=== PATIENT | female | born 1995 | race Asian ===

== ENCOUNTER 2018-08-20 16:25 | Inpatient (IN) | payer OTHER ==
[~2018-08-20] VITALS: Ht 160 cm; Wt 57.5 kg
[2018-08-20] MEDS: DEXTROSE 5%-0.45% NACL 1,000 ML IV SCH (00:30)
[2018-08-20] MEDS ORDERED: LEVOFLOXACIN 750MG/D5W (PMX) 150 ML IVPB ONE (16:30)
[2018-08-20] MEDS ORDERED: VANCOMYCIN 1 GM (PMX) 250 ML IVPB ONE (16:30)
[2018-08-20] MEDS ORDERED: SODIUM CHLORIDE 0.9% 1L BAG IV* STA (16:30)
[2018-08-20] MEDS ORDERED: CEFEPIME 2GM/50 ML (PMX) 50 ML IVPB STA (16:30)
[2018-08-20] MEDS ORDERED: FER325 PO (17:22)
[2018-08-20] MEDS ORDERED: CALC1TAB93 PO (17:23)
[2018-08-20] MEDS ORDERED: HYDR200T39 PO (17:24)
[2018-08-20] MEDS ORDERED: PRED10TA PO (17:25)
--- NOTE | 2018-08-20 17:30 | NUR ---
@[id number] MD DO LUMBAR PUNCTURE FIRST BEFORE CT SCAN. AWARE WE WILL BE IN CT DIVERGENCE FOR BACK TO BACK C-DIFF PATIENTS FOR CT.
--- NOTE | 2018-08-20 17:42 | ERD ---
ER Documentation Chief Complaint Chief Complaint ALOC, traveled from [facility] arrived from [facility] to ER HPI This is a 22-year-old female who presents to the emergency department landing at [facility] Airport from [facility] where she was traveling recreationally. The patient was born in [facility] and at the age of 12 moved to the [facility] she currently resides. She has received all of her immunizations. The patient left the [facility] on August 03, 2017, 18 days prior to arrival. She traveled to [facility] and subsequently [facility]. On August 10, 2018 the patient had been admitted to [facility] in [facility]. According to the medical records from this [facility] they indicated that the patient has a history of lupus on CellCept but was not taking it regularly. When she had presented to the emergency department she was confused and had a seizure. She had been seen by another doctor 2 days before admission was diagnosed with a sore throat and low-grade fever until this was a viral infection. In August 10 the patient been confused and was speaking nonsensical and was brought to the hospital. The patient had a CT scan of her head performed and was found to be unremarkable. The patient had a seizure in the emergency department that they documented lasted for 1 minute and resolved with 5 mg of Valium. A lumbar puncture was done that showed an elevated opening pressure at 26, elevated protein and low sugar. She had been started on Keppra and was treated empirically for possible viral meningitis. The patient had been started on acyclovir. She was admitted to the neuro intensive care unit. She had a chest radiograph performed that showed a right lower lobe pneumonia and was treated for aspiration. The patient had been given ceftriaxone which was discontinued on day 7. She had a rheumatology and infectious disease consult. She had a positive Dilcia test with low C3 and C4 level that could be a result of her SLE flareup. The strapper and buffer started the patient on Solu-Medrol high- dose 1 g 3 days and then switch to p.o. form. The patient also had autoimmune panels which all came back negative. C3 and C4 level had been improving on the follow-up laboratory work. The strapper and buffer started CellCept on August 17, 2018. The patient on August 19, 2018 was determined stable for transport back to the [facility]. 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 She received sedation in route and the last dose of sedation had been given 3 hours prior to arrival. When the patient arrived to [facility] the physician traveling from [facility] phoned [phone] and EMS transferred the patient to [facility] as requested by the patient's primary care physician Dr. Buckley who stated she is capitated to [facility]. . The patient's [place] language is Tristanian and she speaks very little Lithuanian. EMS indicated that the patient was drowsy but easily arousable with an NG tube that had been placed in [facility] on August 19 prior to transfer as a speech therapist indicated the patient was unsafe to eat normally. ROS All systems reviewed and are negative except as per history of present illness. Medications Home Meds Reported Medications Prednisone* (Prednisone*) 10 Mg Tab, 10 MG PO BID, TAB 08/20/18 Hydroxychloroquine Sulfate* (Hydroxychloroquine Sulfate*) 200 Mg Tablet, 200 MG PO BID, TAB 08/20/18 Calcium Carbonate/Vitamin D3 (OYSTER SHELL 500 MG + VIT D TB) 1 Each Tablet, 1 EACH PO BID, TAB 08/20/18 Ferrous Sulfate* (Ferrous Sulfate*) 325 Mg Tabec, 325 MG PO DAILY, TAB 08/20/18 Allergies Allergies: Coded Allergies: No Known Allergy (Unverified , 08/20/18) Physical Exam Vitals Vital Signs Date Temp Pulse Resp B/P (MAP) Pulse Ox O2 O2 Flow FiO2 Time Delivery Rate 08/20/18 68 14 105/62 97 Room Air 18:30 (76) 08/20/18 70 16 104/62 98 Room Air 17:45 (76) 08/20/18 70 13 92/63 (73) 98 Room Air 16:45 08/20/18 98.3 70 18 107/59 95 16:31 (75) Physical Exam Constitutional:Well-developed. Well-nourished. HEENT:Normocephalic. Atraumatic.Pupils were equal round reactive to light. Very dry mucous membranes.No tonsillar exudates. Neck: No nuchal rigidity. No lymphadenopathy. No posterior cervical spine tenderness or step-offs. Respiratory: Not using accessory muscles of respiration.Lungs were clear to auscultation bilaterally. No rhonchi. No rales. No wheezing. Cardiovascular: Regular rate regular rhythm.No murmurs. No rubs were appreciated.S1, S2 normal. Distal pulses are palpable 2+ bilaterally. GI: Abdomen was soft. Nontender. Non Distended. No pulsatile abdominal masses or bruits. No rebound. No guarding. Bowel sounds were present and normal. Muscle skeletal: Full range of motion of both the upper upper extremities. Patient did not follow verbal command and there is minimal movement of the bilateral lower extremities no assymetrical calf tenderness or swelling. Skin: No petechia, no purpura. No lesions on the palms or the soles of the feet. No maculopapular rash. NEURO: Gait unobserved as patient was too weak to ambulate. Patient was lethargic and open eyes to sternal rub. Withdrew to pain. Did not follow simple verbal commands. Mumbles incomprehensible sounds. Result Diagram: 08/20/18 1730 08/20/18 1730 Results 24 hrs Laboratory Tests Test 08/20/18 16:30 08/20/18 17:27 08/20/18 17:30 08/20/18 18:40 Blood Gas Blood arterial Specimen Source Arterial Blood 08/20/2018 5:38: Date Drawn 14 PM Arterial Blood 7.438 pH (Temp corrected) Arterial Blood 42.8 mmhg pCO2 (Temp correct) Arterial Blood 87.1 mmHG pO2 (Temp corrected) Arterial Blood 28.3 mmol/L HCO3 Arterial Blood 3.7 mmol/L Base Excess Arterial Blood 96.3 mmHG Oxygen Saturatio n Charles Test ACCEPTAB Arterial Blood Right Radial Gas Puncture Site Arterial 0.3 % Blood Carboxyhem oglobin Arterial Blood 0.4 % Methemoglobin Blood Gas A-a O2 11.4 mmHg Differential Oxyhemoglobin 95.6 % Percent Blood Gas 37.0 C Temperature Blood Gas ROOM AIR Modality FiO2 21.0 % Blood Gas M.D. Notified Whom Blood Gas 08/20/2018 5:50: Notified Time 14 PM POC Venous 2.3 mmol/L Lactate White Blood 9.7 10^3/ul Count Red Blood Count 3.20 10^6/ul Hemoglobin 9.3 g/dl Hematocrit 29.8 % Mean Corpuscular 93.1 fl Volume Mean Corpuscular 29.1 pg Hemoglobin Mean Corpuscular 31.2 g/dl Hemoglobin Mattie nt Red Cell 14.5 % Distribution Width Platelet Count 383 10^3/UL Mean Platelet 9.8 fl Volume Immature 3.300 % Granulocytes % Neutrophils % 83.9 % Lymphocytes % 8.9 % Monocytes % 3.8 % Eosinophils % 0.0 % Basophils % 0.1 % Nucleated Red 0.0 /100WBC Blood Cells % Immature 0.320 10^3/ul Granulocytes # Neutrophils # 8.1 10^3/ul Lymphocytes # 0.9 10^3/ul Monocytes # 0.4 10^3/ul Eosinophils # 0.0 10^3/ul Basophils # 0.0 10^3/ul Nucleated Red 0.0 10^3/ul Blood Cells # Absolute 0.117 X10^6 Reticulocyte Count Percent 3.7 % Reticulocyte Count Prothrombin Time 12.2 Sec Prothrombin Time 1.0 Ratio INR 0.89 International Normalized Ratio Activated 23.1 Sec Partial Thrombop last Time Urine Color YELLOW Urine Clarity SLIGHTLY CLOUDY Urine pH 6.0 Urine Specific 1.013 [place] Urine Ketones NEGATIVE mg/dL Urine Nitrite NEGATIVE mg/dL Urine Bilirubin NEGATIVE mg/dL Urine NEGATIVE mg/dL Urobilinogen Urine Leukocyte TRACE Camilla/ul Esterase Urine 9 /HPF Microscopic RBC Urine 7 /HPF Microscopic WBC Urine Bacteria FEW /HPF Urine Mucus FEW /HPF Urine Hemoglobin 3+ mg/dL Urine Glucose NEGATIVE mg/dL Urine Total NEGATIVE mg/dl Protein Sodium Level 138 mmol/L Potassium Level 4.3 mmol/L Chloride Level 100 mmol/L Carbon Dioxide 31 mmol/L Level Anion Gap 7 Blood Urea 21 mg/dl Nitrogen Creatinine 0.46 mg/dl Est Glomerular > 60 mL/min Filtrat Rate mL/min Glucose Level 177 mg/dl Calcium Level 8.5 mg/dl Iron Level 84 ug/dl Total Iron 242 ug/dl Binding Capacity Percent Iron 35 % SAT Saturation Ferritin 841.0 ng/ml Total Bilirubin 0.2 mg/dl Direct Bilirubin 0.00 mg/dl Indirect 0.2 mg/dl Bilirubin Aspartate Amino 32 IU/L Transf (AST/SGOT ) Alanine 64 IU/L Aminotransferase (ALT/SGPT) Alkaline 63 IU/L Phosphatase Lactate 693 IU/L Dehydrogenase Troponin I < 0.012 ng/ml Total Protein 6.4 g/dl Albumin 3.2 g/dl Globulin 3.20 g/dl Albumin/Globulin 1.00 Ratio Amylase Level 53 U/L Lipase 33 U/L Serum HCG, NEGATIVE Qualitative Complement C3 47 mg/dl Complement C4 11 mg/dl CSF Tubes 4 Submitted CSF Volume 7.0 ml CSF Appearance CLEAR CSF Color COLORLESS CSF WBC 3 /cmm CSF RBC 0 /uL CSF Cell Count TUBE#1 Tube # CSF Mononuclear 100.0 % Cells % (Auto) CSF Polynuclear 0.0 % WBCs (%) CSF Glucose 79 mg/dl CSF Total 65 mg/dl Protein Test 08/20/18 19:31 POC Venous 1.5 mmol/L Lactate Current Medications Medications Dose Sig/Radha Start Time Status Last (Trade) Ordered Route PRN Stop Time Admin Dose Reason Admin Sodium 1,800 ml BOLUS OVER 2 08/20/18 DC 08/20/18 Chloride HOURS STAT 16:30 17:52 (NS) IV* 08/20/18 16:36 Cefepime HCl 50 ml @ ONCE STAT 08/20/18 DC 08/20/18 100 mls/hr IVPB 16:30 17:52 08/20/18 16:59 Vancomycin 250 ml @ ONCE ONCE 08/20/18 DC 08/20/18 HCl 125 mls/hr IVPB 16:30 19:11 08/20/18 18:29 150 ml @ ONCE ONCE 08/20/18 DC 08/20/18 Levofloxacin/ 100 mls/hr IVPB 16:30 19:48 Dextrose 08/20/18 17:59 Lidocaine 5 ml STK-MED 08/20/18 DC (Xylocaine ONCE .ROUTE 18:01 1% (Mpf)) 08/20/18 18:02 Procedures/MDM The patient presented to the emergency department with an acute and persistent change in their mental status. The differential diagnosis is diverse however reversible causes such as hypoglycemia, opiate overdose, thiamine deficiency were immediately considered. The patient was placed on a registered nurse cardiac, continuous pulse oximetry and IV access was established. The patients airway was secure however hypoxic events such as anemia, shock, or severe pulmonary disease were all considered as etiologies in this patients presentation. Circulation assessed with good cap refill and did not require fluids or pressure support. Finger stick for rapid glucose determined to be normal. The patient had an NG tube that was in place. The patient was pale and diaphoretic but airway was intact. 12 Lead EKG tracing ordered and reviewed by myself showed: Normal sinus rhythm of 72 bpm and no arrhythmia. VA interval normal. QRS duration normal. No ST segment elevation No ST segment depression. No changes consistent with acute ischemia. The interventional radiologist kindly stated that he will perform a lumbar puncture under fluoroscopy. Dr. Hart had performed the procedures I did feel is necessary to repeat the lumbar puncture for documentation and ruling out a possible meningitis. Reviewing the previous results of the patient's imaging performed in [facility] she had a CT head that was unremarkable she had an MRI of the brain that showed frontal leptomeningeal enhancement and an MRI of the brain that showed mild irregularity of her intracranial vessels. Blood cultures urine cultures and influenza were obtained. Urine was negative. Given her recent prolonged immobilization I did feel is necessary to obtain venous duplex ultrasounds of her lower extremities which showed no evidence of a deep vein thrombosis. I repeated the CT scan the patient had today and there is no intracerebral hemorrhage mass-effect or mid line shift. Chest radiograph showed no evidence of pneumonia. I did not have an exact etiology into the patient's encephalopathy but did feel she required admission to the intensive care unit for continued monitoring she will be admitted to the hospitalist. Critical Care: Time: 120 minutes Treatments/Evaluations: Close monitoring and treatment of unstable vital signs, cardiorespiratory, and neurologic status, while maintaining tight balance of fluid, respiratory, and cardiac interventions. Time does not include performing any of the above billable procedures. Departure Diagnosis: Primary Impression: Altered level of consciousness Additional Impression: Encephalopathy acute Condition: ROBBIE Baez MD Aug 20, 2018 17:38
[2018-08-20] MEDS ORDERED: LIDOCAINE 1% (MPF) 5 ML VIAL ONE (18:01)
[2018-08-20] MEDS ORDERED: LORAZEPAM 2 MG INJ IV ONE ×2 (21:30→22:00)
[2018-08-20] MEDS ORDERED: ALBUTEROL/IPRATROPIUM (NEB) 3 ML AMP NEB PRN (21:30)
--- NOTE | 2018-08-20 22:06 | HP ---
Date/Time of Note Date/Time of Note DATE: 08/20/18 TIME: 22:06 Assessment/Plan VTE Prophylaxis Pharmacological prophylaxis: heparin Lines/Catheters IV Catheter Type (from Nrs): Peripheral IV Assessment/Plan Assessment/Plan 22-year-old female with a history of lupus on CellCept, reportedly noncompliant who have been hospitalized [facility] in [facility] between August 03 and for altered mentation. Patient presented to [facility] a few hours prior to arrival to our ER. She was transported to [facility] per her PMD Dr. Bradshaw recommendation since patient is capitated here. PLAN -Patient had extensive workup at [facility] including negative head CT and MRI. Lumbar puncture shows an opening pressure of 26, elevated protein and decreased glucose. Autoimmune workup shows decreased C3 and C4. She is status post high- dose Solu-Medrol and was also restarted on CellCept after she was seen by rheumatology. Patient was witnessed to have seizure lasting 1 minute when she initially presented at ER in [facility]. She was given Valium x1. Patient was treated for possible viral meningitis with acyclovir. She was also treated for pneumonia with a 7 days course of ceftriaxone. -Patient now still altered, agitated. Head CT here in our ER was negative for any acute findings. LP negative. Vital stable. Lab shows a hemoglobin of 9.3 otherwise CBC and CMP within acceptable range. -Admit to ICU -Will we will check RONI, dsDNA, C3 and C4 -Infectious workup -will continue her CellCept, which was started couple of days prior to transfer to [place] -will also treat empirically with steroid -Rheumatology and neurology consult Result Diagram: 08/20/18 1730 08/20/18 1730 Results 24hrs Laboratory Tests Test 08/20/18 16:30 08/20/18 17:27 08/20/18 17:30 08/20/18 18:40 Blood Gas Blood arterial Specimen Source Arterial Blood 08/20/2018 5:38: Date Drawn 14 PM Arterial Blood 7.438 pH (Temp corrected) Arterial Blood 42.8 pCO2 (Temp correct) Arterial Blood 87.1 pO2 (Temp corrected) Arterial Blood 28.3 H HCO3 Arterial Blood 3.7 H Base Excess Arterial Blood 96.3 Oxygen Saturatio n Charles Test ACCEPTAB Arterial Blood Right Radial Gas Puncture Site Arterial 0.3 Blood Carboxyhem oglobin Arterial Blood 0.4 Methemoglobin Blood Gas A-a O2 11.4 Differential Oxyhemoglobin 95.6 Percent Blood Gas 37.0 Temperature Blood Gas ROOM AIR Modality FiO2 21.0 Blood Gas M.D. Notified Whom Blood Gas 08/20/2018 5:50: Notified Time 14 PM POC Venous 2.3 *H Lactate White Blood 9.7 Count Red Blood Count 3.20 L Hemoglobin 9.3 L Hematocrit 29.8 L Mean Corpuscular 93.1 Volume Mean Corpuscular 29.1 Hemoglobin Mean Corpuscular 31.2 L Hemoglobin Mattie nt Red Cell 14.5 Distribution Width Platelet Count 383 Mean Platelet 9.8 Volume Immature 3.300 H Granulocytes % Neutrophils % 83.9 H Lymphocytes % 8.9 L Monocytes % 3.8 Eosinophils % 0.0 Basophils % 0.1 Nucleated Red 0.0 Blood Cells % Immature 0.320 H Granulocytes # Neutrophils # 8.1 H Lymphocytes # 0.9 Monocytes # 0.4 Eosinophils # 0.0 Basophils # 0.0 Nucleated Red 0.0 Blood Cells # Absolute 0.117 H Reticulocyte Count Percent 3.7 H Reticulocyte Count Prothrombin Time 12.2 Prothrombin Time 1.0 Ratio INR 0.89 International Normalized Ratio Activated 23.1 Partial Thrombop last Time Urine Color YELLOW Urine Clarity SLIGHTLY CLOUDY A Urine pH 6.0 Urine Specific 1.013 [place] Urine Ketones NEGATIVE Urine Nitrite NEGATIVE Urine Bilirubin NEGATIVE Urine NEGATIVE Urobilinogen Urine Leukocyte TRACE A Esterase Urine 9 H Microscopic RBC Urine 7 H Microscopic WBC Urine Bacteria FEW A Urine Mucus FEW A Urine Hemoglobin 3+ H Urine Glucose NEGATIVE Urine Total NEGATIVE Protein Sodium Level 138 Potassium Level 4.3 Chloride Level 100 Carbon Dioxide 31 Level Anion Gap 7 Blood Urea 21 H Nitrogen Creatinine 0.46 Est Glomerular > 60 Filtrat Rate mL/min Glucose Level 177 Calcium Level 8.5 Iron Level 84 Total Iron 242 Binding Capacity Percent Iron 35 Saturation Ferritin 841.0 H Total Bilirubin 0.2 Direct Bilirubin 0.00 Indirect 0.2 Bilirubin Aspartate Amino 32 Transf (AST/SGOT ) Alanine 64 Aminotransferase (ALT/SGPT) Alkaline 63 Phosphatase Lactate 693 H Dehydrogenase Troponin I < 0.012 Total Protein 6.4 Albumin 3.2 L Globulin 3.20 Albumin/Globulin 1.00 Ratio Amylase Level 53 Lipase 33 Serum HCG, NEGATIVE Qualitative Complement C3 47 L Complement C4 11 L CSF Tubes 4 Submitted CSF Volume 7.0 CSF Appearance CLEAR CSF Color COLORLESS CSF WBC 3 CSF RBC 0 CSF Cell Count TUBE#1 Tube # CSF Mononuclear 100.0 Cells % (Auto) CSF Polynuclear 0.0 WBCs (%) CSF Glucose 79 CSF Total 65 H Protein Test 08/20/18 19:31 POC Venous 1.5 Lactate HPI/ROS Admit Date/Time Admit Date/Time Hx of Present Illness This is a 22-year-old female with a history of lupus on CellCept, noncompliant who was initially admitted in the hospital at [facility] between August 03 and August 19 for altered mentation. Patient had CT of the head as well as MRI which was nondiagnostic. Lumbar puncture shows opening pressure of 26, elevated protein and decreased glucose. Rheumatologic workup shows a decreased C3 and C4. Patient was seen by rheumatology and was treated with high-dose Solu-Medrol and was placed on CellCept. Patient also had a seizure in the ER at [place] lasting 1 minute. At that time she was given Valium. Patient was also treated for viral meningitis with acyclovir and also for pneumonia while she was there. Reportedly a week prior to presentation to the hospital she had a sore throat which was thought to be of viral etiology. Patient arrived to [facility] accompanied by her doctor and the nurse. From there patient was transported to [facility] per her primary doctor Dr. Cuellar recommendations since she is capitated here. Patient was brought from [facility] with an NG tube in place. She presents the ER, patient was confused and agitated. Initial vitals stable. Her CBC and CMP shows a hemoglobin of 9.3 otherwise within acceptable range. Head CT without acute findings. PMH/Family/Social Past Medical History Medications Current Medications Dextrose/Sodium Chloride 1,000 ml @ 120 mls/hr Q8H20M IV ; Start 08/20/18 at 21:28 Albuterol/ Ipratropium (Duoneb) 3 ml Q2H RESP THERAPY PRN NEB SHORTNESS OF BREATH; Start 08/20/18 at 21:30 Coded Allergies: No Known Allergy (Unverified , 08/25/18) Family History Significant Family History: no pertinent family hx Social History Alcohol Use: occasionally Smoking Status: Never smoker Drug Use: none, other Exam/Review of Systems Vital Signs Vitals Vital Signs Date Temp Pulse Resp B/P (MAP) Pulse Ox O2 O2 Flow FiO2 Time Delivery Rate 08/20/18 84 16 117/82 100 Room Air 21:05 (94) 08/20/18 98.3 16:31 Exam Exam Constitutional: alert, oriented, well developed, other Head: normocephalic, atraumatic Respiratory: normal air movement Cardiovascular: regular rate and rhythm Gastrointestinal: soft Extremities: normal pulses PMH: see HPI PSH: see HPI . LALY MORATAYA MD Aug 20, 2018 22:06
[2018-08-21] VITALS (26 sets, daily range): BP systolic 101–129; BP diastolic 64–110; PULSE 65–118; RESP 13–24; Ht 160 cm; Wt 57.5 kg
[2018-08-21] MEDS: DEXTROSE 5%-0.45% NACL 1,000 ML IV SCH ×4 (00:30→18:21)
[2018-08-21] MEDS ORDERED: LORAZEPAM 2 MG INJ IV ONE ×2 (02:00→03:20)
[2018-08-21] MEDS ORDERED: HALOPERIDOL 5 MG INJ IM ONE (03:20)
[2018-08-21] MEDS ORDERED: DIPHENHYDRAMINE 50 MG INJ IV ONE (03:20)
[2018-08-21] MEDS ORDERED: HYDROmorphONE 1 MG/ML SYG IV ONE (05:30)
[2018-08-21] MEDS ORDERED: DIAZEPAM 5 MG/ML SYG IV ONE (05:30)
[2018-08-21] MEDS ORDERED: VANCOMYCIN IV PER PHARMACY XX SCH (06:00)
[2018-08-21] MEDS ORDERED: DEXAMETHASONE 4 MG/ML 1 ML INJ IV ONE (06:00)
[2018-08-21] MEDS: ACYCLOVIR 500 MG in DEXTROSE 5% 100 ML IVPB SCH ×3 (07:30→21:14)
[2018-08-21] MEDS: VANCOMYCIN 1 GM 250 ML IVPB SCH ×2 (08:42→16:49)
[2018-08-21] MEDS: CEFEPIME 1GM/50 ML (PMX) 50 ML IVPB SCH ×2 (08:42→21:14)
--- NOTE | 2018-08-21 08:46 | NUR ---
Vancomycin per Rx 22 year old female 5' 3" 57.5 kg NKA Other antibiotics: Cefepime, Acyclovir WBC 9.7 BUN/Scr 21/0.46 Received Vancomycin 1 gram IVPB x1 in ER on 08/20 at 19:11 A/P: Start Vancomycin 1 gram IVPB q8h. Check trough tomorrow AM. Pharmacy to follow.
--- NOTE | 2018-08-21 11:04 | PN ---
Date/Time of Note Date/Time of Note DATE: 08/21/18 TIME: 10:34 Assessment/Plan VTE Prophylaxis Risk score (from Nsg)>0 risk: 3 SCD applied (from Nsg): Yes Pharmacological prophylaxis: other Lines/Catheters IV Catheter Type (from Nrsg): Peripheral IV Urinary Cath still in place: Yes Reason Cath still needed: urinary retention Assessment/Plan Hospital Course S: Patient in respiratory isolation, had MRI brain and CT brain performed. Still waiting for neurology to see patient. Per nursing staff complained of headache last night and received Ativan 3 times, as well as Dilaudid x 1. Medical records from [facility] where she was recently t reated for leptomeningitis (which accompanied the patient), were reviewed briefly. O: VS - see below PE: Gen: Lying in bed, lethargic, NG tube in place HEENT:Pupils were equal round reactive to light. Very dry mucous membranes. Neck: No nuchal rigidity. Respiratory: Not using accessory muscles of respiration.Lungs were clear to auscultation bilaterally. No rhonchi. No rales. No wheezing. Cardiovascular: Regular rate regular rhythm.No murmurs. No rubs were appreciated.S1, S2 normal GI: Abdomen was soft. Nontender. Non Distended. No rebound. No guarding. Bowel sounds were present and normal. Muscle skeletal: Full range of motion of both the upper upper extremities. Patient did not follow verbal command and there is minimal movement of the bilateral lower extremities no assymetrical calf tenderness or swelling. Skin: No petechia, no purpura. No lesions on the palms or the soles of the feet. No maculopapular rash. NEURO: Gait unobserved as patient was too weak to ambulate. Patient was lethargic and open eyes to sternal rub. Withdrew to pain. Did not follow simple verbal commands. Mumbles incomprehensible sounds. A/P: Assessment/Plan: 22-year-old female with a history of lupus on CellCept, reportedly noncompliant who have been hospitalized [facility] in [facility] between August 03 and for altered mentation. Patient presented to [facility] a few hours prior to arrival to our ER. She was transported to [facility] yesterday per her PMD Dr. Bradshaw recommendation since patient is capitated here. # AMS -unclear etiology. Patient had extensive workup at [facility] earlier this month including negative head CT and MRI. Lumbar puncture there showed an opening pressure of 26, elevated protein and decreased glucose. Autoimmune workup showed decreased C3 and C4. She is status post high-dose Solu-Medrol and was also restarted on CellCept after she was seen by rheumatology at that [facility] earlier this month. Patient was witnessed to have seizure lasting 1 minute when she initially presented at ER in [facility]. She was given Valium x1. Patient was treated for possible viral meningitis with acyclovir. She was also treated for pneumonia with a 7 days course of ceftriaxone Patient now still altered, agitated. Brain MRI and head CT here in our ER was negative for any acute findings. LP has elevated total protein, otherwise appears negative. Vital stable. Lab shows a hemoglobin of 9.3 otherwise CBC and CMP within acceptable range. -For now continue care in ICU, continue acyclovir, and other broad-spectrum antibiotics. -Follow-up RONI, dsDNA, C3 and C4 -ordered -Consider infectious disease and neurology consults -continue her CellCept, which was started couple of days prior to transfer to [place] -will also treat empirically with steroid -Consider consult from rheumatology team #Possible seizures: Again appeared to occur earlier this month at the [facility] in [facility]. As well, on her flight back to 24 hours ago patient possibly had seizure activity on the plane. -EEG results reviewed from formerly [facility] performed on August 10, 2018, will go ahead and order another EEG since there may be new seizure activity occurring since then. -Follow-up recommended from neurology team, add Ativan as needed # GI ppx -H2 fernando Critical care time spent on patient care today equals 50 minutes. Result Diagram: 08/20/18 1730 08/20/18 1730 Results 24hrs Laboratory Tests Test 08/20/18 16:30 08/20/18 17:27 08/20/18 17:30 08/20/18 18:40 Blood Gas Blood arterial Specimen Source Arterial Blood 08/20/2018 5:38: Date Drawn 14 PM Arterial Blood 7.438 pH (Temp corrected) Arterial Blood 42.8 pCO2 (Temp correct) Arterial Blood 87.1 pO2 (Temp corrected) Arterial Blood 28.3 H HCO3 Arterial Blood 3.7 H Base Excess Arterial Blood 96.3 Oxygen Saturatio n Charles Test ACCEPTAB Arterial Blood Right Radial Gas Puncture Site Arterial 0.3 Blood Carboxyhem oglobin Arterial Blood 0.4 Methemoglobin Blood Gas A-a O2 11.4 Differential Oxyhemoglobin 95.6 Percent Blood Gas 37.0 Temperature Blood Gas ROOM AIR Modality FiO2 21.0 Blood Gas M.D. Notified Whom Blood Gas 08/20/2018 5:50: Notified Time 14 PM POC Venous 2.3 *H Lactate White Blood 9.7 Count Red Blood Count 3.20 L Hemoglobin 9.3 L Hematocrit 29.8 L Mean Corpuscular 93.1 Volume Mean Corpuscular 29.1 Hemoglobin Mean Corpuscular 31.2 L Hemoglobin Mattie nt Red Cell 14.5 Distribution Width Platelet Count 383 Mean Platelet 9.8 Volume Immature 3.300 H Granulocytes % Neutrophils % 83.9 H Lymphocytes % 8.9 L Monocytes % 3.8 Eosinophils % 0.0 Basophils % 0.1 Nucleated Red 0.0 Blood Cells % Immature 0.320 H Granulocytes # Neutrophils # 8.1 H Lymphocytes # 0.9 Monocytes # 0.4 Eosinophils # 0.0 Basophils # 0.0 Nucleated Red 0.0 Blood Cells # Absolute 0.117 H Reticulocyte Count Percent 3.7 H Reticulocyte Count Prothrombin Time 12.2 Prothrombin Time 1.0 Ratio INR 0.89 International Normalized Ratio Activated 23.1 Partial Thrombop last Time Urine Color YELLOW Urine Clarity SLIGHTLY CLOUDY A Urine pH 6.0 Urine Specific 1.013 [place] Urine Ketones NEGATIVE Urine Nitrite NEGATIVE Urine Bilirubin NEGATIVE Urine NEGATIVE Urobilinogen Urine Leukocyte TRACE A Esterase Urine 9 H Microscopic RBC Urine 7 H Microscopic WBC Urine Bacteria FEW A Urine Mucus FEW A Urine Hemoglobin 3+ H Urine Glucose NEGATIVE Urine Total NEGATIVE Protein Sodium Level 138 Potassium Level 4.3 Chloride Level 100 Carbon Dioxide 31 Level Anion Gap 7 Blood Urea 21 H Nitrogen Creatinine 0.46 Est Glomerular > 60 Filtrat Rate mL/min Glucose Level 177 Calcium Level 8.5 Iron Level 84 Total Iron 242 Binding Capacity Percent Iron 35 Saturation Ferritin 841.0 H Total Bilirubin 0.2 Direct Bilirubin 0.00 Indirect 0.2 Bilirubin Aspartate Amino 32 Transf (AST/SGOT ) Alanine 64 Aminotransferase (ALT/SGPT) Alkaline 63 Phosphatase Lactate 693 H Dehydrogenase Troponin I < 0.012 Total Protein 6.4 Albumin 3.2 L Globulin 3.20 Albumin/Globulin 1.00 Ratio Amylase Level 53 Lipase 33 Serum HCG, NEGATIVE Qualitative Complement C3 47 L Complement C4 11 L CSF Tubes 4 Submitted CSF Volume 7.0 CSF Appearance CLEAR CSF Color COLORLESS CSF WBC 3 CSF RBC 0 CSF Cell Count TUBE#1 Tube # CSF Mononuclear 100.0 Cells % (Auto) CSF Polynuclear 0.0 WBCs (%) CSF Glucose 79 CSF Total 65 H Protein Test 08/20/18 19:31 POC Venous 1.5 Lactate Exam/Review of Systems Vital Signs Vitals Vital Signs Date Temp Pulse Resp B/P (MAP) Pulse Ox O2 O2 Flow FiO2 Time Delivery Rate 08/21/18 83 13 117/87 100 Nasal 10:00 (97) Cannula 08/21/18 98.3 08:00 Intake and Output 08/20/18 08/20/18 08/21/18 1515:00 23:00 07:00 OutputOutput Total 920 ml BalanceBalance -920 ml Medications Medications Current Medications Dextrose/Sodium Chloride 1,000 ml @ 120 mls/hr Q8H20M IV Last administered on 08/21/18at 06:42; Admin Dose 120 MLS/HR; Start 08/20/18 at 21:28 Albuterol/ Ipratropium (Duoneb) 3 ml Q2H RESP THERAPY PRN NEB SHORTNESS OF BREATH; Start 08/20/18 at 21:30 Vancomycin HCl (Vanco Iv Per Pharmacy) VANCOMYCIN PER PHARMACY PER PROTOCOL XX ; Start 08/21/18 at 06:00 Cefepime HCl 50 ml @ 100 mls/hr Q12 IVPB Last administered on 08/21/18at 08:42; Admin Dose 100 MLS/HR; Start 08/21/18 at 09:00 Acyclovir 500 mg/ Dextrose 100 ml @ 100 mls/hr Q8 IVPB ; Start 08/21/18 at 06:00 Vancomycin HCl 250 ml @ 125 mls/hr Q8H IVPB Last administered on 08/21/18at 0 8:42; Admin Dose 125 MLS/HR; Start 08/21/18 at 08:00 Miscellaneous Information (*Rx Drug Level Order Reminder*) VANCO TROUGH @ 0,700 ON... ONCE ONCE XX ; Start 08/22/18 at 07:00; Stop 08/22/18 at 07:01 JAXON FERNÁNDEZ Aug 21, 2018 10:44
[2018-08-21] MEDS ORDERED: LORAZEPAM 2 MG INJ IV PRN (11:30)
[2018-08-21] MEDS ORDERED: HYDROmorphONE 0.5 MG/0.5 ML SYG IV PRN (11:30)
--- NOTE | 2018-08-21 12:03 | CONS ---
Date/Time of Note Date/Time of Note DATE: 08/21/18 TIME: 11:47 Assessment/Plan Assessment/Plan Assessment/Plan IMP: 1. Meningoencephalitis--etiology unclear. In view of extensive negative work-up, considerations include autoimmune (limbic associated with SLE or anti-NMDA) vs paraneoplastic encephalitis vs. ADEM (acute disseminated encephalomyelitis) RECS: 1. Would send CSF for autoimmune and paraneoplastic panels (send out labs). 2. 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 Would initiate keppra 4. Continue CS and cellcept 5. If condition deteriorates, would consider pulse dose CS and IV ig 6. Rheum and Neuro consult Result Diagram: 08/20/18 1730 08/20/18 1730 Results 24hrs Laboratory Tests Test 08/20/18 16:30 08/20/18 17:27 08/20/18 17:30 08/20/18 18:40 Blood Gas Blood arterial Specimen Source Arterial Blood 08/20/2018 5:38: Date Drawn 14 PM Arterial Blood 7.438 pH (Temp corrected) Arterial Blood 42.8 pCO2 (Temp correct) Arterial Blood 87.1 pO2 (Temp corrected) Arterial Blood 28.3 H HCO3 Arterial Blood 3.7 H Base Excess Arterial Blood 96.3 Oxygen Saturatio n Charles Test ACCEPTAB Arterial Blood Right Radial Gas Puncture Site Arterial 0.3 Blood Carboxyhem oglobin Arterial Blood 0.4 Methemoglobin Blood Gas A-a O2 11.4 Differential Oxyhemoglobin 95.6 Percent Blood Gas 37.0 Temperature Blood Gas ROOM AIR Modality FiO2 21.0 Blood Gas M.D. Notified Whom Blood Gas 08/20/2018 5:50: Notified Time 14 PM POC Venous 2.3 *H Lactate White Blood 9.7 Count Red Blood Count 3.20 L Hemoglobin 9.3 L Hematocrit 29.8 L Mean Corpuscular 93.1 Volume Mean Corpuscular 29.1 Hemoglobin Mean Corpuscular 31.2 L Hemoglobin Mattie nt Red Cell 14.5 Distribution Width Platelet Count 383 Mean Platelet 9.8 Volume Immature 3.300 H Granulocytes % Neutrophils % 83.9 H Lymphocytes % 8.9 L Monocytes % 3.8 Eosinophils % 0.0 Basophils % 0.1 Nucleated Red 0.0 Blood Cells % Immature 0.320 H Granulocytes # Neutrophils # 8.1 H Lymphocytes # 0.9 Monocytes # 0.4 Eosinophils # 0.0 Basophils # 0.0 Nucleated Red 0.0 Blood Cells # Absolute 0.117 H Reticulocyte Count Percent 3.7 H Reticulocyte Count Prothrombin Time 12.2 Prothrombin Time 1.0 Ratio INR 0.89 International Normalized Ratio Activated 23.1 Partial Thrombop last Time Urine Color YELLOW Urine Clarity SLIGHTLY CLOUDY A Urine pH 6.0 Urine Specific 1.013 [place] Urine Ketones NEGATIVE Urine Nitrite NEGATIVE Urine Bilirubin NEGATIVE Urine NEGATIVE Urobilinogen Urine Leukocyte TRACE A Esterase Urine 9 H Microscopic RBC Urine 7 H Microscopic WBC Urine Bacteria FEW A Urine Mucus FEW A Urine Hemoglobin 3+ H Urine Glucose NEGATIVE Urine Total NEGATIVE Protein Sodium Level 138 Potassium Level 4.3 Chloride Level 100 Carbon Dioxide 31 Level Anion Gap 7 Blood Urea 21 H Nitrogen Creatinine 0.46 Est Glomerular > 60 Filtrat Rate mL/min Glucose Level 177 Calcium Level 8.5 Iron Level 84 Total Iron 242 Binding Capacity Percent Iron 35 Saturation Ferritin 841.0 H Total Bilirubin 0.2 Direct Bilirubin 0.00 Indirect 0.2 Bilirubin Aspartate Amino 32 Transf (AST/SGOT ) Alanine 64 Aminotransferase (ALT/SGPT) Alkaline 63 Phosphatase Lactate 693 H Dehydrogenase Troponin I < 0.012 Total Protein 6.4 Albumin 3.2 L Globulin 3.20 Albumin/Globulin 1.00 Ratio Amylase Level 53 Lipase 33 Serum HCG, NEGATIVE Qualitative Complement C3 47 L Complement C4 11 L CSF Tubes 4 Submitted CSF Volume 7.0 CSF Appearance CLEAR CSF Color COLORLESS CSF WBC 3 CSF RBC 0 CSF Cell Count TUBE#1 Tube # CSF Mononuclear 100.0 Cells % (Auto) CSF Polynuclear 0.0 WBCs (%) CSF Glucose 79 CSF Total 65 H Protein Test 08/20/18 19:31 08/21/18 11:36 POC Venous 1.5 Lactate Hepatitis B Pending Surface Antigen Hepatitis B Core Pending Total Antibody Hepatitis C Pending Antibody Consultation Date/Type/Reason Admit Date/Time Date of Consultation: Aug 21, 2018 Reason for Consultation AMS Hx of Present Illness Briefly, this is a 22-year-old female with a history of lupus on cellCept, noncompliant who was initially admitted in the hospital at [facility] between August 03 and August 19 for altered mentation after presenting there with high fevers and seizures. MRI showed leptomeningeal enhancement in the frontoparietal regions. Lumbar puncture shows opening pressure of 26, elevated protein and decreased glucose. Rheumatologic workup shows a decreased C3 and C4. Patient was seen by rheumatology and was treated with high-dose Solu-Medrol and was placed on CellCept. Patient was also treated for viral meningitis with acyclovir and also for pneumonia while she was there. It appears that she was flown back yesterday at which time, she was transferred directly to [facility] after experiencing a seizure. The patient has extensive medical records that accompany her. 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 Medications Current Medications Dextrose/Sodium Chloride 1,000 ml @ 120 mls/hr Q8H20M IV Last administered on 08/21/18at 06:42; Admin Dose 120 MLS/HR; Start 08/20/18 at 21:28 Albuterol/ Ipratropium (Duoneb) 3 ml Q2H RESP THERAPY PRN NEB SHORTNESS OF BREATH; Start 08/20/18 at 21:30 Vancomycin HCl (Vanco Iv Per Pharmacy) VANCOMYCIN PER PHARMACY PER PROTOCOL XX ; Start 08/21/18 at 06:00 Cefepime HCl 50 ml @ 100 mls/hr Q12 IVPB Last administered on 08/21/18at 08:42; Admin Dose 100 MLS/HR; Start 08/21/18 at 09:00 Acyclovir 500 mg/ Dextrose 100 ml @ 100 mls/hr Q8 IVPB ; Start 08/21/18 at 06:00 Vancomycin HCl 250 ml @ 125 mls/hr Q8H IVPB Last administered on 08/21/18at 08:42; Admin Dose 125 MLS/HR; Start 08/21/18 at 08:00 Miscellaneous Information (*Rx Drug Level Order Reminder*) VANCO TROUGH @ 0,700 ON... ONCE ONCE XX ; Start 08/22/18 at 07:00; Stop 08/22/18 at 07:01 Famotidine (Pepcid Iv) 20 mg DAILY IV ; Start 08/22/18 at 09:00 Lorazepam (Ativan) 1 mg Q2H PRN IV SEIZURES; Start 08/21/18 at 11:30 Hydromorphone HCl (Dilaudid) 0.25 mg Q12H PRN IV SEVERE PAIN LEVEL 7-10; Start 08/21/18 at 11:30 Allergies: Coded Allergies: No Known Allergy (Unverified , 08/20/18) Past Surgical History Past Surgical Hx: no surgical history Family History Significant Family History: no pertinent family hx Social History Alcohol Use: none Smoking Status: Unknown if ever smoked Drug Use: none Exam/Review of Systems Vital Signs Vitals Vital Signs Date Temp Pulse Resp B/P (MAP) Pulse Ox O2 O2 Flow FiO2 Time Delivery Rate 08/21/18 83 13 117/87 100 Nasal 10:00 (97) Cannula 08/21/18 98.3 08:00 Intake and Output 08/20/18 08/20/18 08/21/18 1515:00 23:00 07:00 OutputOutput Total 920 ml BalanceBalance -920 ml Exam Constitutional: non-verbal Head: normocephalic, atraumatic Eyes: nl conjunctiva, EOMI, nl lids, nl sclera ENMT: nl external ears & nose, nl lips & teeth, nl nasal mucosa & septum, mucosa pink and moist Neck: supple, non-tender Respiratory: clear to auscultation, normal air movement Cardiovascular: regular rate and rhythm, nl pulses Gastrointestinal: soft, nl liver, spleen, non-tender Extremities: normal pulses Neurological: confused, DTR's symmetric, focal weakness Medications Medications Current Medications Dextrose/Sodium Chloride 1,000 ml @ 120 mls/hr Q8H20M IV Last administered on 08/21/18at 06:42; Admin Dose 120 MLS/HR; Start 08/20/18 at 21:28 Albuterol/ Ipratropium (Duoneb) 3 ml Q2H RESP THERAPY PRN NEB SHORTNESS OF BREATH; Start 08/20/18 at 21:30 Vancomycin HCl (Vanco Iv Per Pharmacy) VANCOMYCIN PER PHARMACY PER PROTOCOL XX ; Start 08/21/18 at 06:00 Cefepime HCl 50 ml @ 100 mls/hr Q12 IVPB Last administered on 08/21/18at 08:42; Admin Dose 100 MLS/HR; Start 08/21/18 at 09:00 Acyclovir 500 mg/ Dextrose 100 ml @ 100 mls/hr Q8 IVPB ; Start 08/21/18 at 06:00 Vancomycin HCl 250 ml @ 125 mls/hr Q8H IVPB Last administered on 08/21/18at 08:42; Admin Dose 125 MLS/HR; Start 08/21/18 at 08:00 Miscellaneous Information (*Rx Drug Level Order Reminder*) VANCO TROUGH @ 0,700 ON... ONCE ONCE XX ; Start 08/22/18 at 07:00; Stop 08/22/18 at 07:01 Famotidine (Pepcid Iv) 20 mg DAILY IV ; Start 08/22/18 at 09:00 Lorazepam (Ativan) 1 mg Q2H PRN IV SEIZURES; Start 08/21/18 at 11:30 Hydromorphone HCl (Dilaudid) 0.25 mg Q12H PRN IV SEVERE PAIN LEVEL 7-10; Start 08/21/18 at 11:30 DRAGAN BOLANOS MD Aug 21, 2018 12:03
--- NOTE | 2018-08-21 12:36 | NUR ---
22-year-old female hospitalized in [facility] from 08/03/2018 to 08/19/2018. Transferred to [facility] from [facility]. Pt has a h/o lupus with AMS. PMH (+) Systemic lupus erythematosus and encephalitis of unclear origin. MRI of the brain revealed no intracranial abnormalities. Chest x-ray revealed no evidence for acute cardiopulmonary disease. FINDINGS: Pt awake and cooperative. NGT in place. Pt understands and speaks Welsh. Positioned HOB up at 90 degrees. Given a trial of pureed, soft solids, thick/thin liquids. PUREED: Given via tsp x 3-4. Pt barely opens her mouth to accept the tsp. Prolonged oral stage with delayed bolus transfer. Eventually swallows w/o s/s of aspiration. SOFT SOLIDS: Given pieces of soft cookie. Again, prolonged oral stage/mastication. Eventually swallows w/o aspiration signs. Min amount of residue remaining in oral cavity post swallows. THICK LIQUID: Given sips of NTL and HTL via cup. Timelier swallows than with the solids and pureed. No cough, throat clear or vocal change noted post swallows. THIN LIQUID: Given via tsp and straw. Pt with audible and disorganized swallows on large volumes suggesting premature spillage into the hypopharynx. She demonstrated throat clearing and cough post swallows. Swallow was more efficient when thin liquids given via tsp. IMPRESSION: Dysphagia with risk to aspirate exacerbated by altered mentation and decreased endurance. RECOMMENDATIONS: Recommend a mechanical-soft diet with ground meat. Thin liquids to be given via tsp only. STG: Patient will tolerate mech-soft diet with ground meat w/o s/s of aspiration. Patient will tolerate thin liquids via tsp w/o s/s of aspiration. Patient will tolerate thin liquids given via cup/straw w/o s/s of aspiration. Patient/cargivers will f/t with safe swallow strategies 80% of the time with min assist. LTG: Patient will tolerate least restrictive diet w/o s/s of aspiration.
--- NOTE | 2018-08-21 19:59 | NUR ---
END OF SHIFT: All needs attended. No significant change in condition. All due meds given. NEURO: Somewhat improved. Oriented x2. Oriented to name and situation. on and off confusion. Understood Monegasque, but patient speaks little Monegasque. Follows simple commands. Had x1 episode of being anxious when wants to have a bowel movement, strongly refused to use bedpan. Bedside commode x2, able to transfer from bed to commode using max assist with 2 person. Patient's gait unsteady, and weak. Explained to family, patient is at risk for fall. EEG as ordered done. Afebrile during the shift. Spoke to Dr. Sykes around 1830. aware about the consult. RESP: On room air. 02sat 100%. CARD: Remains sinus rhythm. Sinus tach > 130 when being anxious. Vital signs stable. GI: NG tube discontinued as ordered. Patient passed swallow eval. On mechanical soft diet. : Abdominal US completed. Urine output sufficient. SKIN: Turn and repositioned [id number]. No new wound identified. OOB x2 and stayed in the bedside commode 30mins. Report given to incoming RN: Claus.
[2018-08-21] MEDS: MYCOPHENOLATE 250 MG CAP PO SCH (21:14)
[2018-08-22] VITALS (19 sets, daily range): BP systolic 105–116; BP diastolic 55–84; PULSE 74–114; RESP 12–22
[2018-08-22] MEDS: VANCOMYCIN 1 GM 250 ML IVPB SCH (00:06)
[2018-08-22] MEDS ORDERED: HYDROmorphONE 1 MG/ML SYG IV ONE (01:45)
[2018-08-22] MEDS: DEXTROSE 5%-0.45% NACL 1,000 ML IV SCH ×3 (03:42→23:28)
[2018-08-22] MEDS: ACYCLOVIR 500 MG in DEXTROSE 5% 100 ML IVPB SCH ×3 (06:33→22:00)
--- NOTE | 2018-08-22 06:34 | EEG ---
EEG NOTE Report Details DATE OF TEST: 08/21/18 HISTORY: The patient is a 22-year-old F who presents with altered mental status. This EEG is requested to rule out nonconvulsive status epilepticus. SEDATION: None. CONDITIONS OF RECORDING: This EEG was recorded digitally on the [employer] machine, using the International 10-20 System of electrodes plus anterior temporals and [place]. STATES SAMPLED: Lethargic. FINDINGS: The background is grossly continuos and symmetric...predominated by polymorphic theta and delta activity. The normal [id number] frequency-amplitude gradient was absent. Photic stimulation does not elicit any definite driving responses or epileptiform discharges. Hyperventilation was not performed. No asymmetries, focal abnormalities or epileptiform discharges were seen. IMPRESSION: Abnormal electroencephalogram due to: moderate diffuse slowing. COMMENT: The slowing of the background indicates moderate, diffuse cortical dysfunction of nonspecific etiology. Clinical correlation is advised. DARLINE VÁSQUEZ Aug 22, 2018 06:34
--- NOTE | 2018-08-22 08:08 | NUR ---
Vancomycin per Rx Vancomycin trough = 25.5 (drawn at 07:19) Dose = 1 g q8h Other antibiotics: Cefepime, Acyclovir BUN/Scr 11/0.65 A/P: Decrease to Vancomycin 1 gram IVPB q12h. Pharmacy to follow.
--- NOTE | 2018-08-22 08:17 | CONS ---
Assessment/Plan Assessment/Plan Hospital Course 22 F c/ reported Hx of SLE on immunomodulatory Tx...who is admitted to the [facility] ICU for evaluation and management of ams following recent seizures.. Notably, she recently traveled to [facility], where she developed a febrile illness that was thought consistent w/ pneumonia.. There was perhaps a superimposed aseptic meningitis in that context... MRI brain w/ and w/o contrast is unremarkable Repeat CSF evaluation is now unremarkable.. EEG is without ongoing epileptiform activity.. P: Start Trileptal in the short term (~3 months) given report of repeated clinical seizures prior to this presentation.. Reorient as necessary Limit sedating medications where possible PT/OT as necessary Other management per primary Neurologically stable for transfer to telemetry She cannot drive... Will follow Result Diagram: 08/20/18 1730 08/22/18 0719 Results 24hrs Laboratory Tests Test 08/21/18 11:36 08/22/18 07:19 Iron Level 29 #L Total Iron Binding Capacity 223 L Percent Iron Saturation 13 L Phenytoin (Dilantin) Level < 3.0 L Ethyl Alcohol Level < 10.0 H Hepatitis B Surface Antigen NEGATIVE Hepatitis B Core Total Antibody NEGATIVE Hepatitis C Antibody NEGATIVE HIV (1&2) Antibody NEGATIVE Blood Urea Nitrogen 11 # Creatinine 0.65 Vancomycin Level Trough 25.5 *H Consultation Date/Type/Reason Admit Date/Time Type of Consult Neurology Reason for Consultation ams Requesting Provider: JAXON FERNÁNDEZ Date/Time of Note DATE: 08/22/18 TIME: 08:07 Hx of Present Illness Poor historian. From OSH records, I gather: 22 yo F c/ SLE, who developed a febrile illness while traveling to [facility].. International hospitalization led to an extensive neurologic workup for ams and seizure..that showed a CSF w/ 9 wbc and an elevated protein to 165.. EEG was slow.. She was put on Keppra, and experienced some agitation.. She presented to [facility] following reported seizures in flight back home.. Repeat CSF here was OK. MRI brain here was unremarkable.. EEG was slow.. Here, she was initially confused...which has shown clinical improvement.. She otherwise notes mild gen weakness... 12 PT ROS ow neg Exam/Review of Systems Vital Signs Vitals Vital Signs Date Temp Pulse Resp B/P (MAP) Pulse Ox O2 O2 Flow FiO2 Time Delivery Rate 08/22/18 88 17 109/69 99 Room Air 06:00 (82) 08/22/18 98.4 04:00 Intake and Output 08/21/18 08/21/18 08/22/18 1515:00 23:00 07:00 IntakeIntake Total 1790 ml 1660 ml 1110 ml OutputOutput Total 735 ml 1125 ml 820 ml BalanceBalance 1055 ml 535 ml 290 ml Exam PE: Gen Appearance: No Apparent Distress HEENT: Normocephalic Cardiovascular: Regular rate Lungs: Clear bilaterally Abdomen: Soft Extremities: Dry NE: The patient was alert and oriented. Language was normal. Fund of knowledge was somewhat limited. Pupils were equal and reactive to light. There was no afferent pupillary defect. Visual severino were normal. Funduscopic examination was limited. Extra-ocular movements were full. Ptosis was absent. There was no nystagmus. Facial sensation was normal. Face was symmetric with normal strength. Hearing was intact. Palate movements were normal. Neck strength was normal. There was normal tongue bulk and speed of movement. Tone was normal. Muscle bulk was normal. I did not see fasciculations. Arms and legs were mildly weak, symmetric.. Vibration sensation was normal. Temperature and pinprick sensation was normal. Rapid alternating movements were normal. There was no dysmetria. There was no intention tremor. Gait was deferred due to bedrest. Arm and leg reflexes were 2+ and symmetric. Chatman's sign was absent. Plantar responses were flexor. Medications Medications Current Medications Dextrose/Sodium Chloride 1,000 ml @ 120 mls/hr Q8H20M IV Last administered on 08/22/18at 03:42; Admin Dose 120 MLS/HR; Start 08/20/18 at 21:28 Albuterol/ Ipratropium (Duoneb) 3 ml Q2H RESP THERAPY PRN NEB SHORTNESS OF BREATH; Start 08/20/18 at 21:30 Vancomycin HCl (Vanco Iv Per Pharmacy) VANCOMYCIN PER PHARMACY PER PROTOCOL XX ; Start 08/21/18 at 06:00 Cefepime HCl 50 ml @ 100 mls/hr Q12 IVPB Last administered on 08/21/18at 21:14; Admin Dose 100 MLS/HR; Start 08/21/18 at 09:00 Acyclovir 500 mg/ Dextrose 100 ml @ 100 mls/hr Q8 IVPB Last administered on 08/22/18 06:33; Admin Dose 100 MLS/HR; Start 08/21/18 at 06:00 Famotidine (Pepcid Iv) 20 mg DAILY IV ; Start 08/22/18 at 09:00 Lorazepam (Ativan) 1 mg Q2H PRN IV SEIZURES Last administered on 08/22/18at 00:57; Admin Dose 1 MG; Start 08/21/18 at 11:30 Hydromorphone HCl (Dilaudid) 0.25 mg Q12H PRN IV SEVERE PAIN LEVEL 7-10 Last administered on 08/22/18 00:06; Admin Dose 0.25 MG; Start 08/21/18 at 11:30 Mycophenolate Mofetil (Cellcept) 250 mg BID PO Last administered on 08/21/18 21:14; Admin Dose 250 MG; Start 08/21/18 at 21:00 Past Medical History reviewed Medications Current Medications Dextrose/Sodium Chloride 1,000 ml @ 120 mls/hr Q8H20M IV Last administered on 08/22/18 03:42; Admin Dose 120 MLS/HR; Start 08/20/18 at 21:28 Albuterol/ Ipratropium (Duoneb) 3 ml Q2H RESP THERAPY PRN NEB SHORTNESS OF BREATH; Start 08/20/18 at 21:30 Vancomycin HCl (Vanco Iv Per Pharmacy) VANCOMYCIN PER PHARMACY PER PROTOCOL XX ; Start 08/21/18 at 06:00 Cefepime HCl 50 ml @ 100 mls/hr Q12 IVPB Last administered on 08/21/18 21:14; Admin Dose 100 MLS/HR; Start 08/21/18 at 09:00 Acyclovir 500 mg/ Dextrose 100 ml @ 100 mls/hr Q8 IVPB Last administered on 08/22/18 06:33; Admin Dose 100 MLS/HR; Start 08/21/18 at 06:00 Famotidine (Pepcid Iv) 20 mg DAILY IV ; Start 08/22/18 at 09:00 Lorazepam (Ativan) 1 mg Q2H PRN IV SEIZURES Last administered on 08/22/18 00:57; Admin Dose 1 MG; Start 08/21/18 at 11:30 Hydromorphone HCl (Dilaudid) 0.25 mg Q12H PRN IV SEVERE PAIN LEVEL 7-10 Last administered on 08/22/18at 00:06; Admin Dose 0.25 MG; Start 08/21/18 at 11:30 Mycophenolate Mofetil (Cellcept) 250 mg BID PO Last administered on 08/21/18at 21:14; Admin Dose 250 MG; Start 08/21/18 at 21:00 Allergies: Coded Allergies: No Known Allergy (Unverified , 08/20/18) Past Surgical History Past Surgical Hx: no surgical history Social History Alcohol Use: none Smoking Status: Unknown if ever smoked Drug Use: none DARLINE VÁSQUEZ Aug 22, 2018 08:17
[2018-08-22] MEDS: MYCOPHENOLATE 250 MG CAP PO SCH ×2 (08:24→20:20)
[2018-08-22] MEDS: CEFEPIME 1GM/50 ML (PMX) 50 ML IVPB SCH (08:24)
[2018-08-22] MEDS: FAMOTIDINE 20 MG INJ IV SCH (08:32)
--- NOTE | 2018-08-22 09:22 | PN ---
Date/Time of Note Date/Time of Note DATE: 08/22/18 TIME: 09:06 Assessment/Plan VTE Prophylaxis Risk score (from Nsg)>0 risk: 3 SCD applied (from Nsg): Yes Pharmacological prophylaxis: other Lines/Catheters IV Catheter Type (from Nrsg): Peripheral IV Urinary Cath still in place: Yes Reason Cath still needed: urinary retention Assessment/Plan Hospital Course S: Patient appears to be more awake and alert today, still somewhat lethargic overall. Seen by speech therapy team yesterday, NG tube is out, on mechanical soft diet. Seen by luminary and urology teams yesterday as well. Restarted on CellCept today. Urine culture shows greater than 100,000 ESBL E. coli multidrug-resistant. O: VS - see below PE: Gen: Lying in bed, responsive HEENT:Pupils were equal round reactive to light Neck: No nuchal rigidity. Respiratory: Not using accessory muscles of respiration.Lungs were clear to auscultation bilaterally. No rhonchi. No rales. No wheezing. Cardiovascular: Regular rate regular rhythm.No murmurs. No rubs were appreciated.S1, S2 normal GI: Abdomen was soft. Nontender. Non Distended. No rebound. No guarding. Bowel sounds were present and normal. Muscle skeletal: Full range of motion of both the upper upper extremities, minimal movement of the bilateral lower extremities no assymetrical calf tenderness or swelling. Skin: No petechia, no purpura. No lesions on the palms or the soles of the feet. No maculopapular rash. NEURO: No apparent focal deficits, gait unobserved as patient was too weak to ambulate. EEG August 21, 2018: MPRESSION: Abnormal electroencephalogram due to: moderate diffuse slowing. COMMENT: The slowing of the background indicates moderate, diffuse cortical dysfunction of nonspecific etiology. Clinical correlation is advised. Brain MRI August 21, 2018: IMPRESSION: 1. No acute intracranial abnormality. No intracranial hemorrhage, enhancing mass lesion, infarction or hydrocephalous. 2. No abnormal gyral swelling or leptomeningeal enhancement to suggest encephalitis. Assessment/Plan: 22-year-old female with a history of lupus on CellCept, reportedly noncompliant who have been hospitalized [facility] in [facility] between August 03 and for altered mentation. Patient presented to [facility] a few hours prior to arrival to our ER. She was transported to [facility] yesterday per her PMD Dr. Bradshaw recommendation since patient is capitated here. # AMS -unclear etiology. Slowly improving now. 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 Patient had extensive workup at [facility] earlier this month including negative head CT and MRI. Lumbar puncture there showed an opening pressure of 26, elevated protein and decreased glucose. Autoimmune workup there and here showed decreased C3 and C4. She is status post high-dose Solu-Medrol and was also restarted on CellCept after she was seen by rheumatology at that hospital earlier this month. Patient was witnessed to have seizure lasting 1 minute when she initially presented at ER in [facility]. She was given Valium x1 then. Patient was treated for possible viral meningitis with acyclovir. She was also treated for pneumonia with a 7 days course of ceftriaxone there. Patient again still altered mental status, but slowly improving- brain MRI and head CT here in our ER was negative for any acute findings. LP has elevated total protein, otherwise appears negative. Vital stable. Lab shows a hemoglobin of 9.3 otherwise CBC and CMP within acceptable range. -For now continue acyclovir, and given positive for ESBL E. coli UTI based on sensitivities will start gentamicin today for that -Follow-up RONI, dsDNA results, as well as CSF for autoimmune and paraneoplastic panels (send out) -Follow-up recommendations from infectious disease and neurology consults -continue her CellCept, which was started couple of days prior to transfer to [place] -We will also consult rheumatology team -PT and OT consults since she is still very weak on her feet, unable to fully ambulate. -Continue mechanical soft diet which patient appears to be tolerating now, follow-up further speech therapy recommendations #Possible? seizures: Again appeared to occur earlier this month at the [facility] in [facility]. As well, on her flight back to [place], patient possibly had seizure activity on the plane-EEG results reviewed from [facility] performed on August 10, 2018. EEG yesterday here is without ongoing epileptiform activity. -Follow-up recommendations from neurology team, on Trileptal now, Ativan as needed # GI ppx -H2 fernando Critical care time spent on patient care today equals 50 minutes. Result Diagram: 08/20/18 1730 08/22/18 0719 Results 24hrs Laboratory Tests Test 08/21/18 11:36 08/22/18 07:19 Iron Level 29 #L Total Iron Binding Capacity 223 L Percent Iron Saturation 13 L Phenytoin (Dilantin) Level < 3.0 L Ethyl Alcohol Level < 10.0 H Hepatitis B Surface Antigen NEGATIVE Hepatitis B Core Total Antibody NEGATIVE Hepatitis C Antibody NEGATIVE HIV (1&2) Antibody NEGATIVE Blood Urea Nitrogen 11 # Creatinine 0.65 Vancomycin Level Trough 25.5 *H Exam/Review of Systems Vital Signs Vitals Vital Signs Date Temp Pulse Resp B/P (MAP) Pulse Ox O2 O2 Flow FiO2 Time Delivery Rate 08/22/18 88 17 109/69 99 Room Air 06:00 (82) 08/22/18 98.4 04:00 Intake and Output 08/21/18 08/21/18 08/22/18 1515:00 23:00 07:00 IntakeIntake Total 1790 ml 1660 ml 1110 ml OutputOutput Total 735 ml 1125 ml 820 ml BalanceBalance 1055 ml 535 ml 290 ml Medications Medications Current Medications Dextrose/Sodium Chloride 1,000 ml @ 120 mls/hr Q8H20M IV Last administered on 08/22/18at 03:42; Admin Dose 120 MLS/HR; Start 08/20/18 at 21:28 Albuterol/ Ipratropium (Duoneb) 3 ml Q2H RESP THERAPY PRN NEB SHORTNESS OF BREATH; Start 08/20/18 at 21:30 Vancomycin HCl (Vanco Iv Per Pharmacy) VANCOMYCIN PER PHARMACY PER PROTOCOL XX ; Start 08/21/18 at 06:00 Acyclovir 500 mg/ Dextrose 100 ml @ 100 mls/hr Q8 IVPB Last administered on 08/22/18at 06:33; Admin Dose 100 MLS/HR; Start 08/21/18 at 06:00 Famotidine (Pepcid Iv) 20 mg DAILY IV Last administered on 08/22/18at 08:32; Admin Dose 20 MG; Start 08/22/18 at 09:00 Lorazepam (Ativan) 1 mg Q2H PRN IV SEIZURES Last administered on 08/22/18at 00:57; Admin Dose 1 MG; Start 08/21/18 at 11:30 Mycophenolate Mofetil (Cellcept) 250 mg BID PO Last administered on 08/22/18at 08:24; Admin Dose 250 MG; Start 08/21/18 at 21:00 Oxcarbazepine (Trileptal) 300 mg BID PO ; Start 08/22/18 at 09:00 Gentamicin Sulfate (Gentamicin Iv Per Pharmacy) GENTAMICIN PER PHARMACY NOTE XX ; Start 08/22/18 at 09:30; Status JAXON HONG Aug 22, 2018 09:17
[2018-08-22] MEDS ORDERED: GENTAMICIN IV PER PHARMACY XX SCH (09:30)
[2018-08-22] MEDS: OXCARBAZEPINE 300 MG TAB PO SCH ×2 (09:57→20:20)
[2018-08-22] MEDS: POTASSIUM CHLORIDE 50 ML IVPB SCH ×2 (09:57→12:08)
--- NOTE | 2018-08-22 10:40 | CONS ---
Date/Time of Note Date/Time of Note DATE: 08/22/18 TIME: 10:01 Assessment/Plan Assessment/Plan Hospital Course ID PROGRESS NOTE=> See Dr. 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 Thin liquids to be given via tsp only. * Urine Cx on admission (+)GNR-E.Coli = ESBL / BCx (-) * 08/20/18 CSF unremarkable GRAM STAIN Final POLYMORPH. LEUKOCYTE NONE SEEN, NO ORGANISMS SEEN * CSF CULTURE Preliminary NO GROWTH AFTER 1 DAY * (-)HIV/(-)HBV/(-)HCV serology * 08/20/18 INFLUENZA A & B BY EIA Final INFLU A&B BY EIA INFLUENZA A NEGATIVE (Ref Range Neg) INFLUENZA B NEGATIVE (Ref Range Neg) IMAGING * 08/21/18 PELVIC US: Unremarkable pelvic sonogram. * 08/20/18 CXR: IMPRESSION: No evidence for active cardiopulmonary disease. * 08/20/18 CT BRAIN: No acute intracranial abnormalities are identified. * 08/20/18 BRAIN MRI: IMPRESSION:1. No acute intracranial abnormality. No intracranial hemorrhage, enhancing mass lesion, infarction or hydrocephalous. 2. No abnormal gyral swelling or leptomeningeal enhancement to suggest encephalitis * 08/20/18: Venous US: Normal left lower extremity Doppler ultrasound. No evidence of DVT. MICRO * 08/20/18 (+) GNR UTI = E.coli/ESBL * URINE CULTURE Final Organism 1 ESCHERICHIA COLI (ESBL) COLONY COUNT >100,000 CFU/ml . MULTI DRUG RESISTANT ORGANISM E.COLI ESBL: ELVIS MEROPENEM 0.016 SUSCEPTIBLE ECOLI ESBL M.I.C. RX --------- --- AMPICILLIN >=32 R CEFAZOLIN R CEFEPIME >=64 R CEFOTAXIME R CIPROFLOXACIN >=4 R GENTAMICIN <=1 S LEVOFLOXACIN >=8 R NITROFURANTOIN <=16 S TOBRAMYCIN <=1 S TRIMETHOPRIM/SULFAMETHOXAZOLE >=320 R PIPERACILLIN/TAZOBACTAM 64 I PHYSICAL EXAMINATION: GENERAL: Afebrile, VSS, HEENT: AT, NC, anicteric NECK: Supple, trach midline CHEST: Equal chest rise bilaterally, without dyspnea on observation HEART: Pulse RRR ABDOMEN: Soft / NT EXTREMITIES: Warm, dry SKIN: No rash, no diaphoresis ID ASSESSMENT 22 yo F w/Lupus (SLE) on CellCept (noncompliant per notes) * s/p Hospitalization in [facility] 08/03/18 - 08/19/18 for AMS given diagnosis of "leptomeningitis" * (+)witnessed SZS activity during [facility] hospital admission * She was treated for concern PNA with Ceftriaxone after she traveled to [facility] and returned to [facility] with fevers. * Patient flew from [facility] to [facility] and presented to [facility] ED directly from [facility] after landing with: 1. 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 2. SLE * Per notes from [facility]:She had a positive Dilcia test with low C3 and C4 l evel that could be a result of her SLE flare-up. The informatics specialist started the patient on Solu-Medrol high-dose 1 g 3 days and then switch to p.o. form. The patient also had autoimmune panels which all came back negative. C3 and C4 level had been improving on the follow-up laboratory work. The informatics specialist started CellCept on August 17, 2018. She was deemed safe to travel to on 08/19/18. 3. Seizures-> Started on ant-SXS meds by Neuro * EEG is without ongoing epileptiform activity. 4. SIRS w/mild tachycardia, no fevers, low norm B/P 92/60, mildly increased Neuts%, and venous lactate 2.3 on admission. 5. 08/20/18 (+) GNR UTI = E.coli/ESBL * URINE CULTURE Final Organism 1 ESCHERICHIA COLI (ESBL) COLONY COUNT >100,000 CFU/ml E.COLI ESBL: ELVIS MEROPENEM 0.016 SUSCEPTIBLE ECOLI ESBL 5. s/p PNA * ? CAP while traveling to [facility] * ?ASP PNA -- she has NGT placed during hospitalization in [facility] 6. Dysphagia with risk to aspirate exacerbated by altered mentation and decreased endurance = Per Speech Tx Eval * SPEECH TX RECOMMENDATIONS: Recommend a mechanical-soft diet with ground meat. Thin liquids to be given via tsp only. (-)HIV/HBV/HCV screening (-)MRSA Nares screening ABX ALLERGIES: KNDA INVASIVES: PICC, FC CURRENT ABX: Day # => Vanco IV + GENT + Acyclovir s/p Cefepime ID RECOMMENDATIONS/PLAN: * Continue ASP PRECAUTIONS per Speech Tx recommendations * Continue current ABX until final CSF Cx returns (-) * DC IV ABX if/when final CSF Cx (-) and start MACROBID 100mg PO BID to complete 7 days for E.Coli ESBL . Result Diagram: 08/22/1871808/22/18718 Results 24hrs Laboratory Tests Test 08/21/18 11:36 08/22/18 07:00 08/22/18 07:19 Iron Level 29 #L Total Iron Binding Capacity 223 L Percent Iron Saturation 13 L Phenytoin (Dilantin) Level < 3.0 L Ethyl Alcohol Level < 10.0 H Hepatitis B Surface Antigen NEGATIVE Hepatitis B Core Total Antibody NEGATIVE Hepatitis C Antibody NEGATIVE HIV (1&2) Antibody NEGATIVE Sodium Level 139 Potassium Level 2.8 *L Chloride Level 107 Carbon Dioxide Level 27 Anion Gap 5 Glucose Level 114 # Calcium Level 7.7 L White Blood Count 5.6 # Red Blood Count 2.71 L Hemoglobin 8.0 L Hematocrit 25.5 L Mean Corpuscular Volume 94.1 Mean Corpuscular Hemoglobin 29.5 Mean Corpuscular Hemoglobin Concent 31.4 L Red Cell Distribution Width 14.7 H Platelet Count 273 # Mean Platelet Volume 9.7 Immature Granulocytes % 1.600 H Neutrophils % 64.7 Lymphocytes % 25.9 Monocytes % 7.4 Eosinophils % 0.2 Basophils % 0.2 Nucleated Red Blood Cells % 0.0 Immature Granulocytes # 0.090 H Neutrophils # 3.6 Lymphocytes # 1.4 Monocytes # 0.4 Eosinophils # 0.0 Basophils # 0.0 Nucleated Red Blood Cells # 0.0 Blood Urea Nitrogen 11 # Creatinine 0.65 Vancomycin Level Trough 25.5 *H Consultation Date/Type/Reason Admit Date/Time Aug 20, 2018 at 19:48 Initial Consult Date 08/21/18 Requesting Provider: JAXON FERNÁNDEZ Exam/Review of Systems Vital Signs Vitals Vital Signs Date Temp Pulse Resp B/P (MAP) Pulse Ox O2 O2 Flow FiO2 Time Delivery Rate 08/22/18 99 21 116/84 100 Room Air 09:00 (95) 08/22/18 98.8 08:00 Intake and Output 08/21/18 08/21/18 08/22/18 1515:00 23:00 07:00 IntakeIntake Total 1790 ml 1660 ml 1110 ml OutputOutput Total 735 ml 1125 ml 820 ml BalanceBalance 1055 ml 535 ml 290 ml Medications Medications Current Medications Dextrose/Sodium Chloride 1,000 ml @ 120 mls/hr Q8H20M IV Last administered on 08/22/18at 03:42; Admin Dose 120 MLS/HR; Start 08/20/18 at 21:28 Albuterol/ Ipratropium (Duoneb) 3 ml Q2H RESP THERAPY PRN NEB SHORTNESS OF BREATH; Start 08/20/18 at 21:30 Acyclovir 500 mg/ Dextrose 100 ml @ 100 mls/hr Q8 IVPB Last administered on 08/22/18at 06:33; Admin Dose 100 MLS/HR; Start 08/21/18 at 06:00 Famotidine (Pepcid Iv) 20 mg DAILY IV Last administered on 08/22/18at 08:32; Admin Dose 20 MG; Start 08/22/18 at 09:00 Lorazepam (Ativan) 1 mg Q2H PRN IV SEIZURES Last administered on 08/22/18at 00:57; Admin Dose 1 MG; Start 08/21/18 at 11:30 Mycophenolate Mofetil (Cellcept) 250 mg BID PO Last administered on 08/22/18at 08:24; Admin Dose 250 MG; Start 08/21/18 at 21:00 Oxcarbazepine (Trileptal) 300 mg BID PO ; Start 08/22/18 at 09:00 Gentamicin Sulfate (Gentamicin Iv Per Pharmacy) GENTAMICIN PER PHARMACY NOTE XX ; Start 08/22/18 at 09:30 Potassium Chloride 50 ml @ 25 mls/hr Q2H IVPB ; Start 08/22/18 at 10:00; Stop 08/22/18 at 17:59 Gentamicin Sulfate 260 mg/ Dextrose 106.5 ml @ 106.5 mls/ hr Q24H IVPB ; Start 08/22/18 at 12:00 TAM MARR NP Aug 22, 2018 10:11
--- NOTE | 2018-08-22 11:17 | NUR ---
Transfer to Tele (505): Detailed report given to receiving RN: Elo. Made aware patient's K+= 2.8 and Potassium 80mEq ordered (4 bags). Patient's neuro status: improved. Oriented x3. Patient's follow commands. Remains with generalized weakness. Vital signs stable. Seen by Dr. Medina this morning. Cleared patient from neuro standpoint. Seen by Dr. Allen in the morning and updated on patient's condition.All needs attended.
[2018-08-22] MEDS ORDERED: DEXTROSE 5% IVPB SCH (12:00)
[2018-08-22] MEDS ORDERED: GENTAMICIN IVPB SCH (12:00)
[2018-08-22] MEDS: predniSONE 20 MG TAB PO SCH (12:10)
--- NOTE | 2018-08-22 12:10 | CONS ---
DATE OF ADMISSION: 08/20/2018 DATE OF CONSULTATION: TYPE OF CONSULTATION: Rheumatology. HISTORY OF PRESENT ILLNESS: The patient is a 22-year-old [place] woman with history of sebastian pus, admitted with recent fever, seizures which developed during that trip to [facility]. The patient states that she was diagnosed with lupus about 3 years ago and has been on CellCept (unclear dose) an d prednisone (unclear dose). There is a question of noncompliance, although the patient states that she has been taking the medications regularly. She may have been feeling more fatigued than usual po ssibly prior to her trip to [facility] but she went there from the [facility] on 08/03/2018 and soon developed fevers and altered mental status and possible seizures. She was evaluated in [facility] and she had an extensive workup. Spinal fluid at that time showed 9 white cells and elevated protein at 165 and slow changes on EEG and placed on Keppra, although this led to agitation. She was diagnosed with leptomeningitis. She was treated with Solu-Medrol 1 gram boluses daily for 3 days and then wood ethan on oral steroids. C3 and C4 levels were low. Other autoimmune studies have been mostly negative . She was restarted on CellCept on 08/17/2018 and was brought to the [facility] with an NG tube i n place due to her altered mental status as well as accompanied by doctor and nurse and brought from the [facility] to this hospital. At this hospital, CT and MRI of the brain has been normal. CSF fluid eval uation was normal at this point. She was found to have a UTI with E. coli. She is being treated wit h multiple antibiotics and her mental status has markedly improved. At this point, she is somewhat l ethargic but oriented. She in the past had a history of a rash, possible arthritis, unclear of any renal disease and unclear why she was still on prednisone prior to this trip. At present, she denies arthralgias, denies rash. It is unclear if she has a history of Raynaud pheno mushtaq. She says that with cold fingers turn somewhat purple. She is denying headaches or new visual changes. She denies shortness of breath or chest pains. Denies abdominal pain. Rheumatologic revi ew of systems is otherwise unremarkable. PAST MEDICAL HISTORY: Positive for lupus as above. MEDICATIONS: See chart. ALLERGIES: NO KNOWN ALLERGIES. SOCIAL HISTORY: The patient is single, 0. She does not smoke or drink alcohol. FAMILY HISTORY: Noncontributory. PHYSICAL EXAMINATION: VITAL SIGNS: Afebrile, blood pressure 111/74, pulse rate 93, oxygen saturation 100 on room air. GENERAL: Well-developed, well-nourished woman appearing fatigued, but in no acute distress, al ert and oriented x3. SKIN: Without rashes or other lesions. HEENT: Without acute oral or ocular lesions noted. NECK: Without lymphadenopathy. CHEST: Clear to auscultation. HEART: Regular rate and rhythm without gallops or murmurs noted. ABDOMEN: Soft without mass or tenderness. MUSCULOSKELETAL: Joints with good range of motion without synovitis or tenderness. NEUROLOGIC: At present grossly intact. Chart was reviewed. ASSESSMENT: 1. Recent altered mental status and seizure disorder. Unclear if related to central nervous system lupus versus infectious etiology. 2. Systemic lupus erythematosus by history. Prior to her trip to [facility], she was apparently in no major distress and no evidence of active renal involvement; however, she was on CellCept and some pr ednisone. 3. Anemia with hematocrit around 25 unclear if it relates to the inflammatory process versus other. RECOMMENDATIONS: 1. At present, we will increase the CellCept to 500 mg twice a day. 2. She has been on steroids and we will add prednisone at 20 mg daily and probably rapidly taper. 3. Neurology and infectious disease evaluation in process. Thank you for having me see the patient rheumatologically. We will follow while in the hospital. Dictated By: BERTO VERNON MD CW/HUANG Conf#: [id number] DID#: [id number] CC: JAXON FERNÁNDEZ; JON BENITEZ MD; LALY MORATAYA MD;*End*
--- NOTE | 2018-08-22 12:28 | CONS ---
Date/Time of Note Date/Time of Note DATE: 08/22/18 TIME: 12:26 Consult Date/Type/Reason Admit Date/Time Aug 20, 2018 at 19:48 Initial Consult Date 08/21/18 Type of Consultation: Pulm/CCM Requesting Provider: JAXON FERNÁNDEZ Subjective No events. s/p EEG. Mental status appears improved today. Objective Vital Signs Date Temp Pulse Resp B/P (MAP) Pulse Ox O2 O2 Flow FiO2 Time Delivery Rate 08/22/18 96 14 111/79 100 Room Air 11:00 (90) 08/22/18 98.8 08:00 Intake and Output 08/21/18 08/21/18 08/22/18 1515:00 23:00 07:00 IntakeIntake Total 1790 ml 1660 ml 1110 ml OutputOutput Total 735 ml 1125 ml 945 ml BalanceBalance 1055 ml 535 ml 165 ml Exam HEENT: Neck supple; no JVD; no LAD CVS: RRR, S1 and S2 CHEST: Clear ABD: Soft, NT, + BS EXT: No c/c/e NEURO: A&O x 2. Moves all extremities. NL tone. DTRs symmetrical Results/Medications Result Diagram: 08/22/18 1017 08/22/18 0719 Results 24 hrs Laboratory Tests Test 08/22/18 07:00 08/22/18 07:19 08/22/18 10:17 Sodium Level 139 Potassium Level 2.8 *L Chloride Level 107 Carbon Dioxide Level 27 Anion Gap 5 Glucose Level 114 # Calcium Level 7.7 L White Blood Count 5.6 # Red Blood Count 2.71 L Hemoglobin 8.0 L 8.6 L Hematocrit 25.5 L 27.2 L Mean Corpuscular Volume 94.1 Mean Corpuscular Hemoglobin 29.5 Mean Corpuscular Hemoglobin Concent 31.4 L Red Cell Distribution Width 14.7 H Platelet Count 273 # Mean Platelet Volume 9.7 Immature Granulocytes % 1.600 H Neutrophils % 64.7 Lymphocytes % 25.9 Monocytes % 7.4 Eosinophils % 0.2 Basophils % 0.2 Nucleated Red Blood Cells % 0.0 Immature Granulocytes # 0.090 H Neutrophils # 3.6 Lymphocytes # 1.4 Monocytes # 0.4 Eosinophils # 0.0 Basophils # 0.0 Nucleated Red Blood Cells # 0.0 Blood Urea Nitrogen 11 # Creatinine 0.65 Vancomycin Level Trough 25.5 *H Medications Current Medications Dextrose/Sodium Chloride 1,000 ml @ 120 mls/hr Q8H20M IV Last administered on 08/22/18at 12:04; Admin Dose 120 MLS/HR; Start 08/20/18 at 21:28 Albuterol/ Ipratropium (Duoneb) 3 ml Q2H RESP THERAPY PRN NEB SHORTNESS OF BREATH; Start 08/20/18 at 21:30 Acyclovir 500 mg/ Dextrose 100 ml @ 100 mls/hr Q8 IVPB Last administered on 08/22/18at 06:33; Admin Dose 100 MLS/HR; Start 08/21/18 at 06:00 Famotidine (Pepcid Iv) 20 mg DAILY IV Last administered on 08/22/18at 08:32; Admin Dose 20 MG; Start 08/22/18 at 09:00 Lorazepam (Ativan) 1 mg Q2H PRN IV SEIZURES Last administered on 08/22/18at 00:57; Admin Dose 1 MG; Start 08/21/18 at 11:30 Oxcarbazepine (Trileptal) 300 mg BID PO Last administered on 08/22/18at 09:57; Admin Dose 300 MG; Start 08/22/18 at 09:00 Gentamicin Sulfate (Gentamicin Iv Per Pharmacy) GENTAMICIN PER PHARMACY NOTE XX ; Start 08/22/18 at 09:30 Potassium Chloride 50 ml @ 25 mls/hr Q2H IVPB Last administered on 08/22/18at 12:08; Admin Dose 25 MLS/HR; Start 08/22/18 at 10:00; Stop 08/22/18 at 17:59 Gentamicin Sulfate 260 mg/ Dextrose 106.5 ml @ 106.5 mls/ hr Q24H IVPB Last administered on 08/22/18at 12:06; Admin Dose 106.5 MLS/HR; Start 08/22/18 at 12:00 Prednisone (Prednisone) 20 mg DAILY PO Last administered on 08/22/18at 12:10; A dmin Dose 20 MG; Start 08/22/18 at 12:00 Mycophenolate Mofetil (Cellcept) 500 mg BID PO ; Start 08/22/18 at 21:00 Assessment/Plan Additional Assessment/Plan IMP: 1. Meningoencephalitis--etiology unclear. In view of extensive negative work-up, considerations include autoimmune (limbic associated with SLE or anti-NMDA) vs paraneoplastic encephalitis vs. ADEM (acute disseminated encephalomyelitis) RECS: 1. F/U CSF for autoimmune and paraneoplastic panels (send out labs). 2. 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 Anti-epileptic Rx as per Neuro 4. Continue prednisone and cellcept 5. If condition deteriorates, would consider pulse dose CS and IV ig 6. Stable for transfer to telemetry 35 min cc time DRAGAN BOLANOS MD Aug 22, 2018 12:28
--- NOTE | 2018-08-22 12:30 | NUR ---
Patient arrived in room 505. Patient remains stable. No s/s of distress. Connected patient to the tele monitor box. KNITTER WIRE MESH in the room. Receiving RN not availlable. seals engraver: Ronny in the station and made aware patient arrived.
[2018-08-22] MEDS ORDERED: POTASSIUM CHLORIDE 100 ML IVPB SCH (14:00)
[2018-08-22] MEDS ORDERED: VANCOMYCIN 1 GM 250 ML IVPB SCH (14:00)
--- NOTE | 2018-08-22 14:21 | NUR ---
Gentamicin per Rx 22 year old female 5' 3" 57.5 kg NKA - [place] body weight = 52.4 kg CC: ESBL E.coli urine culture WBC 5.6 BUN/Scr 11/0.65 A/P: Start Gentamicin 260 mg IVPB q24h (5 mg/kg based on ideal body weight, extended interval protocol). Check random level 10 hours post dose. Pharmacy to follow.
[2018-08-22] MEDS ORDERED: POTASSIUM CHLORIDE (SR) 20 MEQ TAB PO STA (15:35)
--- NOTE | 2018-08-22 18:21 | NUR ---
EOSS: Received pt from ICU. Pt is AAOx3, forgetful at times. SR on the monitor. VSS. No s/s of acute distress. Contact isolation precautions initiated for ESBL urine. Skin checked w/ secondary RN, WOCN placed, low air loss mattress ordered. Family at bedside. RN educated on purpose and importance of isolation precautions. Repositioned q2h. Bedrest, very weak, unable to ambulate. Hourly rounding done, fall precautions initiated, all needs attended to. Pt is stable - will endorse to oncoming shift.
[2018-08-23] VITALS (11 sets, daily range): BP systolic 97–117; BP diastolic 54–71; PULSE 68–105; RESP 17–18
[2018-08-23] MEDS: ACYCLOVIR 500 MG in DEXTROSE 5% 100 ML IVPB SCH (06:07)
--- NOTE | 2018-08-23 06:50 | NUR ---
NURSE'S NOTES: Pt resting comfortably with stable VS and cardiac surgeon showing AV=408. Denies any discomfort. IVF infusing well. IVATB ongoing with no adverse effects noted. Isolation precaution strictly observed secondary to medical condition. Kept clean and comfortable. Instructed on TCDB; assisted in turning to position of comfort. Call light in reach. Bed alarm on. Family at bedside. All needs anticipated and attended promptly.
--- NOTE | 2018-08-23 09:10 | NUR ---
PT Evaluation note: S: HPI per MD note: 22-year-old female with a history of lupus on CellCept, reportedly noncompliant who have been hospitalized [facility] in [facility] between August 03 and for altered mentation. Patient presented to [facility]X a few hours prior to arrival to our ER. She was transported to [facility] per her PMD Dr. Bradshaw recommendation since patient is capitated here O: MD order received for PT consult. Pt oriented x 4, mother in the room, both agreeable to participate with PT evaluation, cleared by RN in charge Xuan to proceed. no c/o pain from patient. PREC: HIGH fall risk, seizures prec. PLOF: Patient was independent with ADL and ambulatory without AD, works in a shop. lives with mother in a shared room, single story house, no entry steps. Pt doesn't own any AD. CLOF: Patient needed mod/max with supine <--> sit EOB with HOB partially elevated, fair minus static sitting balance, mod assist sit/stand and side stepping along bed side handheld. Shaky legs but no knee buckling. followed commands, no SOB with activities. Assisted BTB with HOB elevated as mother assisting patient with meal. A: Recommend ARU placement. P: COnt PT and progress as able. To be seen once a day, 5x/wk, 2 wk or until goals met or LOS.
[2018-08-23] MEDS: DEXTROSE 5%-0.45% NACL 1,000 ML IV SCH ×2 (09:11→16:08)
[2018-08-23] MEDS: MYCOPHENOLATE 250 MG CAP PO SCH ×2 (09:11→20:02)
[2018-08-23] MEDS: OXCARBAZEPINE 300 MG TAB PO SCH ×2 (09:12→20:02)
[2018-08-23] MEDS: predniSONE 20 MG TAB PO SCH (09:12)
[2018-08-23] MEDS: FAMOTIDINE 20 MG INJ IV SCH (10:24)
--- NOTE | 2018-08-23 10:29 | NUR ---
WOUND CONSULT: 22 year old female admitted with viral meningitis and pneumonia per record. History of lupus on Cellcept per medical history. Patient awake, alert, oriented. She is able to turn without assist. ASSESSMENT/RECOMMENDATIONS: - Left inner buttock diffuse pinkish discoloration. Admission photo documentation shows redness to the same area. Recommended to protect area with foam border dressing. Change every 3 days. Assess skin under dressing every shift. Discussed assessment and plan of care with RNXuan. Carlota Arredondo, BSN RN CWOCN
[2018-08-23] MEDS ORDERED: POTASSIUM CHLORIDE 20 MEQ POWDER FOR ORAL SOLN PO ONE (10:30)
--- NOTE | 2018-08-23 11:51 | CONS ---
Date/Time of Note Date/Time of Note DATE: 08/23/18 TIME: 11:46 Assessment/Plan Assessment/Plan Hospital Course ID PROGRESS NOTE CURRENT ABX: DAY # => Vanco IV + GENT + Acyclovir s/p Cefepime 24H INTERVAL SUMMARY * Much improved A/A/O w/fatigue and lethargy. Afebrile, WBC down = SIRS RESOLVED * (+) Dysphagia with risk to aspirate exacerbated by altered mentation and decreased endurance = Per Speech Tx Eval * SPEECH TX RECOMMENDATIONS: Recommend a mechanical-soft diet with ground meat. Thin liquids to be given via tsp only. * Urine Cx on admission (+)GNR-E.Coli = ESBL / BCx (-) * 08/20/18 CSF (-)HSV I & II * CSF unremarkable GRAM STAIN Final POLYMORPH. LEUKOCYTE NONE SEEN, NO ORGANISMS SEEN * CSF CULTURE Preliminary NO GROWTH AFTER 1 DAY * (-)HIV/(-)HBV/(-)HCV serology * 08/20/18 INFLUENZA A & B BY EIA Final INFLU A&B BY EIA INFLUENZA A NEGATIVE (Ref Range Neg) INFLUENZA B NEGATIVE (Ref Range Neg) IMAGING * 08/21/18 PELVIC US: Unremarkable pelvic sonogram. * 08/20/18 CXR: IMPRESSION: No evidence for active cardiopulmonary disease. * 08/20/18 CT BRAIN: No acute intracranial abnormalities are identified. * 08/20/18 BRAIN MRI: IMPRESSION:1. No acute intracranial abnormality. No intracranial hemorrhage, enhancing mass lesion, infarction or hydrocephalous. 2. No abnormal gyral swelling or leptomeningeal enhancement to suggest encephalitis * 08/20/18: Venous US: Normal left lower extremity Doppler ultrasound. No evidence of DVT. MICRO * 08/20/18 (+) GNR UTI = E.coli/ESBL * URINE CULTURE Final Organism 1 ESCHERICHIA COLI (ESBL) COLONY COUNT >100,000 CFU/ml . MULTI DRUG RESISTANT ORGANISM E.COLI ESBL: ELVIS MEROPENEM 0.016 SUSCEPTIBLE ECOLI ESBL M.I.C. RX --------- --- AMPICILLIN >=32 R CEFAZOLIN R CEFEPIME >=64 R CEFOTAXIME R CIPROFLOXACIN >=4 R GENTAMICIN <=1 S LEVOFLOXACIN >=8 R NITROFURANTOIN <=16 S TOBRAMYCIN <=1 S TRIMETHOPRIM/SULFAMETHOXAZOLE >=320 R PIPERACILLIN/TAZOBACTAM 64 I PHYSICAL EXAMINATION: GENERAL: Afebrile, VSS, HEENT: AT, NC, anicteric NECK: Supple, trach midline CHEST: Equal chest rise bilaterally, without dyspnea on observation HEART: Pulse RRR ABDOMEN: Soft / NT EXTREMITIES: Warm, dry SKIN: No rash, no diaphoresis ID ASSESSMENT 22 yo F w/Lupus (SLE) on CellCept (noncompliant per notes) * s/p Hospitalization in [facility] 08/03/18 - 08/19/18 for AMS given diagnosis of "leptomeningitis" * (+)witnessed SZS activity during [facility] hospital admission * She was treated for concern PNA with Ceftriaxone after she traveled to [facility] and returned to [facility] with fevers. * Patient flew from [facility] to [facility] and presented to [facility] directly from [facility] after landing with: 1. 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 2. SLE * Per notes from [facility]:She had a positive Dilcia test with low C3 and C4 level that could be a result of her SLE flare-up. The tax expert started the patient on Solu-Medrol high-dose 1 g 3 days and then switch to p.o. form. The patient also had autoimmune panels which all came back negative. C3 and C4 level had been improving on the follow-up laboratory work. The tax expert started CellCept on August 17, 2018. She was deemed safe to travel to on 08/19/18. 3. Seizures-> Started on ant-SXS meds by Neuro * EEG is without ongoing epileptiform activity. 4. SIRS w/mild tachycardia, no fevers, low norm B/P 92/60, mildly increased Neuts%, and venous lactate 2.3 on admission. 5. 08/20/18 (+) GNR UTI = E.coli/ESBL * URINE CULTURE Final Organism 1 ESCHERICHIA COLI (ESBL) COLONY COUNT >100,000 CFU/ml 5. s/p PNA * ? CAP while traveling to [facility] * ?ASP PNA -- she has NGT placed during hospitalization in [facility] 6. Dysphagia with risk to aspirate exacerbated by altered mentation and decreased endurance = Per Speech Tx Eval * SPEECH TX RECOMMENDATIONS: Recommend a mechanical-soft diet with ground meat. Thin liquids to be given via tsp only. (-)HIV/HBV/HCV screening (-)MRSA Nares screening ABX ALLERGIES: KNDA INVASIVES: PICC, FC CURRENT ABX: Day # => Vanco IV + GENT + Acyclovir s/p Cefepime ID RECOMMENDATIONS/PLAN: 1. Taking PO's -- Continue ASP PRECAUTIONS per Speech Tx recommendations 2. ABX RECOMMENDATIONS AND DC PLANNING -- MAY DC ON PO ABX as below when cleared by primary MD * TELEPHONE PHARMACY ORDER FROM DR. BENITEZ WRITTEN TO PHARMACY TODAY Please 1. DC Vanco IV 2. DC GENT IV 3. DC Acyclovir IV 4. 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 Appreciate your help. Dr. Benitez will sign telephone orders. . Result Diagram: 08/23/18 0537 08/23/18 0537 Results 24hrs Laboratory Tests Test 08/22/18 22:05 08/23/18 05:37 Random Gentamicin Level 1.9 White Blood Count 7.6 # Red Blood Count 3.01 L Hemoglobin 8.7 L Hematocrit 27.5 L Mean Corpuscular Volume 91.4 Mean Corpuscular Hemoglobin 28.9 L Mean Corpuscular Hemoglobin Concent 31.6 L Red Cell Distribution Width 15.0 H Platelet Count 270 Mean Platelet Volume 9.9 Immature Granulocytes % 1.200 H Neutrophils % 69.6 Lymphocytes % 23.5 Monocytes % 5.6 Eosinophils % 0.1 Basophils % 0.0 Nucleated Red Blood Cells % 0.0 Immature Granulocytes # 0.090 H Neutrophils # 5.3 Lymphocytes # 1.8 Monocytes # 0.4 Eosinophils # 0.0 Basophils # 0.0 Nucleated Red Blood Cells # 0.0 Sodium Level 139 Potassium Level 3.3 L Chloride Level 106 Carbon Dioxide Level 30 Anion Gap 3 L Blood Urea Nitrogen 8 Creatinine 0.52 Est Glomerular Filtrat Rate mL/min > 60 Glucose Level 93 Calcium Level 8.3 L Phosphorus Level 4.1 Magnesium Level 2.0 Consultation Date/Type/Reason Admit Date/Time Aug 20, 2018 at 19:48 Initial Consult Date 08/21/18 Requesting Provider: JAXON FERNÁNDEZ Exam/Review of Systems Vital Signs Vitals Vital Signs Date Temp Pulse Resp B/P (MAP) Pulse Ox O2 O2 Flow FiO2 Time Delivery Rate 08/23/18 97.9 72 18 97/55 (69) 100 11:45 08/23/18 Room Air 08:12 Intake and Output 08/22/18 08/22/18 08/23/18 1414:59 22:59 06:59 IntakeIntake Total 1010 ml 910 ml 1100 ml OutputOutput Total 450 ml 1800 ml 2000 ml BalanceBalance 560 ml -890 ml -900 ml Medications Medications Current Medications Dextrose/Sodium Chloride 1,000 ml @ 120 mls/hr Q8H20M IV Last administered on 08/23/18at 09:11; Admin Dose 120 MLS/HR; Start 08/20/18 at 21:28 Albuterol/ Ipratropium (Duoneb) 3 ml Q2H RESP THERAPY PRN NEB SHORTNESS OF BREATH; Start 08/20/18 at 21:30 Acyclovir 500 mg/ Dextrose 100 ml @ 100 mls/hr Q8 IVPB Last administered on 08/23/18at 06:07; Admin Dose 100 MLS/HR; Start 08/21/18 at 06:00 Famotidine (Pepcid Iv) 20 mg DAILY IV Last administered on 08/23/18at 10:24; Admin Dose 20 MG; Start 08/22/18 at 09:00 Lorazepam (Ativan) 1 mg Q2H PRN IV SEIZURES Last administered on 08/22/18at 00:57; Admin Dose 1 MG; Start 08/21/18 at 11:30 Oxcarbazepine (Trileptal) 300 mg BID PO Last administered on 08/23/18at 09:12; Admin Dose 300 MG; Start 08/22/18 at 09:00 Gentamicin Sulfate (Gentamicin Iv Per Pharmacy) GENTAMICIN PER PHARMACY NOTE XX ; Start 08/22/18 at 09:30 Gentamicin Sulfate 260 mg/ Dextrose 106.5 ml @ 106.5 mls/ hr Q24H IVPB Last administered on 08/22/18at 12:06; Admin Dose 106.5 MLS/HR; Start 08/22/18 at 12:00 Prednisone (Prednisone) 20 mg DAILY PO Last administered on 08/23/18at 09:12; Admin Dose 20 MG; Start 08/22/18 at 12:00 Mycophenolate Mofetil (Cellcept) 500 mg BID PO Last administered on 08/23/18at 09:11; Admin Dose 500 MG; Start 08/22/18 at 21:00 TAM MARR NP Aug 23, 2018 11:51
--- NOTE | 2018-08-23 11:58 | NUR ---
RX NOTE RE: GENT DAY #1 GENT PER RX BUN/SCR: 8/0.52 WBC: 7.6 TMAX: 98.2 ALLERGIES: NKDA OTHER ABX: ACYCLOVIR GENT RANDOM: 1.9 CONTINUE GENTAMICIN 260MG IV Q24HR PHARMACY TO FOLLOW.
--- NOTE | 2018-08-23 12:04 | CONS ---
Date/Time of Note Date/Time of Note DATE: 08/23/18 TIME: 12:03 Consult Date/Type/Reason Admit Date/Time Aug 20, 2018 at 19:48 Initial Consult Date 08/21/18 Type of Consultation: Pulm/CCM Requesting Provider: JAXNO FERNÁNDEZ Patient sleeping this morning. According to family she did not sleep well overnight. No respiratory distress. Objective Vital Signs Date Temp Pulse Resp B/P (MAP) Pulse Ox O2 O2 Flow FiO2 Time Delivery Rate 08/23/18 97.9 72 18 97/55 (69) 100 11:45 08/23/18 Room Air 08:12 Intake and Output 08/22/18 08/22/18 08/23/18 1515:00 23:00 07:00 IntakeIntake Total 1010 ml 910 ml 1100 ml OutputOutput Total 325 ml 1800 ml 2000 ml BalanceBalance 685 ml -890 ml -900 ml Exam GENERAL: Well-nourished well-developed lady comfortable at rest VITAL SIGNS: per chart NECK: Supple. No JVD or lymphadenopathy. CARDIAC EXAM: S1, S2. No added sounds or murmurs. CHEST: clear bilaterally, No added sounds, rales or wheezes ABDOMEN: Soft, nontender. No guarding or rebound. EXTREMITIES: No cyanosis, clubbing or edema. NEUROLOGIC: Generalized weakness. No focal deficits. Results/Medications Result Diagram: 08/23/18 0537 08/23/18 0537 Results 24 hrs Laboratory Tests Test 08/22/18 22:05 08/23/18 05:37 Random Gentamicin Level 1.9 White Blood Count 7.6 # Red Blood Count 3.01 L Hemoglobin 8.7 L Hematocrit 27.5 L Mean Corpuscular Volume 91.4 Mean Corpuscular Hemoglobin 28.9 L Mean Corpuscular Hemoglobin Concent 31.6 L Red Cell Distribution Width 15.0 H Platelet Count 270 Mean Platelet Volume 9.9 Immature Granulocytes % 1.200 H Neutrophils % 69.6 Lymphocytes % 23.5 Monocytes % 5.6 Eosinophils % 0.1 Basophils % 0.0 Nucleated Red Blood Cells % 0.0 Immature Granulocytes # 0.090 H Neutrophils # 5.3 Lymphocytes # 1.8 Monocytes # 0.4 Eosinophils # 0.0 Basophils # 0.0 Nucleated Red Blood Cells # 0.0 Sodium Level 139 Potassium Level 3.3 L Chloride Level 106 Carbon Dioxide Level 30 Anion Gap 3 L Blood Urea Nitrogen 8 Creatinine 0.52 Est Glomerular Filtrat Rate mL/min > 60 Glucose Level 93 Calcium Level 8.3 L Phosphorus Level 4.1 Magnesium Level 2.0 Medications Current Medications Dextrose/Sodium Chloride 1,000 ml @ 120 mls/hr Q8H20M IV Last administered on 08/23/18at 09:11; Admin Dose 120 MLS/HR; Start 08/20/18 at 21:28 Albuterol/ Ipratropium (Duoneb) 3 ml Q2H RESP THERAPY PRN NEB SHORTNESS OF BREATH; Start 08/20/18 at 21:30 Acyclovir 500 mg/ Dextrose 100 ml @ 100 mls/hr Q8 IVPB Last administered on 08/23/18at 06:07; Admin Dose 100 MLS/HR; Start 08/21/18 at 06:00 Famotidine (Pepcid Iv) 20 mg DAILY IV Last administered on 08/23/18at 10:24; Admin Dose 20 MG; Start 08/22/18 at 09:00 Lorazepam (Ativan) 1 mg Q2H PRN IV SEIZURES Last administered on 08/22/18at 00:57; Admin Dose 1 MG; Start 08/21/18 at 11:30 Oxcarbazepine (Trileptal) 300 mg BID PO Last administered on 08/23/18at 09:12; Admin Dose 300 MG; Start 08/22/18 at 09:00 Gentamicin Sulfate (Gentamicin Iv Per Pharmacy) GENTAMICIN PER PHARMACY NOTE XX ; Start 08/22/18 at 09:30 Gentamicin Sulfate 260 mg/ Dextrose 106.5 ml @ 106.5 mls/ hr Q24H IVPB Last administered on 08/22/18at 12:06; Admin Dose 106.5 MLS/HR; Start 08/22/18 at 12:00 Prednisone (Prednisone) 20 mg DAILY PO Last administered on 08/23/18at 09:12; Admin Dose 20 MG; Start 08/22/18 at 12:00 Mycophenolate Mofetil (Cellcept) 500 mg BID PO Last administered on 08/23/18at 09:11; Admin Dose 500 MG; Start 08/22/18 at 21:00 Miscellaneous Information (* Miscellaneous Pharmacy Order) 1 ea BID XX ; Start 08/23/18 at 21:00; Status UNV Miscellaneous Information (*Rx Drug Level Order Reminder*) GENTAMICIN TROUGH @ 1,100 ONCE ONCE XX ; Start 08/24/18 at 11:00; Stop 08/24/18 at 11:01 Assessment/Plan Chief Complaint/Hosp Course Assessment 1. Meningoencephalitis--etiology unclear. In view of extensive negative work-up, considerations include autoimmune (limbic associated with SLE or anti-NMDA) vs paraneoplastic encephalitis vs. ADEM (acute disseminated encephalomyelitis) RECS: 1. F/U CSF for autoimmune and paraneoplastic panels (send out labs). 2. 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 Anti-epileptic Rx as per Neuro 4. Continue prednisone and cellcept 5. If condition deteriorates, would consider pulse dose CS and IV ig Neuro and rheumatology recommendations. We will follow as needed. SALVADOR CARMONA MD, [facility] Aug 23, 2018 12:04
--- NOTE | 2018-08-23 13:28 | CONS ---
Date/Time of Note Date/Time of Note DATE: 08/23/18 TIME: 13:24 Consult Date/Type/Reason Admit Date/Time Aug 20, 2018 at 19:48 Initial Consult Date 08/21/18 Type of Consultation: Rheum Requesting Provider: JAXON FERNÁNDEZ Subjective Feels better. Denies headache or other pain. Somewhat confused about how much prednisone or Cellcept was taking in past. Objective Vital Signs Date Temp Pulse Resp B/P (MAP) Pulse Ox O2 O2 Flow FiO2 Time Delivery Rate 08/23/18 73 12:07 08/23/18 97.9 18 97/55 (69) 100 11:45 08/23/18 Room Air 08:12 Intake and Output 08/22/18 08/22/18 08/23/18 1515:00 23:00 07:00 IntakeIntake Total 1010 ml 910 ml 1100 ml OutputOutput Total 325 ml 1800 ml 2000 ml BalanceBalance 685 ml -890 ml -900 ml Exam GENERAL: No acute distress, alert and oriented x3, but some confusion. SKIN: Without rashes or other lesions. HEENT: Without acute oral or ocular lesions noted. NECK: Without lymphadenopathy. CHEST: Clear to auscultation. HEART: Regular rate and rhythm without gallops or murmurs noted. ABDOMEN: Soft without mass or tenderness. MUSCULOSKELETAL: Joints with good range of motion without synovitis or tenderness. NEUROLOGIC: At present grossly intact Results/Medications Result Diagram: 08/23/18 0537 08/23/18 0537 Results 24 hrs Laboratory Tests Test 08/22/18 22:05 08/23/18 05:37 Random Gentamicin Level 1.9 White Blood Count 7.6 # Red Blood Count 3.01 L Hemoglobin 8.7 L Hematocrit 27.5 L Mean Corpuscular Volume 91.4 Mean Corpuscular Hemoglobin 28.9 L Mean Corpuscular Hemoglobin Concent 31.6 L Red Cell Distribution Width 15.0 H Platelet Count 270 Mean Platelet Volume 9.9 Immature Granulocytes % 1.200 H Neutrophils % 69.6 Lymphocytes % 23.5 Monocytes % 5.6 Eosinophils % 0.1 Basophils % 0.0 Nucleated Red Blood Cells % 0.0 Immature Granulocytes # 0.090 H Neutrophils # 5.3 Lymphocytes # 1.8 Monocytes # 0.4 Eosinophils # 0.0 Basophils # 0.0 Nucleated Red Blood Cells # 0.0 Sodium Level 139 Potassium Level 3.3 L Chloride Level 106 Carbon Dioxide Level 30 Anion Gap 3 L Blood Urea Nitrogen 8 Creatinine 0.52 Est Glomerular Filtrat Rate mL/min > 60 Glucose Level 93 Calcium Level 8.3 L Phosphorus Level 4.1 Magnesium Level 2.0 Medications Current Medications Dextrose/Sodium Chloride 1,000 ml @ 120 mls/hr Q8H20M IV Last administered on 08/23/18 09:11; Admin Dose 120 MLS/HR; Start 08/20/18 at 21:28 Albuterol/ Ipratropium (Duoneb) 3 ml Q2H RESP THERAPY PRN NEB SHORTNESS OF BREATH; Start 08/20/18 at 21:30 Famotidine (Pepcid Iv) 20 mg DAILY IV Last administered on 08/23/18at 10:24; Admin Dose 20 MG; Start 08/22/18 at 09:00 Lorazepam (Ativan) 1 mg Q2H PRN IV SEIZURES Last administered on 08/22/18at 00:57; Admin Dose 1 MG; Start 08/21/18 at 11:30 Oxcarbazepine (Trileptal) 300 mg BID PO Last administered on 08/23/18 09:12; Admin Dose 300 MG; Start 08/22/18 at 09:00 Prednisone (Prednisone) 20 mg DAILY PO Last administered on 08/23/18 09:12; Admin Dose 20 MG; Start 08/22/18 at 12:00 Mycophenolate Mofetil (Cellcept) 500 mg BID PO Last administered on 08/23/18at 09:11; Admin Dose 500 MG; Start 08/22/18 at 21:00 Nitrofurantoin Macrocrystals (Macrobid) 100 mg BID PO ; Start 08/23/18 at 21:00; Stop 08/30/18 at 09:01 Assessment/Plan Chief Complaint/Hosp Course ASSESSMENT: 1. Recent altered mental status and seizure disorder. Unclear if related to central nervous system lupus versus infectious etiology. 2. Systemic lupus erythematosus by history. Prior to her trip to [facility], she was apparently in no major distress and no evidence of active renal involvement; however, she was on CellCept and some prednisone. 3. Anemia with hematocrit around 25 unclear if it relates to the inflammatory process versus other. RECOMMENDATIONS: 1. Continue CellCept 500 mg twice a day. 2. Continue Prednisone 20 mg daily. 3. Neurology and infectious disease evaluation in process. BERTO VERNON MD Aug 23, 2018 13:28
--- NOTE | 2018-08-23 16:40 | CONS ---
Assessment/Plan Assessment/Plan Hospital Course 22 F c/ reported Hx of SLE on immunomodulatory Tx...who is admitted [facility] ICU for evaluation and management of ams following recent seizures.. Notably, she recently traveled to [facility], where she developed a febrile illness that was thought consistent w/ pneumonia.. There was perhaps a superimposed aseptic meningitis in that context... MRI brain w/ and w/o contrast is unremarkable Repeat CSF evaluation is now unremarkable.. EEG is without ongoing epileptiform activity.. P: Continue Trileptal in the short term (~3 months) given report of repeated clinical seizures prior to this presentation.. Reorient as necessary Limit sedating medications where possible PT/OT as necessary Other management per primary She cannot drive... Will follow Result Diagram: 08/23/1837 08/23/18 0537 Results 24hrs Laboratory Tests Test 08/22/18 22:05 08/23/18 05:37 Random Gentamicin Level 1.9 White Blood Count 7.6 # Red Blood Count 3.01 L Hemoglobin 8.7 L Hematocrit 27.5 L Mean Corpuscular Volume 91.4 Mean Corpuscular Hemoglobin 28.9 L Mean Corpuscular Hemoglobin Concent 31.6 L Red Cell Distribution Width 15.0 H Platelet Count 270 Mean Platelet Volume 9.9 Immature Granulocytes % 1.200 H Neutrophils % 69.6 Lymphocytes % 23.5 Monocytes % 5.6 Eosinophils % 0.1 Basophils % 0.0 Nucleated Red Blood Cells % 0.0 Immature Granulocytes # 0.090 H Neutrophils # 5.3 Lymphocytes # 1.8 Monocytes # 0.4 Eosinophils # 0.0 Basophils # 0.0 Nucleated Red Blood Cells # 0.0 Sodium Level 139 Potassium Level 3.3 L Chloride Level 106 Carbon Dioxide Level 30 Anion Gap 3 L Blood Urea Nitrogen 8 Creatinine 0.52 Est Glomerular Filtrat Rate mL/min > 60 Glucose Level 93 Calcium Level 8.3 L Phosphorus Level 4.1 Magnesium Level 2.0 Consultation Date/Type/Reason Admit Date/Time Aug 20, 2018 at 19:48 Type of Consult Neurology Requesting Provider: JAXON FERNÁNDEZ Date/Time of Note DATE: 08/23/18 TIME: 16:40 24 HR Interval Summary Free Text/Dictation Continues telemetry monitoring. No acute events or seizures reported today. Pt states that she did not sleep well last night. Exam Vital Signs Vitals Vital Signs Date Temp Pulse Resp B/P (MAP) Pulse Ox O2 O2 Flow FiO2 Time Delivery Rate 08/23/18 93 16:00 08/23/18 97.9 18 97/55 (69) 100 11:45 08/23/18 Room Air 08:12 Intake and Output 08/22/18 08/22/18 08/23/18 1515:00 23:00 07:00 IntakeIntake Total 1010 ml 910 ml 1100 ml OutputOutput Total 325 ml 1800 ml 2000 ml BalanceBalance 685 ml -890 ml -900 ml Exam PE: Gen Appearance: No Apparent Distress HEENT: Normocephalic Cardiovascular: Regular rate Lungs: Clear bilaterally Abdomen: Soft Extremities: Dry NE: The patient was asleep though easily arousable to voice; oriented to self, month, place, and situation. Language was normal. Fund of knowledge was somewhat limited. Pupils were equal and reactive to light. There was no afferent pupillary defect. Visual severino were normal. Funduscopic examination was limited. Extra-ocular movements were full. Ptosis was absent. There was no nystagmus. Facial sensation was normal. Face was symmetric with normal strength. Hearing was intact. Palate movements were normal. Neck strength was normal. There was normal tongue bulk and speed of movement. Tone was normal. Muscle bulk was normal. I did not see fasciculations. Arms and legs were mildly weak, symmetric.. Vibration sensation was normal. Temperature and pinprick sensation was normal. Rapid alternating movements were normal. There was no dysmetria. There was no intention tremor. Gait was deferred due to bedrest. Arm and leg reflexes were 2+ and symmetric. Chatman's sign was absent. Plantar responses were flexor. IRVIN MEEK NP Aug 23, 2018 16:40
--- NOTE | 2018-08-23 17:15 | PN ---
Date/Time of Note Date/Time of Note DATE: 08/23/18 TIME: 17:08 Assessment/Plan VTE Prophylaxis Risk score (from Nsg)>0 risk: 1 SCD applied (from Nsg): Yes Pharmacological prophylaxis: NA/contraindicated Pharm contraindication: low risk/ambulating Lines/Catheters IV Catheter Type (from Nrsg): Peripheral IV Urinary Cath still in place: Yes Reason Cath still needed: other (indicate) (not needed) Assessment/Plan Assessment/Plan 22-year-old woman with a history of lupus on CellCept, reportedly noncompliant who have been hospitalized [facility] in [facility] between August 03 and for altered mentation. Patient presented to [facility] a few hours prior to arrival to our ER. She was transported to [facility] yesterday per her PMD Dr. Bradshaw recommendation since patient is capitated here. # AMS -unclear etiology. Slowly improving now. 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 Patient had extensive workup at [facility] earlier this month including negative head CT and MRI. Lumbar puncture there showed an opening pressure of 26, elevated protein and decreased glucose. Autoimmune workup there and here showed decreased C3 and C4. She is status post high-dose Solu-Medrol and was also restarted on CellCept after she was seen by rheumatology at that hospital earlier this month. Patient was witnessed to have seizure lasting 1 minute when she initially presented at ER in [facility]. She was given Valium x1 then. Patient was treated for possible viral meningitis with acyclovir. She was also treated for pneumonia with a 7 days course of ceftriaxone there. Patient again still altered mental status, but slowly improving- brain MRI and head CT here in our ER was negative for any acute findings. LP has elevated total protein, otherwise appears negative. Vital stable. Lab shows a hemoglobin of 9.3 otherwise CBC and CMP within acceptable range. -CSF negative for HSV. Stopped acyclovir. -Follow-up RONI, dsDNA results, as well as CSF for autoimmune and paraneoplastic panels (send out) -Follow-up recommendations from infectious disease and neurology consults -continue her CellCept, which was started couple of days prior to transfer to [place] -We will also consult rheumatology team -PT and OT consults since she is still very weak on her feet, unable to fully ambulate. -Continue mechanical soft diet which patient appears to be tolerating now, follow-up further speech therapy recommendations #UTI - ESBL E Coli UTI without pyelonephritis. Will treat with nitrofurantoin. #Possible seizures: Again appeared to occur earlier this month at the [facility] in [facility]. As well, on her flight back to [place], patient possibly had seizure activity on the plane-EEG results reviewed from [facility] performed on August 10, 2018. EEG yesterday here is without ongoing epileptiform activity. -Follow-up recommendations from neurology team, on Trileptal now, Ativan as needed # GI ppx -H2 fernando Critical care time spent on patient care today equals 50 minutes. Result Diagram: 08/23/1837 08/23/18 0537 Results 24hrs Laboratory Tests Test 08/22/18 22:05 08/23/18 05:37 Random Gentamicin Level 1.9 White Blood Count 7.6 # Red Blood Count 3.01 L Hemoglobin 8.7 L Hematocrit 27.5 L Mean Corpuscular Volume 91.4 Mean Corpuscular Hemoglobin 28.9 L Mean Corpuscular Hemoglobin Concent 31.6 L Red Cell Distribution Width 15.0 H Platelet Count 270 Mean Platelet Volume 9.9 Immature Granulocytes % 1.200 H Neutrophils % 69.6 Lymphocytes % 23.5 Monocytes % 5.6 Eosinophils % 0.1 Basophils % 0.0 Nucleated Red Blood Cells % 0.0 Immature Granulocytes # 0.090 H Neutrophils # 5.3 Lymphocytes # 1.8 Monocytes # 0.4 Eosinophils # 0.0 Basophils # 0.0 Nucleated Red Blood Cells # 0.0 Sodium Level 139 Potassium Level 3.3 L Chloride Level 106 Carbon Dioxide Level 30 Anion Gap 3 L Blood Urea Nitrogen 8 Creatinine 0.52 Est Glomerular Filtrat Rate mL/min > 60 Glucose Level 93 Calcium Level 8.3 L Phosphorus Level 4.1 Magnesium Level 2.0 Subjective 24 Hr Interval Summary Free Text/Dictation No acute overnight events. Patient on telemetry. Patient very lethargic, slow to wake up; but after awakening able to answer questions appropriately. Exam/Review of Systems Vital Signs Vitals Vital Signs Date Temp Pulse Resp B/P (MAP) Pulse Ox O2 O2 Flow FiO2 Time Delivery Rate 08/23/18 93 16:00 08/23/18 97.9 18 97/55 (69) 100 11:45 08/23/18 Room Air 08:12 Intake and Output 08/22/18 08/22/18 08/23/18 1515:00 23:00 07:00 IntakeIntake Total 1010 ml 910 ml 1100 ml OutputOutput Total 325 ml 1800 ml 2000 ml BalanceBalance 685 ml -890 ml -900 ml Exam Gen: Well developed young woman lying in bed, lethargic and somnolent. HEENT:Pupils were equal round reactive to light Neck: No nuchal rigidity. Respiratory: Not using accessory muscles of respiration.Lungs were clear to auscultation bilaterally. No rhonchi. No rales. No wheezing. Cardiovascular: Regular rate regular rhythm.No murmurs. No rubs were appreciated.S1, S2 normal GI: Abdomen was soft. Nontender. Non Distended. No rebound. No guarding. Bowel sounds were present and normal. Muscle skeletal: Full range of motion of both the upper upper extremities, mi nimal movement of the bilateral lower extremities no assymetrical calf tenderness or swelling. Skin: No petechia, no purpura. No lesions on the palms or the soles of the feet. No maculopapular rash. NEURO: Alert and oriented to name, recognizes mother; says month is "1", disoriented to day. Says location is "[place]" but also believes she is in [facility]. Medications Medications Current Medications Dextrose/Sodium Chloride 1,000 ml @ 120 mls/hr Q8H20M IV Last administered on 08/23/18at 09:11; Admin Dose 120 MLS/HR; Start 08/20/18 at 21:28 Albuterol/ Ipratropium (Duoneb) 3 ml Q2H RESP THERAPY PRN NEB SHORTNESS OF BREATH; Start 08/20/18 at 21:30 Famotidine (Pepcid Iv) 20 mg DAILY IV Last administered on 08/23/18at 10:24; Admin Dose 20 MG; Start 08/22/18 at 09:00 Lorazepam (Ativan) 1 mg Q2H PRN IV SEIZURES Last administered on 08/22/18at 00:57; Admin Dose 1 MG; Start 08/21/18 at 11:30 Oxcarbazepine (Trileptal) 300 mg BID PO Last administered on 08/23/18at 09:12; Admin Dose 300 MG; Start 08/22/18 at 09:00 Prednisone (Prednisone) 20 mg DAILY PO Last administered on 08/23/18at 09:12; Admin Dose 20 MG; Start 08/22/18 at 12:00 Mycophenolate Mofetil (Cellcept) 500 mg BID PO Last administered on 08/23/18at 09:11; Admin Dose 500 MG; Start 08/22/18 at 21:00 Nitrofurantoin Macrocrystals (Macrobid) 100 mg BID PO ; Start 08/23/18 at 21:00; Stop 08/30/18 at 09:01 NICHOLE GARCIA MD Aug 23, 2018 17:15
--- NOTE | 2018-08-23 17:42 | CONS ---
DATE OF ADMISSION: 08/20/2018 DATE OF CONSULTATION: 08/21/2018 TYPE OF CONSULTATION: Infectious Disease. REASON FOR CONSULTATION: Antibiotic management. HISTORY OF PRESENT ILLNESS: Sanjay Melendrez is a 22-year-old female who comes in with altered levels of c onsciousness after traveling from [facility]. She is a 22-year-old female traveling recently, was born in [facility], the age of 12 moved to the [facility]. She went on 08/03/2018 for a trip for 18 day s. She traveled to [facility] and [facility]. On 08/10/2018., she was admitted [place] in [facility]. They indicated that the patient had history of lupus on CellCept, was not taking it regularly. She had a seizure in the emergency room. They felt that she had a viral infect ion with a sore throat and low grade fever. In August, the patient was confused and speaking nonsen sically. CT scan of the head was done, was unremarkable. She had a seizure in the emergency departm ent, resolved with Valium. Lumbar puncture was done with an opening pressure of 26 and she was start ed on Keppra and treated empirically for possible viral meningitis. She was started on acyclovir, ad mitted to neuro intensive care unit. She had a chest x-ray performed that showed right lower lobe pn eumonia which was treated for aspiration pneumonia. The patient had been given ceftriaxone which was continued on day 7. She had rheumatology and infectious disease consult. She had a positive Dilcia , low C3-C4 that could be a result for SLE flareup. Senior Clinical [employer] Programmer started her on Solu-Medrol 1 gram for 3 days and then switch to p.o. form. CellCept was started on 08/17/2018 and she was transported back to the [facility] on the . She received sedation en route and the last sedation was nicolette or to her arrival. The patient was then transferred to [facility]. She speaks very little Indonesian. She had an NG tube in when she came. On arrival, her white count was 9.7, H and H 9.3 and 29.8, platelet count 383,000. BUN and creatinine 21/0.46. HOSPITAL COURSE: The patient was seen by numerous physicians including Neurology, Dr. Sykes. She johns d a febrile illness consistent with pneumonia superimposed on an aseptic meningitis. MRI of the brai n with and without contrast was unremarkable. Dr. Sykes started Trileptal in the short term. Today, the patient is lethargic but feeling much improved. She has fatigue. She is currently on vancomyci n, gentamicin, acyclovir status post cefepime. Urine grew gram-negative rods, E. coli, ESBL. Blood cultures negative. It was sensitive to nitrofurantoin, which is an option. CSF was negative for HSV 1 and S2. No organisms seen. Pelvic ultrasound unremarkable. Chest x-ray impression, no evidence of acute cardiopulmonary disease. MRI no acute intracranial abnormality. PAST MEDICAL HISTORY: Operations as outlined. FAMILY HISTORY: Noncontributory. SOCIAL HISTORY: She does not smoke, drink or abuse drugs. ALLERGIES: NONE TO PENICILLIN, SULFA OR FOODS. MEDICATIONS: Per chart. REVIEW OF SYSTEMS: As per HPI. PHYSICAL EXAMINATION: GENERAL: The patient is well-developed, well-nourished female who is awake, responsive, in no acute distress but lethargic. SKIN: Without generalized rash. HEENT: Within normal limits. NECK: Supple. LYMPH NODES: None palpable. CHEST: Decreased breath sounds at the bases. HEART: Without murmur or gallop. ABDOMEN: Soft, nontender, without organosplenomegaly or masses. EXTREMITIES: Without cyanosis, clubbing, or edema. RECTAL AND GENITAL: Deferred. NEUROLOGIC: No focal neurological abnormality. IMPRESSION AND PLAN: The patient is a 22-year-old with lupus on CellCept status post hospitalization in [facility] given a diagnosis of leptomeningitis. She had seizures. She was treated with ceftriaxo ne. She has an aseptic meningitis. Currently, questionable aspiration pneumonia. She had an NG tub e placed during her hospitalization in [facility]. At this point we would discontinue vancomycin, disc ontinue gentamicin, discontinue acyclovir, start her on Macrobid 100 mg p.o. b.i.d. for 7 days. Whit e count today is 7.6. I will dictate my findings to the hospitalist. Dictated By: JON BENITEZ MD, JD/NTS Conf#: [id number] DID#: [id number] CC: LALY MOARTAYA MD;*EndCC*
--- NOTE | 2018-08-23 19:23 | NUR ---
EOSS: Patient remain stable. No significant changes. VS within normal limits. Hourly rounding done. Q2 hr repositioning. Assisted with ADL's care. Skin care and wound care treatment provided. Administered scheduled meds. No complaints of pain. PT today and wound consult done. Will endorse plan of care to the next shift.
[2018-08-23] MEDS: NITROFURANTOIN (SR) 100 MG CAP PO SCH (20:02)
[2018-08-24] VITALS (10 sets, daily range): BP systolic 97–113; BP diastolic 51–59; PULSE 65–109; RESP 16–19
[2018-08-24] MEDS: DEXTROSE 5%-0.45% NACL 1,000 ML IV SCH ×2 (00:28→11:38)
[2018-08-24] MEDS ORDERED: POTASSIUM CHLORIDE (SR) 20 MEQ TAB PO STA (04:47)
--- NOTE | 2018-08-24 06:49 | NUR ---
NURSE'S NOTES: Pt resting comfortably with stable VS and instrumentation engineering technician showing YQ=200. Denies any discomfort. IVF infusing well. IVATB ongoing with no adverse effects noted. Dr Shepard notified of K=3.3 with new order noted and carried out. Isolation precaution strictly observed secondary to medical condition. Mother and spouse at bedside. Kept clean and comfortable. Instructed on TCDB; assisted in turning to position of comfort. Call light in reach. Bed alarm on. All needs anticipated and attended promptly.
[2018-08-24] MEDS ORDERED: POTASSIUM CHLORIDE 20 MEQ POWDER FOR ORAL SOLN PO ONE (08:30)
[2018-08-24] MEDS: NITROFURANTOIN (SR) 100 MG CAP PO SCH ×2 (09:36→21:58)
[2018-08-24] MEDS: FAMOTIDINE 20 MG TAB PO SCH (09:36)
[2018-08-24] MEDS: MYCOPHENOLATE 250 MG CAP PO SCH ×2 (09:36→21:58)
[2018-08-24] MEDS: OXCARBAZEPINE 300 MG TAB PO SCH ×2 (09:37→22:09)
[2018-08-24] MEDS: predniSONE 20 MG TAB PO SCH (09:37)
--- NOTE | 2018-08-24 10:15 | NUR ---
OT EVAL: HPI per MD note: 22-year-old female with a history of lupus on CellCept, reportedly noncompliant who have been hospitalized [facility] in [facility] between August 03 and for altered mentation. Patient presented to LAX a few hours prior to arrival to our ER. She was transported to [facility] per her PMD Dr. Bradshaw recommendation since patient is capitated her. PLOF: Patient was independent with ADL and ambulatory without AD, works in a shop. lives with mother in a shared room, single story house, no entry steps. Pt doesn't own any AD. CLOF: RN cleared pt for skilled OT tx. Pt received supine in bed with mother at bedside. Pt AOx4, agreeable to tx and stated 0/10 pain. Pt performed supine->sit at EOB with Min A. Seated at EOB pt demonstrated F- balance and required min A to sit upright due to retropulsion. Pt donned and doffed socks and gown with CGA. Pt completed STS and functional mob using FWW with Min A and vc for safety. Pt stood at bathroom sink with Min A while completing h/g tasks with supervision. Pt returned to bed with Min A. Pt left supine in bed with all needs met. Rn notified. Pt will benefit from skilled OT tx 1x daily for 3-5x week to increase safety awareness, balance, endurance and independence with self care. Recommend d/c to ARU once medically cleared by . Addendum: 08/24/18 at 1220 by ANDREW MEI OT TIME 11:30
--- NOTE | 2018-08-24 11:13 | NUR ---
PT NOTE [facility] Patient: Sanjay Melendrez : 1995 Age/Sex: 22/F Unit#: [id number] Room/Bed: 505/A User: Lauren Mueller PTA Date: 08/24/18 11:13 Type: PT Technical Record Therapy day number 2 Subjective Current complaint of pain Pain Scale NUMERIC Pain Intensity 3 (0-10) Patient Stated Goal for Pain Relief 0 (0-10) Pain Level Comment IV insertion Exercise Assessment Label Bilat Lower Extremity Exercise Type Active ROM Additional Exercise Comments APs, LAQ, sebastián white. trunk; anterior reach and lateral weight shifting Transfer Training Start Time 10:40 Supine to Sit Minimum Assist Transfer Sit to Stand Ability Contact Guard Assist Bed Mobility Sit to Supine Moderate Assist Transfer Training End Time 11:00 Total Transfer Training Time 20 min (8-127) Gait Training Start Time 11:00 Gait Assist Levels Minimum Assist Assistive Devices Front Wheel Walker Ambulation Distance 8 feet Additional Gait Comments decreased step length/stride, 2 LOB due to weakness Gait Training End Time 11:13 Total Gait Training Treatment Time 13 min (8-127) Static Sitting Balance Fair minus Dynamic Sitting Balance Fair minus Standing Static Balance Fair minus Dynamic Standing Balance Poor plus Additional Balance Assessments Comments FWW Safety Judgement Fair Activity Tolerance Fair Equipment Present A pump Peralta Catheter IV pump Post Treatment Pain Intensity 0 0-10 Total Treament Time 33 min (8-127) Total Minutes 33 Total Units 2 PT Technical Record Comment S: RN Jamie cleared pt for PT. Pt c/o / IV site pain, however agreeable to tx O: Received pt in semifowler w/ mom present in room. See above for assist levels. Noted pt retropulsive while sitting EOB and standing. Required VC/TC for posture. Gait training x 8' and presented with slow lara and decreased step length/stride. 2 LOB due to BLEs weakenss and required Carroll to recover. Pt able to brush teeth and wash hands independently. Returned pt back to bed. Performed AROME while sitting at EOB; see technical record for therapeutic exercises. Assisted to supine and pt able to scoot herself to HOB w/ use of bed rails. Positioned pt to comfort in semifowler. Call light/phone within reach. Bed alarm on. Needs met. Informed RN of pt status and PT activities. A: Fair tolerance to tx. Pt retropulsive and BLEs generalized weakness while ambulating. LOB x2 and required Carroll to recover. P: Continue w/ POC and progress as tolerated. Will benefit from BLEs and BUEs strengthening.
--- NOTE | 2018-08-24 13:27 | CONS ---
Date/Time of Note Date/Time of Note DATE: 08/24/18 TIME: 13:26 Consult Date/Type/Reason Admit Date/Time Aug 20, 2018 at 19:48 Initial Consult Date 08/21/18 Type of Consultation: Rheum Requesting Provider: JAXON FERNÁNDEZ Subjective No new complaints. Alert. Oriented. Objective Vital Signs Date Temp Pulse Resp B/P (MAP) Pulse Ox O2 O2 Flow FiO2 Time Delivery Rate 08/24/18 98.6 76 18 100/58 98 12:29 (72) 08/23/18 Room Air 08:12 Intake and Output 08/23/18 08/23/18 08/24/18 1515:00 23:00 07:00 IntakeIntake Total 850 ml 1640 ml OutputOutput Total 2000 ml 1200 ml BalanceBalance -1150 ml 440 ml Exam GENERAL: No acute distress, alert and oriented x3, but some confusion. SKIN: Without rashes or other lesions. HEENT: Without acute oral or ocular lesions noted. NECK: Without lymphadenopathy. CHEST: Clear to auscultation. HEART: Regular rate and rhythm without gallops or murmurs noted. ABDOMEN: Soft without mass or tenderness. MUSCULOSKELETAL: Joints with good range of motion without synovitis or tenderness. NEUROLOGIC: At present grossly intact Results/Medications Result Diagram: 08/24/18 1035 08/24/18 1035 Results 24 hrs Laboratory Tests Test 08/24/18 10:35 White Blood Count 5.0 # Red Blood Count 3.11 L Hemoglobin 9.1 L Hematocrit 28.7 L Mean Corpuscular Volume 92.3 Mean Corpuscular Hemoglobin 29.3 Mean Corpuscular Hemoglobin Concent 31.7 L Red Cell Distribution Width 15.2 H Platelet Count 231 Mean Platelet Volume 9.8 Immature Granulocytes % 1.000 H Neutrophils % 65.4 Lymphocytes % 27.6 Monocytes % 5.4 Eosinophils % 0.6 Basophils % 0.0 Nucleated Red Blood Cells % 0.0 Immature Granulocytes # 0.050 H Neutrophils # 3.3 Lymphocytes # 1.4 Monocytes # 0.3 Eosinophils # 0.0 Basophils # 0.0 Nucleated Red Blood Cells # 0.0 Sodium Level 133 L Potassium Level 3.9 Chloride Level 96 #L Carbon Dioxide Level 32 H Anion Gap 5 Blood Urea Nitrogen 7 Creatinine 0.54 Est Glomerular Filtrat Rate mL/min > 60 Glucose Level 84 Calcium Level 8.1 L Phosphorus Level 4.1 Magnesium Level 1.8 Total Bilirubin 0.3 Direct Bilirubin 0.00 Indirect Bilirubin 0.3 Aspartate Amino Transf (AST/SGOT) 28 Alanine Aminotransferase (ALT/SGPT) 41 Alkaline Phosphatase 50 Total Protein 5.7 L Albumin 2.8 L Globulin 2.90 Albumin/Globulin Ratio 0.96 Medications Current Medications Dextrose/Sodium Chloride 1,000 ml @ 70 mls/hr [id number] IV Last administered on 08/24/18 00:28; Admin Dose 120 MLS/HR; Start 08/20/18 at 21:28 Albuterol/ Ipratropium (Duoneb) 3 ml Q2H RESP THERAPY PRN NEB SHORTNESS OF BREATH; Start 08/20/18 at 21:30 Lorazepam (Ativan) 1 mg Q2H PRN IV SEIZURES Last administered on 08/22/18 00:57; Admin Dose 1 MG; Start 08/21/18 at 11:30 Oxcarbazepine (Trileptal) 300 mg BID PO Last administered on 08/24/18 09:37; Admin Dose 300 MG; Start 08/22/18 at 09:00 Prednisone (Prednisone) 20 mg DAILY PO Last administered on 08/24/18 09:37; Admin Dose 20 MG; Start 08/22/18 at 12:00 Mycophenolate Mofetil (Cellcept) 500 mg BID PO Last administered on 08/24/18 09:36; Admin Dose 500 MG; Start 08/22/18 at 21:00 Nitrofurantoin Macrocrystals (Macrobid) 100 mg BID PO Last administered on 08/24/18 09:36; Admin Dose 100 MG; Start 08/23/18 at 21:00; Stop 08/30/18 at 09:01 Famotidine (Pepcid) 20 mg DAILY PO Last administered on 08/24/18 09:36; Admin Dose 20 MG; Start 08/24/18 at 09:00 Assessment/Plan Chief Complaint/Hosp Course ASSESSMENT: 1. Recent altered mental status and seizure disorder. Unclear if related to central nervous system lupus versus infectious etiology. 2. Systemic lupus erythematosus by history. Prior to her trip to [facility], she was apparently in no major distress and no evidence of active renal involvement; however, she was on CellCept and some prednisone. 3. Anemia with hematocrit around 25 unclear if it relates to the inflammatory process versus other. RECOMMENDATIONS: 1. Continue CellCept 500 mg twice a day. 2. Continue Prednisone 20 mg daily. 3. Neurology and infectious disease evaluation in process. BERTO VERNON MD Aug 24, 2018 13:27
--- NOTE | 2018-08-24 14:04 | CONS ---
Assessment/Plan Assessment/Plan Hospital Course Patient is awake and looks comfortable denies pain no fevers overnight. Indwelling: Peralta catheter Urine culture on admission grew E. coli ESBL Antimicrobials: Macrobid Physical examination: Well-nourished well-developed young woman who is alert in no distress. Head atraumatic normocephalic sclera nonicteric. Neck is supple. Chest rise symmetrical, breath sounds clear. Heart: S1-S2. Abdomen soft, bowel sounds present. Extremities without cyanosis. Skin: Pale, dry Assessment: 1. Aseptic meningitis 2. SLE per history, patient is on CellCept, rheumatology follows 3. Questionable seizure disorder 4. Status post acute encephalopathy, slowly improving Plan: Patient is stable she is being seen by neurology pulmonary team and rheumatology, she is on appropriate antibiotics for UTI Result Diagram: 08/24/18 1035 08/24/18 1035 Results 24hrs Laboratory Tests Test 08/24/18 10:35 White Blood Count 5.0 # Red Blood Count 3.11 L Hemoglobin 9.1 L Hematocrit 28.7 L Mean Corpuscular Volume 92.3 Mean Corpuscular Hemoglobin 29.3 Mean Corpuscular Hemoglobin Concent 31.7 L Red Cell Distribution Width 15.2 H Platelet Count 231 Mean Platelet Volume 9.8 Immature Granulocytes % 1.000 H Neutrophils % 65.4 Lymphocytes % 27.6 Monocytes % 5.4 Eosinophils % 0.6 Basophils % 0.0 Nucleated Red Blood Cells % 0.0 Immature Granulocytes # 0.050 H Neutrophils # 3.3 Lymphocytes # 1.4 Monocytes # 0.3 Eosinophils # 0.0 Basophils # 0.0 Nucleated Red Blood Cells # 0.0 Sodium Level 133 L Potassium Level 3.9 Chloride Level 96 #L Carbon Dioxide Level 32 H Anion Gap 5 Blood Urea Nitrogen 7 Creatinine 0.54 Est Glomerular Filtrat Rate mL/min > 60 Glucose Level 84 Calcium Level 8.1 L Phosphorus Level 4.1 Magnesium Level 1.8 Total Bilirubin 0.3 Direct Bilirubin 0.00 Indirect Bilirubin 0.3 Aspartate Amino Transf (AST/SGOT) 28 Alanine Aminotransferase (ALT/SGPT) 41 Alkaline Phosphatase 50 Total Protein 5.7 L Albumin 2.8 L Globulin 2.90 Albumin/Globulin Ratio 0.96 Consultation Date/Type/Reason Admit Date/Time Aug 20, 2018 at 19:48 Initial Consult Date 08/21/18 Type of Consult id Requesting Provider: JAXON FERNÁNDEZ Exam/Review of Systems Vital Signs Vitals Vital Signs Date Temp Pulse Resp B/P (MAP) Pulse Ox O2 O2 Flow FiO2 Time Delivery Rate 08/24/18 98.6 76 18 100/58 98 12:29 (72) 08/23/18 Room Air 08:12 Intake and Output 08/23/18 08/23/18 08/24/18 1515:00 23:00 07:00 IntakeIntake Total 850 ml 1640 ml OutputOutput Total 2000 ml 1200 ml BalanceBalance -1150 ml 440 ml Medications Medications Current Medications Dextrose/Sodium Chloride 1,000 ml @ 70 mls/hr [id number] IV Last administered on 08/24/18at 00:28; Admin Dose 120 MLS/HR; Start 08/20/18 at 21:28 Albuterol/ Ipratropium (Duoneb) 3 ml Q2H RESP THERAPY PRN NEB SHORTNESS OF BREATH; Start 08/20/18 at 21:30 Lorazepam (Ativan) 1 mg Q2H PRN IV SEIZURES Last administered on 08/22/18at 00:57; Admin Dose 1 MG; Start 08/21/18 at 11:30 Oxcarbazepine (Trileptal) 300 mg BID PO Last administered on 08/24/18at 09:37; Admin Dose 300 MG; Start 08/22/18 at 09:00 Prednisone (Prednisone) 20 mg DAILY PO Last administered on 08/24/18at 09:37; Admin Dose 20 MG; Start 08/22/18 at 12:00 Mycophenolate Mofetil (Cellcept) 500 mg BID PO Last administered on 08/24/18at 09:36; Admin Dose 500 MG; Start 08/22/18 at 21:00 Nitrofurantoin Macrocrystals (Macrobid) 100 mg BID PO Last administered on 08/24/18 09:36; Admin Dose 100 MG; Start 08/23/18 at 21:00; Stop 08/30/18 at 09:01 Famotidine (Pepcid) 20 mg DAILY PO Last administered on 08/24/18 09:36; Admin Dose 20 MG; Start 08/24/18 at 09:00 Date/Time of Note Date/Time of Note DATE: 08/24/18 TIME: 14:04 JERO SINGH NP Aug 24, 2018 14:04
--- NOTE | 2018-08-24 15:00 | NUR ---
CM NOTES: This caption writer spoke with Noe of ARU who stated patient qualifies for ARU will receive patient once there is a DC order to SNF, authorization from insurance company is received and bed available. \ Cher Edgar RNCM
--- NOTE | 2018-08-24 15:53 | CONS ---
Assessment/Plan Assessment/Plan Hospital Course 22 F c/ reported Hx of SLE on immunomodulatory Tx...who is admitted [facility] ICU for evaluation and management of ams following recent seizures.. Notably, she recently traveled to [facility], where she developed a febrile illness that was thought consistent w/ pneumonia.. There was perhaps a superimposed aseptic meningitis in that context... MRI brain w/ and w/o contrast is unremarkable Repeat CSF evaluation is now unremarkable.. EEG is without ongoing epileptiform activity.. P: Continue Trileptal in the short term (~3 months) given report of repeated clinical seizures prior to this presentation.. Reorient as necessary Limit sedating medications where possible PT/OT as necessary Other management per primary She cannot drive... Will follow Result Diagram: 08/24/18 1035 08/24/18 1035 Results 24hrs Laboratory Tests Test 08/24/18 10:35 White Blood Count 5.0 # Red Blood Count 3.11 L Hemoglobin 9.1 L Hematocrit 28.7 L Mean Corpuscular Volume 92.3 Mean Corpuscular Hemoglobin 29.3 Mean Corpuscular Hemoglobin Concent 31.7 L Red Cell Distribution Width 15.2 H Platelet Count 231 Mean Platelet Volume 9.8 Immature Granulocytes % 1.000 H Neutrophils % 65.4 Lymphocytes % 27.6 Monocytes % 5.4 Eosinophils % 0.6 Basophils % 0.0 Nucleated Red Blood Cells % 0.0 Immature Granulocytes # 0.050 H Neutrophils # 3.3 Lymphocytes # 1.4 Monocytes # 0.3 Eosinophils # 0.0 Basophils # 0.0 Nucleated Red Blood Cells # 0.0 Sodium Level 133 L Potassium Level 3.9 Chloride Level 96 #L Carbon Dioxide Level 32 H Anion Gap 5 Blood Urea Nitrogen 7 Creatinine 0.54 Est Glomerular Filtrat Rate mL/min > 60 Glucose Level 84 Calcium Level 8.1 L Phosphorus Level 4.1 Magnesium Level 1.8 Total Bilirubin 0.3 Direct Bilirubin 0.00 Indirect Bilirubin 0.3 Aspartate Amino Transf (AST/SGOT) 28 Alanine Aminotransferase (ALT/SGPT) 41 Alkaline Phosphatase 50 Total Protein 5.7 L Albumin 2.8 L Globulin 2.90 Albumin/Globulin Ratio 0.96 Consultation Date/Type/Reason Admit Date/Time Aug 20, 2018 at 19:48 Type of Consult Neurology Requesting Provider: JAXON FERNÁNDEZ Date/Time of Note DATE: 08/24/18 TIME: 15:53 24 HR Interval Summary Free Text/Dictation Continues telemetry monitoring. Pt states she's doing well today. Wants to get out of bed. Exam Vital Signs Vitals Vital Signs Date Temp Pulse Resp B/P (MAP) Pulse Ox O2 O2 Flow FiO2 Time Delivery Rate 08/24/18 98.0 87 16 107/51 98 15:50 (69) 08/23/18 Room Air 08:12 Intake and Output 08/23/18 08/23/18 08/24/18 1515:00 23:00 07:00 IntakeIntake Total 850 ml 1640 ml OutputOutput Total 2000 ml 1200 ml BalanceBalance -1150 ml 440 ml Exam PE: Gen Appearance: No Apparent Distress HEENT: Normocephalic Cardiovascular: Regular rate Lungs: Clear bilaterally Abdomen: Soft Extremities: Dry NE: The patient was asleep though easily arousable to voice; oriented to self, month, place, and situation. Language was normal. Fund of knowledge was somewhat limited. Pupils were equal and reactive to light. There was no afferent pupillary defect. Visual severino were normal. Funduscopic examination was limited. Extra-ocular movements were full. Ptosis was absent. There was no nystagmus. Facial sensation was normal. Face was symmetric with normal strength. Hearing was intact. Palate movements were normal. Neck strength was normal. There was normal tongue bulk and speed of movement. Tone was normal. Muscle bulk was normal. I did not see fasciculations. Arms and legs were mildly weak, symmetric.. Vibration sensation was normal. Temperature and pinprick sensation was normal. Rapid alternating movements were normal. There was no dysmetria. There was no intention tremor. Pt was weak upon standing, without postural instability. Gait was deferred due to bedrest. Arm and leg reflexes were 2+ and symmetric. Chatman's sign was absent. Plantar responses were flexor. IRVIN MEEK NP Aug 24, 2018 15:53
--- NOTE | 2018-08-24 16:14 | NUR ---
Dysphagia/Swallow Therapy Note: Brief Hx: Ms. Grace is a 22-year-old female hospitalized in [facility] from 08/03/2018 to 08/19/2018, given a diagnosis of leptomeningitis. She had seizures and Pt was with lupus on CellCept She has an aseptic meningitis. Currently, questionable aspiration pneumonia upon admission, per chart review. She had an NG tube placed during her hospitalization in [facility]. Transferred to [facility] from [facility]. PMH (+) Systemic lupus erythematosus and encephalitis of unclear origin. MRI of the brain revealed no intracranial abnormalities. Chest x-ray revealed no evidence for acute cardiopulmonary disease. Vitals: temp: 95.6; RR: 18-20; SPO2: 100% on RA; Labs: WBC: 5.0; Hgb/Hct: 9.1L/28.7L; K: 3.3L; Current diet: finely chopped/thin liquids by cup/straw. S: pt was received with mother present during lunchtime. She was awake/alert and oriented x4. pt was agreeable for tx. O: Rx plan was reviewed and tx consisted of the followin. improve swallow function. 2. assess p.o intake with meal tray: pt consumed single bites of chopped chicken in soup, single bites of rice and single sips of thin liquid by cup and straw with min verbal prompts and use of tongue sweep reswallow. Slow but adequate bolus manipulation, mastication and A-P transit. No s/s of aspiration or penetration. Pt still required assistance during p.o intake due to debility and generalized weakness. 3. reviewed the swallowing precautions with the pts family. Pts mother verbalized agreement and understanding. 4. p.o status/diet consistency/level of supervision: Advance to mechanical soft (chopped) and continue thin liquids A: mild oropharyngeal dysphagia, However, pt is continuing to demonstrate excellent progress towards her goals. P: 1. Continue Poc. 2. Continue with mechanical soft (chopped) and thin liquids.
--- NOTE | 2018-08-24 16:17 | PN ---
Date/Time of Note Date/Time of Note DATE: 08/24/18 TIME: 16:15 Assessment/Plan VTE Prophylaxis Risk score (from Nsg)>0 risk: 1 SCD applied (from Nsg): Yes Pharmacological prophylaxis: NA/contraindicated Pharm contraindication: low risk/ambulating Lines/Catheters IV Catheter Type (from Nrsg): Peripheral IV Urinary Cath still in place: No Assessment/Plan Assessment/Plan 22-year-old woman with a history of lupus on CellCept, reportedly noncompliant who have been hospitalized [facility] in [facility] between August 03 and for altered mentation. Patient presented to [facility] a few hours prior to arrival to our ER. She was transported to [facility] yesterday per her PMD Dr. Bradshaw recommendation since patient is capitated here. # AMS -unclear etiology. Slowly improving now. 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 Patient had extensive workup at [facility] earlier this month including negative head CT and MRI. Lumbar puncture there showed an opening pressure of 26, elevated protein and decreased glucose. Autoimmune workup there and here showed decreased C3 and C4. She is status post high-dose Solu-Medrol and was also restarted on CellCept after she was seen by rheumatology at that hospital earlier this month. Patient was witnessed to have seizure lasting 1 minute when she initially presented at ER in [facility]. She was given Valium x1 then. Patient was treated for possible viral meningitis with acyclovir. She was also treated for pneumonia with a 7 days course of ceftriaxone there. Patient again still altered mental status, but slowly improving- brain MRI and head CT here in our ER was negative for any acute findings. LP has elevated total protein, otherwise appears negative. Vital stable. Lab shows a hemoglobin of 9.3 otherwise CBC and CMP within acceptable range. -CSF negative for HSV. Stopped acyclovir. -Follow-up RONI, dsDNA results, as well as CSF for autoimmune and paraneoplastic panels (send out) -Follow-up recommendations from infectious disease and neurology consults -continue her CellCept and prednisone. -We will also consult rheumatology team -PT and OT consults since she is still very weak on her feet, unable to fully ambulate. -Continue mechanical soft diet which patient appears to be tolerating now, follow-up further speech therapy recommendations #UTI - ESBL E Coli UTI without pyelonephritis. Will treat with nitrofurantoin. #Possible seizures: Again appeared to occur earlier this month at the [facility]. As well, on her flight back to [place], patient possibly had seizure activity on the plane-EEG results reviewed from [facility] performed on August 10, 2018. EEG yesterday here is without ongoing epileptiform activity. -Follow-up recommendations from neurology team, on Trileptal now, Ativan as needed # GI ppx -H2 fernando Dispo: Medically stable for discharge to ARU. Result Diagram: 08/24/18 1035 08/24/18 1035 Results 24hrs Laboratory Tests Test 08/24/18 10:35 White Blood Count 5.0 # Red Blood Count 3.11 L Hemoglobin 9.1 L Hematocrit 28.7 L Mean Corpuscular Volume 92.3 Mean Corpuscular Hemoglobin 29.3 Mean Corpuscular Hemoglobin Concent 31.7 L Red Cell Distribution Width 15.2 H Platelet Count 231 Mean Platelet Volume 9.8 Immature Granulocytes % 1.000 H Neutrophils % 65.4 Lymphocytes % 27.6 Monocytes % 5.4 Eosinophils % 0.6 Basophils % 0.0 Nucleated Red Blood Cells % 0.0 Immature Granulocytes # 0.050 H Neutrophils # 3.3 Lymphocytes # 1.4 Monocytes # 0.3 Eosinophils # 0.0 Basophils # 0.0 Nucleated Red Blood Cells # 0.0 Sodium Level 133 L Potassium Level 3.9 Chloride Level 96 #L Carbon Dioxide Level 32 H Anion Gap 5 Blood Urea Nitrogen 7 Creatinine 0.54 Est Glomerular Filtrat Rate mL/min > 60 Glucose Level 84 Calcium Level 8.1 L Phosphorus Level 4.1 Magnesium Level 1.8 Total Bilirubin 0.3 Direct Bilirubin 0.00 Indirect Bilirubin 0.3 Aspartate Amino Transf (AST/SGOT) 28 Alanine Aminotransferase (ALT/SGPT) 41 Alkaline Phosphatase 50 Total Protein 5.7 L Albumin 2.8 L Globulin 2.90 Albumin/Globulin Ratio 0.96 Subjective 24 Hr Interval Summary Free Text/Dictation Patient is awake, alert, responsive today. Agreeable to discharge to ARU. Still very weak. Unable to stand or ambulate independently. Exam/Review of Systems Vital Signs Vitals Vital Signs Date Temp Pulse Resp B/P (MAP) Pulse Ox O2 O2 Flow FiO2 Time Delivery Rate 08/24/18 98.0 87 16 107/51 98 15:50 (69) 08/23/18 Room Air 08:12 Intake and Output 08/23/18 08/23/18 08/24/18 1414:59 22:59 06:59 IntakeIntake Total 850 ml 1640 ml OutputOutput Total 2000 ml 1200 ml BalanceBalance -1150 ml 440 ml Exam Gen: Well developed young woman lying in bed, awake alert and responsive. HEENT:Pupils were equal round reactive to light Neck: No nuchal rigidity. Respiratory: Not using accessory muscles of respiration.Lungs were clear to auscultation bilaterally. No rhonchi. No rales. No wheezing. Cardiovascular: Regular rate regular rhythm.No murmurs. No rubs were appreciated.S1, S2 normal GI: Abdomen was soft. Nontender. Non Distended. No rebound. No guarding. Bowel sounds were present and normal. Muscle skeletal: Full range of motion of both the upper upper extremities, mi nimal movement of the bilateral lower extremities no assymetrical calf tenderness or swelling. Skin: No petechia, no purpura. No lesions on the palms or the soles of the feet. No maculopapular rash. Medications Medications Current Medications Dextrose/Sodium Chloride 1,000 ml @ 70 mls/hr [id number] IV Last administered on 08/24/18at 00:28; Admin Dose 120 MLS/HR; Start 08/20/18 at 21:28 Albuterol/ Ipratropium (Duoneb) 3 ml Q2H RESP THERAPY PRN NEB SHORTNESS OF BREATH; Start 08/20/18 at 21:30 Lorazepam (Ativan) 1 mg Q2H PRN IV SEIZURES Last administered on 08/22/18at 00:57; Admin Dose 1 MG; Start 08/21/18 at 11:30 Oxcarbazepine (Trileptal) 300 mg BID PO Last administered on 08/24/18 09:37; Admin Dose 300 MG; Start 08/22/18 at 09:00 Prednisone (Prednisone) 20 mg DAILY PO Last administered on 08/24/18at 09:37; Admin Dose 20 MG; Start 08/22/18 at 12:00 Mycophenolate Mofetil (Cellcept) 500 mg BID PO Last administered on 08/24/18at 09:36; Admin Dose 500 MG; Start 08/22/18 at 21:00 Nitrofurantoin Macrocrystals (Macrobid) 100 mg BID PO Last administered on 08/24/18at 09:36; Admin Dose 100 MG; Start 08/23/18 at 21:00; Stop 08/30/18 at 09:01 Famotidine (Pepcid) 20 mg DAILY PO Last administered on 08/24/18at 09:36; Admin Dose 20 MG; Start 08/24/18 at 09:00 NICHOLE GARCIA MD Aug 24, 2018 16:17
--- NOTE | 2018-08-24 19:01 | NUR ---
For discharge to ARU, jayleen Liu from ARU awaiting for authorization of insurance. Possible DC tomorrow 08/25/2018.
[2018-08-25] VITALS (11 sets, daily range): BP systolic 90–102; BP diastolic 50–57; PULSE 85–106; RESP 18–19
--- NOTE | 2018-08-25 06:16 | NUR ---
END OF THE SHIFT:PT. IS AA,O X3.F/C REMOVED,VOIDING INDEPENDENTLY.NO DISTRESS/DISCOMFORT NOTED DURING THE SHIFT.FAMILY IS AT THE BEDSIDE.PLAN -D/C TO ARE.
[2018-08-25] MEDS: OXCARBAZEPINE 300 MG TAB PO SCH ×2 (09:40→20:43)
[2018-08-25] MEDS: FAMOTIDINE 20 MG TAB PO SCH (09:41)
[2018-08-25] MEDS: NITROFURANTOIN (SR) 100 MG CAP PO SCH ×2 (09:41→20:43)
[2018-08-25] MEDS: predniSONE 20 MG TAB PO SCH (09:41)
[2018-08-25] MEDS: MYCOPHENOLATE 250 MG CAP PO SCH ×2 (11:14→20:43)
--- NOTE | 2018-08-25 12:15 | NUR ---
OT NOTE: S: RN cleared pt for skilled OT tx. PT reported 0/10 pain. O: Pt received supine in bed with mother at bedside. Pt agreeable to tx stating 0/10 pain. Pt performed supine->sit at EOB with SBA. Pt demonstrated F/F- balance seated at EOB. OTR educated pt on importance of keeping feet flat on the floor due to retropulsive tendency. Pt engaged in dynamic reaching activities to increase core strength and balance. Pt demonstrated STS and functional mob with CGA/Min A using FWW with vc for safety. Pt completed h/g tasks with supervision while standing at bathroom sink with CGA/Min A. Pt's HR elevated to 140 and pt returned to bed with SBA. Once back in bed HR returned to 99. Pt left supine in bed with all needs met. RN notified. A: Pt moises tx well P: Cont POC.
--- NOTE | 2018-08-25 12:27 | NUR ---
PT NOTE [facility] Patient: Sanjay Melendrez : 1995 Age/Sex: 22/F Unit#: [id number] Room/Bed: 505/A User: [place] PT Date: 08/25/18 11:35 Type: PT Technical Record Therapy day number 3 Subjective Denies pain Pain Scale NUMERIC Pain Intensity 0 (0-10) Patient Stated Goal for Pain Relief 0 (0-10) Pain Level Comment denies pain Supine to Sit Contact Guard Assist Transfer Sit to Stand Ability Contact Guard Assist Bed Mobility Sit to Supine Contact Guard Assist Additional Mobility Comments mild, though frequent, retropulsion in sitting, constant VC to correct Gait Training Start Time 11:35 Gait Assist Levels Minimum Assist Assistive Devices Front Wheel Walker Ambulation Distance 25 feet Additional Gait Comments narrow ROMEL, B LE crossing midline occassionally Gait Training End Time 11:51 Total Gait Training Treatment Time 16 min (8-127) Static Sitting Balance Fair Dynamic Sitting Balance Fair minus Standing Static Balance Fair minus Dynamic Standing Balance Fair minus Additional Balance Assessments Comments FWW Balance Training Static or Dynamic Start Time 11:51 Balance Training Static or Dynamic End Time 12:09 Total Balance Training Time 18 min (8-127) Safety Judgement Fair Activity Tolerance Fair Equipment Present A pump Post Treatment Pain Intensity 0 0-10 Total Treament Time 34 min (8-127) Total Minutes 34 Total Units 2 PT Technical Record Comment S: Pt denied pain, reported mild dizziness upon supine>sitting EOB O: Pt received semi-supine in bed, agreeable to PT session, family at bedside. Pt participated in interventions above including gait training and seated balance training. Noted with static sitting and standing, mild-mod retropulsion, requiring frequent verbal cues to maintain static sitting balance. Noted HR increased to as high as 140 bpm during amb. Pt returned to bed, all needs in reach, no signs of distress, HR at 108 bpm. RN notified of pt's status A: Pt continues to demonstrate moderate balance impairments in sitting and standing, notable consistent retropulsion in either position and amb with narrow ROMEL/B LE crossing midline. No LOB this session. Requires frequent verbal cues for safety. Anticipating d/c to ARU. P :Continue c PT POC
--- NOTE | 2018-08-25 13:17 | CONS ---
Date/Time of Note Date/Time of Note DATE: 08/25/18 TIME: 13:15 Consult Date/Type/Reason Admit Date/Time Aug 20, 2018 at 19:48 Initial Consult Date 08/21/18 Type of Consultation: Rheum Requesting Provider: JAXON FERNÁNDEZ Subjective Resting comfortably without new complaints. Objective Vital Signs Date Temp Pulse Resp B/P (MAP) Pulse Ox O2 O2 Flow FiO2 Time Delivery Rate 08/25/18 106 12:05 08/25/18 98.0 18 90/52 (65) 99 Room Air 11:20 Intake and Output 08/24/18 08/24/18 08/25/18 1515:00 23:00 07:00 IntakeIntake Total 1540 ml 500 ml OutputOutput Total 2900 ml 800 ml BalanceBalance -1360 ml -300 ml Exam GENERAL: No acute distress, alert and oriented SKIN: Without rashes or other lesions. HEENT: Without acute oral or ocular lesions noted. NECK: Without lymphadenopathy. CHEST: Clear to auscultation. HEART: Regular rate and rhythm without gallops or murmurs noted. ABDOMEN: Soft without mass or tenderness. MUSCULOSKELETAL: Joints with good range of motion without synovitis or tenderness. NEUROLOGIC: At present grossly intact Results/Medications Result Diagram: 08/25/18 0539 08/25/18 0539 Results 24 hrs Laboratory Tests Test 08/25/18 05:39 White Blood Count 4.4 L Red Blood Count 3.27 L Hemoglobin 9.6 L Hematocrit 29.5 L Mean Corpuscular Volume 90.2 Mean Corpuscular Hemoglobin 29.4 Mean Corpuscular Hemoglobin Concent 32.5 Red Cell Distribution Width 15.6 H Platelet Count 247 Mean Platelet Volume 9.7 Immature Granulocytes % 1.100 H Neutrophils % 68.9 Lymphocytes % 23.2 Monocytes % 6.4 Eosinophils % 0.2 Basophils % 0.2 Nucleated Red Blood Cells % 0.0 Immature Granulocytes # 0.050 H Neutrophils # 3.0 Lymphocytes # 1.0 Monocytes # 0.3 Eosinophils # 0.0 Basophils # 0.0 Nucleated Red Blood Cells # 0.0 Sodium Level 138 Potassium Level 3.8 Chloride Level 96 L Carbon Dioxide Level 31 Anion Gap 11 Blood Urea Nitrogen 8 Creatinine 0.51 Est Glomerular Filtrat Rate mL/min > 60 Glucose Level 88 Calcium Level 8.6 Phosphorus Level 4.5 Magnesium Level 2.0 Medications Current Medications Albuterol/ Ipratropium (Duoneb) 3 ml Q2H RESP THERAPY PRN NEB SHORTNESS OF BREATH; Start 08/20/18 at 21:30 Lorazepam (Ativan) 1 mg Q2H PRN IV SEIZURES Last administered on 08/22/18 00:5 7; Admin Dose 1 MG; Start 08/21/18 at 11:30 Oxcarbazepine (Trileptal) 300 mg BID PO Last administered on 08/25/18 09:40; Admin Dose 300 MG; Start 08/22/18 at 09:00 Prednisone (Prednisone) 20 mg DAILY PO Last administered on 08/25/18 09:41; Admin Dose 20 MG; Start 08/22/18 at 12:00 Mycophenolate Mofetil (Cellcept) 500 mg BID PO Last administered on 08/25/18 11:14; Admin Dose 500 MG; Start 08/22/18 at 21:00 Nitrofurantoin Macrocrystals (Macrobid) 100 mg BID PO Last administered on 08/25/18 09:41; Admin Dose 100 MG; Start 08/23/18 at 21:00; Stop 08/30/18 at 09:01 Famotidine (Pepcid) 20 mg DAILY PO Last administered on 08/25/18 09:41; Admin Dose 20 MG; Start 08/24/18 at 09:00 Assessment/Plan Chief Complaint/Hosp Course ASSESSMENT: 1. Recent altered mental status and seizure disorder. Unclear if related to central nervous system lupus versus infectious etiology. 2. Systemic lupus erythematosus by history. Prior to her trip to [facility], she was apparently in no major distress and no evidence of active renal involvement; however, she was on CellCept and some prednisone. 3. Anemia with hematocrit around 25 unclear if it relates to the inflammatory process versus other. RECOMMENDATIONS: 1. Continue CellCept 500 mg twice a day until reevaluated by her Manager Requirements as outpatient. 2. Continue Prednisone 20 mg daily until reevaluated by her Manager Requirements as outpatient. 3. Neurology and infectious disease evaluation in process. BERTO VERNON MD Aug 25, 2018 13:17
--- NOTE | 2018-08-25 13:50 | CONS ---
Assessment/Plan Assessment/Plan Hospital Course 22 F c/ reported Hx of SLE on immunomodulatory Tx...who is admitted to the [facility] ICU for evaluation and management of ams following recent seizures.. Notably, she recently traveled to [facility], where she developed a febrile illness that was thought consistent w/ pneumonia.. There was perhaps a superimposed aseptic meningitis in that context... MRI brain w/ and w/o contrast is unremarkable Repeat CSF evaluation is now unremarkable.. EEG is without ongoing epileptiform activity.. P: Continue Trileptal in the short term (~3 months) given report of repeated clinical seizures prior to this presentation.. Reorient as necessary Limit sedating medications where possible PT/OT as necessary Other management per primary She cannot drive... Will follow Result Diagram: 08/25/1839 08/25/18 0539 Results 24hrs Laboratory Tests Test 08/25/18 05:39 White Blood Count 4.4 L Red Blood Count 3.27 L Hemoglobin 9.6 L Hematocrit 29.5 L Mean Corpuscular Volume 90.2 Mean Corpuscular Hemoglobin 29.4 Mean Corpuscular Hemoglobin Concent 32.5 Red Cell Distribution Width 15.6 H Platelet Count 247 Mean Platelet Volume 9.7 Immature Granulocytes % 1.100 H Neutrophils % 68.9 Lymphocytes % 23.2 Monocytes % 6.4 Eosinophils % 0.2 Basophils % 0.2 Nucleated Red Blood Cells % 0.0 Immature Granulocytes # 0.050 H Neutrophils # 3.0 Lymphocytes # 1.0 Monocytes # 0.3 Eosinophils # 0.0 Basophils # 0.0 Nucleated Red Blood Cells # 0.0 Sodium Level 138 Potassium Level 3.8 Chloride Level 96 L Carbon Dioxide Level 31 Anion Gap 11 Blood Urea Nitrogen 8 Creatinine 0.51 Est Glomerular Filtrat Rate mL/min > 60 Glucose Level 88 Calcium Level 8.6 Phosphorus Level 4.5 Magnesium Level 2.0 Consultation Date/Type/Reason Admit Date/Time Aug 20, 2018 at 19:48 Type of Consult Neurology Requesting Provider: JAXON FERNÁNDEZ Date/Time of Note DATE: 08/25/18 TIME: 13:50 24 HR Interval Summary Free Text/Dictation Continues telemetry monitoring. No acute events or complaints reported. Reportedly walking with physical therapy today Exam Vital Signs Vitals Vital Signs Date Temp Pulse Resp B/P (MAP) Pulse Ox O2 O2 Flow FiO2 Time Delivery Rate 08/25/18 106 12:05 08/25/18 98.0 18 90/52 (65) 99 Room Air 11:20 Intake and Output 08/24/18 08/24/18 08/25/18 1515:00 23:00 07:00 IntakeIntake Total 1540 ml 500 ml OutputOutput Total 2900 ml 800 ml BalanceBalance -1360 ml -300 ml Exam PE: Gen Appearance: No Apparent Distress HEENT: Normocephalic Cardiovascular: Regular rate Lungs: Clear bilaterally Abdomen: Soft Extremities: Dry NE: The patient was asleep though easily arousable to voice; oriented to self, month, place, and situation. Language was normal. Fund of knowledge was somewhat limited. Pupils were equal and reactive to light. There was no afferent pupillary defect. Visual severino were normal. Funduscopic examination was limited. Extra-ocular movements were full. Ptosis was absent. There was no nystagmus. Facial sensation was normal. Face was symmetric with normal strength. Hearing was intact. Palate movements were normal. Neck strength was normal. There was normal tongue bulk and speed of movement. Tone was normal. Muscle bulk was normal. I did not see fasciculations. Arms and legs were mildly weak, symmetric.. Vibration sensation was normal. Temperature and pinprick sensation was normal. Rapid alternating movements were normal. There was no dysmetria. There was no intention tremor. Pt was weak upon standing, without postural instability. Gait was deferred due to bedrest. Arm and leg reflexes were 2+ and symmetric. Chatman's sign was absent. Plantar responses were flexor. IRVIN MEEK NP Aug 25, 2018 13:50
--- NOTE | 2018-08-25 14:29 | CONS ---
Assessment/Plan Assessment/Plan Hospital Course Patient is awake, no fevers, voiding s/p Peralta dc'd Urine culture on admission grew E. coli ESBL Antimicrobials: Macrobid Physical examination: Well-nourished well-developed young woman who is alert in no distress. Head atraumatic normocephalic sclera nonicteric. Neck is supple. Chest rise symmetrical, breath sounds clear. Heart: S1-S2. Abdomen soft, bowel sounds present. Extremities without cyanosis. Skin: Pale, dry Assessment: 1. Aseptic meningitis 2. SLE per history, patient is on CellCept, rheumatology follows 3. Questionable seizure disorder 4. Status post acute encephalopathy, slowly improving Plan: Patient is stable, on appropriate antibiotics for UTI, continue PT Result Diagram: 08/25/18 0539 08/25/18 0539 Results 24hrs Laboratory Tests Test 08/25/18 05:39 White Blood Count 4.4 L Red Blood Count 3.27 L Hemoglobin 9.6 L Hematocrit 29.5 L Mean Corpuscular Volume 90.2 Mean Corpuscular Hemoglobin 29.4 Mean Corpuscular Hemoglobin Concent 32.5 Red Cell Distribution Width 15.6 H Platelet Count 247 Mean Platelet Volume 9.7 Immature Granulocytes % 1.100 H Neutrophils % 68.9 Lymphocytes % 23.2 Monocytes % 6.4 Eosinophils % 0.2 Basophils % 0.2 Nucleated Red Blood Cells % 0.0 Immature Granulocytes # 0.050 H Neutrophils # 3.0 Lymphocytes # 1.0 Monocytes # 0.3 Eosinophils # 0.0 Basophils # 0.0 Nucleated Red Blood Cells # 0.0 Sodium Level 138 Potassium Level 3.8 Chloride Level 96 L Carbon Dioxide Level 31 Anion Gap 11 Blood Urea Nitrogen 8 Creatinine 0.51 Est Glomerular Filtrat Rate mL/min > 60 Glucose Level 88 Calcium Level 8.6 Phosphorus Level 4.5 Magnesium Level 2.0 Consultation Date/Type/Reason Admit Date/Time Aug 20, 2018 at 19:48 Initial Consult Date 08/21/18 Type of Consult id Requesting Provider: JAXON FERNÁNDEZ Exam/Review of Systems Vital Signs Vitals Vital Signs Date Temp Pulse Resp B/P (MAP) Pulse Ox O2 O2 Flow FiO2 Time Delivery Rate 08/25/18 106 12:05 08/25/18 98.0 18 90/52 (65) 99 Room Air 11:20 Intake and Output 08/24/18 08/24/18 08/25/18 1515:00 23:00 07:00 IntakeIntake Total 1540 ml 500 ml OutputOutput Total 2900 ml 800 ml BalanceBalance -1360 ml -300 ml Medications Medications Current Medications Albuterol/ Ipratropium (Duoneb) 3 ml Q2H RESP THERAPY PRN NEB SHORTNESS OF BREATH; Start 08/20/18 at 21:30 Lorazepam (Ativan) 1 mg Q2H PRN IV SEIZURES Last administered on 08/22/18at 00:57; Admin Dose 1 MG; Start 08/21/18 at 11:30 Oxcarbazepine (Trileptal) 300 mg BID PO Last administered on 08/25/18at 09:40; Admin Dose 300 MG; Start 08/22/18 at 09:00 Prednisone (Prednisone) 20 mg DAILY PO Last administered on 08/25/18at 09:41; Admin Dose 20 MG; Start 08/22/18 at 12:00 Mycophenolate Mofetil (Cellcept) 500 mg BID PO Last administered on 08/25/18at 11:14; Admin Dose 500 MG; Start 08/22/18 at 21:00 Nitrofurantoin Macrocrystals (Macrobid) 100 mg BID PO Last administered on 08/25/18at 09:41; Admin Dose 100 MG; Start 08/23/18 at 21:00; Stop 08/30/18 at 09:01 Famotidine (Pepcid) 20 mg DAILY PO Last administered on 08/25/18at 09:41; Admin Dose 20 MG; Start 08/24/18 at 09:00 Date/Time of Note Date/Time of Note DATE: 08/25/18 TIME: 14:28 JERO SINGH NP Aug 25, 2018 14:29
--- NOTE | 2018-08-25 14:56 | PN ---
Date/Time of Note Date/Time of Note DATE: 08/25/18 TIME: 14:54 Assessment/Plan VTE Prophylaxis Risk score (from Nsg)>0 risk: 1 SCD applied (from Nsg): Yes Pharmacological prophylaxis: other (scds) Lines/Catheters IV Catheter Type (from Nrsg): Peripheral IV Urinary Cath still in place: No Assessment/Plan Assessment/Plan 22-year-old woman with a history of lupus on CellCept, reportedly noncompliant who have been hospitalized [facility] in [facility] [place] between August 03 and for altered mentation. Patient presented to [facility] a few hours prior to arrival to our ER. She was transported to [facility] yesterday per her PMD Dr. Bradshaw recommendation since patient is capitated here. # AMS -unclear etiology. Slowly improving now. 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 Patient had extensive workup at [facility] [place] earlier this month including negative head CT and MRI. Lumbar puncture there showed an opening pressure of 26, elevated protein and decreased glucose. Autoimmune workup there and here showed decreased C3 and C4. She is status post high-dose Solu-Medrol and was also restarted on CellCept after she was seen by rheumatology at that hospital earlier this month. Patient was witnessed to have seizure lasting 1 minute when she initially presented at ER in [facility] [place]. She was given Valium x1 then. Patient was treated for possible viral meningitis with acyclovir. She was also treated for pneumonia with a 7 days course of ceftriaxone there. Patient again still altered mental status, but slowly improving- brain MRI and head CT here in our ER was negative for any acute findings. LP has elevated total protein, otherwise appears negative. Vital stable. Lab shows a hemog lobin of 9.3 otherwise CBC and CMP within acceptable range. -CSF negative for HSV. Stopped acyclovir. -Follow-up RONI, dsDNA results, as well as CSF for autoimmune and paraneoplastic panels (send out) -Follow-up recommendations from infectious disease and neurology consults -continue her CellCept and prednisone. -PT and OT consults since she is still very weak on her feet, unable to fully ambulate. -Continue mechanical soft diet which patient appears to be tolerating now, follow-up further speech therapy recommendations #UTI - ESBL E Coli UTI without pyelonephritis. Will treat with nitrofurantoin. #Possible seizures: Again appeared to occur earlier this month at the [facility] in [facility] [place]. As well, on her flight back to [place], patient possibly had seizure activity on the plane-EEG results reviewed from [facility] performed on August 10, 2018. EEG yesterday here is without ongoing epileptiform activity. -Follow-up recommendations from neurology team, on Trileptal now, Ativan as needed # GI ppx -H2 fernando Dispo: Medically stable for discharge to ARU or SNF with 24 hour care. Result Diagram: 08/25/1839 08/25/18 0539 Results 24hrs Laboratory Tests Test 08/25/18 05:39 White Blood Count 4.4 L Red Blood Count 3.27 L Hemoglobin 9.6 L Hematocrit 29.5 L Mean Corpuscular Volume 90.2 Mean Corpuscular Hemoglobin 29.4 Mean Corpuscular Hemoglobin Concent 32.5 Red Cell Distribution Width 15.6 H Platelet Count 247 Mean Platelet Volume 9.7 Immature Granulocytes % 1.100 H Neutrophils % 68.9 Lymphocytes % 23.2 Monocytes % 6.4 Eosinophils % 0.2 Basophils % 0.2 Nucleated Red Blood Cells % 0.0 Immature Granulocytes # 0.050 H Neutrophils # 3.0 Lymphocytes # 1.0 Monocytes # 0.3 Eosinophils # 0.0 Basophils # 0.0 Nucleated Red Blood Cells # 0.0 Sodium Level 138 Potassium Level 3.8 Chloride Level 96 L Carbon Dioxide Level 31 Anion Gap 11 Blood Urea Nitrogen 8 Creatinine 0.51 Est Glomerular Filtrat Rate mL/min > 60 Glucose Level 88 Calcium Level 8.6 Phosphorus Level 4.5 Magnesium Level 2.0 Subjective 24 Hr Interval Summary Free Text/Dictation No acute overnight events. Patient awake, well appearing today. Able to sit up with physical therapy yesterday, still not ambulatory yet. Exam/Review of Systems Vital Signs Vitals Vital Signs Date Temp Pulse Resp B/P (MAP) Pulse Ox O2 O2 Flow FiO2 Time Delivery Rate 08/25/18 106 12:05 08/25/18 98.0 18 90/52 (65) 99 Room Air 11:20 Intake and Output 08/24/18 08/24/18 08/25/18 1515:00 23:00 07:00 IntakeIntake Total 1540 ml 500 ml OutputOutput Total 2900 ml 800 ml BalanceBalance -1360 ml -300 ml Exam Gen: Well developed young woman lying in bed, awake alert and responsive. NEURO: alert and oriented to name, time (year, month, day), location, and situation. HEENT:Pupils were equal round reactive to light Neck: No nuchal rigidity. Respiratory: Not using accessory muscles of respiration.Lungs were clear to auscultation bilaterally. No rhonchi. No rales. No wheezing. Cardiovascular: Regular rate regular rhythm.No murmurs. No rubs were appreciated.S1, S2 normal GI: Abdomen was soft. Nontender. Non Distended. No rebound. No guarding. Bowel sounds were present and normal. Muscle skeletal: Full range of motion of both the upper upper extremities, minimal movement of the bilateral lower extremities no assymetrical calf tenderness or swelling. Skin: No petechia, no purpura. No lesions on the palms or the soles of the feet. No maculopapular rash. Medications Medications Current Medications Albuterol/ Ipratropium (Duoneb) 3 ml Q2H RESP THERAPY PRN NEB SHORTNESS OF BREATH; Start 08/20/18 at 21:30 Lorazepam (Ativan) 1 mg Q2H PRN IV SEIZURES Last administered on 08/22/18 0 0:57; Admin Dose 1 MG; Start 08/21/18 at 11:30 Oxcarbazepine (Trileptal) 300 mg BID PO Last administered on 08/25/18 09:40; Admin Dose 300 MG; Start 08/22/18 at 09:00 Prednisone (Prednisone) 20 mg DAILY PO Last administered on 08/25/18 09:41; Admin Dose 20 MG; Start 08/22/18 at 12:00 Mycophenolate Mofetil (Cellcept) 500 mg BID PO Last administered on 08/25/18 11:14; Admin Dose 500 MG; Start 08/22/18 at 21:00 Nitrofurantoin Macrocrystals (Macrobid) 100 mg BID PO Last administered on 08/25/18 09:41; Admin Dose 100 MG; Start 08/23/18 at 21:00; Stop 08/30/18 at 09:01 Famotidine (Pepcid) 20 mg DAILY PO Last administered on 08/25/18 09:41; Admin Dose 20 MG; Start 08/24/18 at 09:00 NICHOLE GARCIA MD Aug 25, 2018 14:56
--- NOTE | 2018-08-25 15:29 | NUR ---
RYAN notes: This publicity writer reached out to YOHANA Pelaez, to discuss possible ARU transfer approval, Latanya stated she is still reviewing the records and will reach out to this publicity writer once a decision has been made, this publicity writer communicated to Latanya that the [facility] [employer] is willing to do a peer to peer with [facility] medical billing and coding specialist to facilitate information. Cher Edgar RNCM
--- NOTE | 2018-08-25 18:08 | NUR ---
EOSS: Pt. remained stable during shift. No acute events. Pt. ambulated with Physical Therapy today in the room. Plan for ARU discharge on hold at this time. Case management still awaiting for a decision regarding pt's transfer. Hourly rounding complete. All needs meet. Bed in lowest position. Bed alarm on. Family at bedside. Will continue to monitor and report care to oncoming shift.
[2018-08-26] VITALS (10 sets, daily range): BP systolic 97–107; BP diastolic 54–65; PULSE 88–102; RESP 18–22
--- NOTE | 2018-08-26 06:03 | NUR ---
END OF THE SHIFT:PT. IS AA,O X 3 ,SLOW REACTIVE BUT ABLE TO FOLLOW COMMANDS.NO DISTRESS/DISCOMFORT NOTED DURING THE SHIFT.FAMILY IS AT THE BEDSIDE.PLAN-DS PT TO ACUTE REHAB CENTER OR HOME WITH HOME HEALTH ARRANGEMENT.
[2018-08-26] MEDS: predniSONE 20 MG TAB PO SCH (08:32)
[2018-08-26] MEDS: OXCARBAZEPINE 300 MG TAB PO SCH ×2 (08:32→20:24)
[2018-08-26] MEDS: NITROFURANTOIN (SR) 100 MG CAP PO SCH ×2 (08:32→20:24)
[2018-08-26] MEDS: MYCOPHENOLATE 250 MG CAP PO SCH ×2 (08:32→20:24)
[2018-08-26] MEDS: FAMOTIDINE 20 MG TAB PO SCH (08:32)
--- NOTE | 2018-08-26 13:31 | CONS ---
Consult Date/Type/Reason Admit Date/Time Aug 20, 2018 at 19:48 Initial Consult Date 08/21/18 Type of Consultation: Rheum Requesting Provider: JAXON FERNÁNDEZ Date/Time of Note DATE: 08/26/18 TIME: 13:25 Subjective Alert. Denies pain. Wants to go home. Objective Vitals Vital Signs Date Temp Pulse Resp B/P (MAP) Pulse Ox O2 O2 Flow FiO2 Time Delivery Rate 08/26/18 88 12:01 08/26/18 98.0 21 106/57 96 Nasal 3.0 11:50 (73) Cannula Intake and Output 08/25/18 08/25/18 08/26/18 1515:00 23:00 07:00 IntakeIntake Total 650 ml 550 ml OutputOutput Total 2 ml BalanceBalance 648 ml 550 ml Exam GENERAL: No acute distress, alert and oriented SKIN: Without rashes or other lesions. HEENT: Without acute oral or ocular lesions noted. NECK: Without lymphadenopathy. CHEST: Clear to auscultation. HEART: Regular rate and rhythm without gallops or murmurs noted. ABDOMEN: Soft without mass or tenderness. MUSCULOSKELETAL: Joints with good range of motion without synovitis or tenderness. NEUROLOGIC: At present grossly intact Results/Medications Result Diagram: 08/25/18 0539 08/25/18 0539 Home Meds Reported Medications Prednisone* (Prednisone*) 10 Mg Tab, 10 MG PO BID, TAB 08/20/18 Hydroxychloroquine Sulfate* (Hydroxychloroquine Sulfate*) 200 Mg Tablet, 200 MG PO BID, TAB 08/20/18 Calcium Carbonate/Vitamin D3 (OYSTER SHELL 500 MG + VIT D TB) 1 Each Tablet, 1 EACH PO BID, TAB 08/20/18 Ferrous Sulfate* (Ferrous Sulfate*) 325 Mg Tabec, 325 MG PO DAILY, TAB 08/20/18 Medications Current Medications Albuterol/ Ipratropium (Duoneb) 3 ml Q2H RESP THERAPY PRN NEB SHORTNESS OF BREATH; Start 08/20/18 at 21:30 Lorazepam (Ativan) 1 mg Q2H PRN IV SEIZURES Last administered on 08/22/18at 00:57; Admin Dose 1 MG; Start 08/21/18 at 11:30 Oxcarbazepine (Trileptal) 300 mg BID PO Last administered on 1/24/19at 08:32; Admin Dose 300 MG; Start 08/22/18 at 09:00 Prednisone (Prednisone) 20 mg DAILY PO Last administered on 08/26/18 08:32; Admin Dose 20 MG; Start 08/22/18 at 12:00 Mycophenolate Mofetil (Cellcept) 500 mg BID PO Last administered on 08/26/18 08:32; Admin Dose 500 MG; Start 08/22/18 at 21:00 Nitrofurantoin Macrocrystals (Macrobid) 100 mg BID PO Last administered on 08/26/18 08:32; Admin Dose 100 MG; Start 08/23/18 at 21:00; Stop 08/30/18 at 09:01 Famotidine (Pepcid) 20 mg DAILY PO Last administered on 08/26/18 08:32; Admin Dose 20 MG; Start 08/24/18 at 09:00 Assessment/Plan Assessment/Plan (Daily) ASSESSMENT: 1. Recent altered mental status and seizure disorder. Unclear if related to central nervous system lupus versus infectious etiology. 2. Systemic lupus erythematosus by history. Prior to her trip to [facility], she was apparently in no major distress and no evidence of active renal involvement; however, she was on CellCept and some prednisone. 3. Anemia with hematocrit around 25 unclear if it relates to the inflammatory process versus other. RECOMMENDATIONS: 1. Continue CellCept 500 mg twice a day until reevaluated by her [employer] Supervisor as outpatient. 2. Continue Prednisone 20 mg daily until reevaluated by her [employer] Supervisor as outpatient. 3. I discussed with patient to call and make appt with her [employer] Supervisor for next week if possible, and with her PMD. She states she understands and will do. BERTO VERNON MD Aug 26, 2018 13:31
--- NOTE | 2018-08-26 14:58 | CONS ---
Assessment/Plan Assessment/Plan Hospital Course 22 F c/ reported Hx of SLE on immunomodulatory Tx...who is admitted to the [facility] ICU for evaluation and management of ams following recent seizures.. Notably, she recently traveled to [facility], where she developed a febrile illness that was thought consistent w/ pneumonia.. There was perhaps a superimposed aseptic meningitis in that context... MRI brain w/ and w/o contrast is unremarkable Repeat CSF evaluation is now unremarkable.. EEG is without ongoing epileptiform activity.. P: Continue Trileptal in the short term (~3 months) given report of repeated clinical seizures prior to this presentation.. Reorient as necessary Limit sedating medications where possible PT/OT as necessary Other management per primary She cannot drive... Will follow Result Diagram: 08/25/18 0539 08/25/18 0539 Consultation Date/Type/Reason Admit Date/Time Aug 20, 2018 at 19:48 Type of Consult Neurology Requesting Provider: JAXON FERNÁNDEZ Date/Time of Note DATE: 08/26/18 TIME: 14:57 24 HR Interval Summary Free Text/Dictation Continues telemetry monitoring. Pt states that she isn't sleeping well at night; walked around the unit with physical therapy today. No acute events reported. Exam Vital Signs Vitals Vital Signs Date Temp Pulse Resp B/P (MAP) Pulse Ox O2 O2 Flow FiO2 Time Delivery Rate 08/26/18 88 12:01 08/26/18 98.0 21 106/57 96 Nasal 3.0 11:50 (73) Cannula Intake and Output 08/25/18 08/25/18 08/26/18 1515:00 23:00 07:00 IntakeIntake Total 650 ml 550 ml OutputOutput Total 2 ml BalanceBalance 648 ml 550 ml Exam PE: Gen Appearance: No Apparent Distress HEENT: Normocephalic Cardiovascular: Regular rate Lungs: Clear bilaterally Abdomen: Soft Extremities: Dry NE: The patient was asleep though easily arousable to voice; oriented to self, month, place, and situation. Language was normal. Fund of knowledge was somewhat limited. Pupils were equal and reactive to light. There was no afferent pupillary defect. Visual severino were normal. Funduscopic examination was limited. Extra-ocular movements were full. Ptosis was absent. There was no nystagmus. Facial sensation was normal. Face was symmetric with normal strength. Hearing was intact. Palate movements were normal. Neck strength was normal. There was normal tongue bulk and speed of movement. Tone was normal. Muscle bulk was normal. I did not see fasciculations. Arms and legs were mildly weak, symmetric.. Vibration sensation was normal. Temperature and pinprick sensation was normal. Rapid alternating movements were normal. There was no dysmetria. There was no intention tremor. Pt was weak upon standing, without postural instability. Gait was deferred due to bedrest. Arm and leg reflexes were 2+ and symmetric. Chatman's sign was absent. Plantar responses were flexor. IRVIN MEEK NP Aug 26, 2018 14:58
--- NOTE | 2018-08-26 15:14 | CONS ---
Assessment/Plan Assessment/Plan Hospital Course (Demo Recall) No events. Patient is awake and looks comfortable, eating banana, no fevers Urine culture on admission grew E. coli ESBL Antimicrobials: Macrobid Physical examination: Well-nourished well-developed young woman who is alert in no distress. Head atraumatic normocephalic sclera nonicteric. Neck is supple. Chest rise symmetrical, breath sounds clear. Heart: S1-S2. Abdomen soft, bowel sounds present. Extremities without cyanosis. Skin: Pale, dry Assessment: 1. Aseptic meningitis 2. SLE per history, patient is on CellCept, rheumatology follows 3. Questionable seizure disorder 4. Status post acute encephalopathy, slowly improving Plan: Patient is stable, on appropriate antibiotics for UTI, continue PT, follow rheumatology recommendations Consultation Date/Type/Reason Admit Date/Time Aug 20, 2018 at 19:48 Initial Consult Date 08/21/18 Type of Consult id Requesting Provider: JAXON FERNÁNDEZ Date/Time of Note DATE: 08/26/18 TIME: 15:13 Exam/Review of Systems Exam Vitals Vital Signs Date Temp Pulse Resp B/P (MAP) Pulse Ox O2 O2 Flow FiO2 Time Delivery Rate 08/26/18 88 12:01 08/26/18 98.0 21 106/57 96 Nasal 3.0 11:50 (73) Cannula Intake and Output 08/25/18 08/25/18 08/26/18 1414:59 22:59 06:59 IntakeIntake Total 650 ml 550 ml OutputOutput Total 2 ml BalanceBalance 648 ml 550 ml Results Result Diagram: 08/25/18 0539 08/25/18 0539 JERO SINGH NP Aug 26, 2018 15:14
--- NOTE | 2018-08-26 15:52 | NUR ---
CM notes: Per [facility] ARU liason x [phone] patient has been accepted to ARU awaiting for bed to open up which he anticipates will be today, bedside nurse aware. Cher Edgar, RNCM x [phone]
--- NOTE | 2018-08-26 18:21 | DS ---
Date/Time of Note Date/Time of Note DATE: 08/26/18 TIME: 18:13 Discharge Summary Admission/Discharge Info Admit Date/Time Aug 20, 2018 at 19:48 Discharge Date/Time Aug 26, 2018 Discharge Diagnosis Aseptic meningoencephalitis Patient Condition: Good Consults Neurology Rheumatology Infectious disease Pulmonary and critical care Procedures None Hx of Present Illness This is a 22-year-old female with a history of lupus on CellCept, noncompliant who was initially admitted in the hospital at [facility] between August 03 and August 19 for altered mentation. Patient had CT of the head as well as MRI which was nondiagnostic. Lumbar puncture shows opening pressure of 26, elevated protein and decreased glucose. Rheumatologic workup shows a decreased C3 and C4. Patient was seen by rheumatology and was treated with high-dose Solu-Medrol and was placed on CellCept. Patient also had a seizure in the ER at [place] lasting 1 minute. At that time she was given Valium. Patient was also treated for viral meningitis with acyclovir and also for pneumonia while she was there. Reportedly a week prior to presentation to the hospital she had a sore throat which was thought to be of viral etiology. Patient arrived to [facility] accompanied by her doctor and the nurse. From there patient was transported to [place] per her primary doctor Dr. Cuellar recommendations since she is capitated here. Patient was brought from [facility] with an NG tube in place. She presents the ER, patient was confused and agitated. Initial vitals stable. Her CBC and CMP shows a hemoglobin of 9.3 otherwise within acceptable range. Head CT without acute findings. Hospital Course Workup included LP which was grossly normal with mildly elevated protein. HSV I and II were negative. RONI was elevated 1:320. MRI brain w/ and w/o contrast was unremarkable and EEG showed now evidence of seizures. She didn't have any seizures after admission, initially she was very lethargic but this resolved after several days. Initially she was on broad spectrum vanc, gent, cefepime. Blood and CSF cultures negative, urine culture grew out ESBL E coli sensitive to macrobid. So she was tapered down to complete a course of macrobid. Rheumatology recommended she continue CellCept and also started prednisone 40. 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 Neurology continued her AEDs. She was very deconditioned and is barely able to sit up and cannot walk. Plan to discharge to acute rehab unit. Home Meds Reported Medications Prednisone* (Prednisone*) 10 Mg Tab, 10 MG PO BID, TAB 08/20/18 Hydroxychloroquine Sulfate* (Hydroxychloroquine Sulfate*) 200 Mg Tablet, 200 MG PO BID, TAB 08/20/18 Calcium Carbonate/Vitamin D3 (OYSTER SHELL 500 MG + VIT D TB) 1 Each Tablet, 1 EACH PO BID, TAB 08/20/18 Ferrous Sulfate* (Ferrous Sulfate*) 325 Mg Tabec, 325 MG PO DAILY, TAB 08/20/18 Primary Care Provider Not On Staff Doctor Time spent on discharge: > 30 minutes NICHOLE GARCIA MD Aug 26, 2018 18:21
--- NOTE | 2018-08-26 18:37 | NUR ---
EOSS Patient is alert, oriented x4. Respiration even and unlabored. No SOB or desaturation noted. On room air, Denies pain. Ambulatory with assistance, Very fall risk while walking. Pending ARU discharge.
--- NOTE | 2018-08-26 20:55 | NUR ---
Patient transferred from room 505 to [facility] room 4417B. Report given to CAROLANN Gottlieb. Patient is A&0 X 3-4, sinus rhythm on the monitor. Patient is on RA, no S/S of distress. Patient denies pain. On isolation for ESBL of the urine. personnel monitor removed. IV's left in place. All belongings taken with patient and family. All paperwork and medication reconciliation sent with discharge packet.
== END 2018-08-26 21:10 | DRG 97 ==
LOC: E/R 16:25 → ICU 19:48 → TEL 08-22 12:33
PROVIDERS: ADMIT Internal Medicine; ATTEND Internal Medicine
PROC: 009U3ZX Drainage of Spinal Canal, Percutaneous Approach, Diagnostic (ICD-10-PCS; principal; 2018-08-20)
DX: G04.81 Other encephalitis and encephalomyelitis (principal); G03.0 Nonpyogenic meningitis; N39.0 Urinary tract infection, site not specified; R56.9 Unspecified convulsions; M32.9 Systemic lupus erythematosus, unspecified; B96.20 Unspecified Escherichia coli [E. coli] as the cause of diseases classified elsewhere; Z16.12 Extended spectrum beta lactamase (ESBL) resistance; R13.10 Dysphagia, unspecified; D64.9 Anemia, unspecified; Z91.14 Patient's other noncompliance with medication regimen
CPT/HCPCS: 36415; 36600; 70450; 70553; 71045; 76856; 80048; 80051; 80053; 80170; 80185; 80202; 80307; 81001; 82150; 82310; 82565; 82728; 82803; 82945; 82947; 83540; 83605; 83615; 83690; 83735; 84100; 84157; 84466; 84484; 84520; 84703; 85014; 85018; 85025; 85045; 85610; 85730; 86038; 86160; 86226; 86703; 86704; 86709; 86803; 87040; 87070; 87086; 87252; 87340; 87400; 87529; 89051; 92526; 92610; 93005; 93970; 95819; 96374; 96375; 97110; 97116; 97162; 97167; 97530; 97535; J0133; J0692; J1100; J1170; J1200; J1580; J1630; J1956; J2060; J3360; J3370; J3480; J7030; J7042; J7512; J7517

== ENCOUNTER 2018-08-26 19:02 | Inpatient (IN) | payer OTHER ==
[~2018-08-26] VITALS: Ht 160 cm; Wt 50.2 kg
[~2018-08-26 19:02] MED LIST: CALC1TAB93 PO; FER325 PO; HYDR200T39 PO; PRED10TA PO
[2018-08-26 21:30] VITALS: Ht 160 cm; Wt 50.2 kg
[2018-08-26 22:00] VITALS: BP 122/62; PULSE 88; RESP 18
--- NOTE | 2018-08-26 23:30 | NUR ---
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 Pt was brought to unit via hospital bed accompanied by family member. Patient is alert & oriented x3. She is able to make needs known. Her primary language is Palestinian and she also speaks arabic. She is continent both bowel and bladder. Admission assessment done. Oriented patient to surroundings & verbalized understanding. Reviewed medication with Dr. Shepard with orders noted and carried out. Will continue to monitor patient.
[2018-08-27] MEDS ORDERED: ACETAMINOPHEN 325 MG TAB PO PRN
[2018-08-27] MEDS ORDERED: BISACODYL 10 MG SUPP PR PRN
[2018-08-27] MEDS ORDERED: MAGNESIUM HYDROXIDE 30ML CUP PO PRN
[2018-08-27] MEDS ORDERED: LACTULOSE 30ML CUP PO PRN
[2018-08-27 02:00] VITALS: BP 118/65; PULSE 85; RESP 18
[2018-08-27] MEDS ORDERED: LORAZEPAM 2 MG INJ IV PRN (04:00)
--- NOTE | 2018-08-27 04:20 | NUR ---
Pt crying at this time, she is restless, anxious and agitated. Pt kept saying that she wanted to go home. Brother and Mother at bedside. Offered PRN Ativan for anxiety but pt kept refusing. Will continue to monitor patient.
[2018-08-27 07:00] VITALS: BP 108/69; PULSE 98; RESP 18
--- NOTE | 2018-08-27 07:15 | NUR ---
Pt stable at this time with no acute distress noted. Pt did not sleep at all last night. family members remained at bedside with patients. Patient has low airloss mattress but pt refused to inflate it. Offered if pt wants regular bed but pt still refused. Seizure precaution observed. Endorsed to Am nurse to followup padded side rails. Hourly roundings done. Bed alarm activated for safety. Call ligth and bedside table within reach. Endorse to AM nurse.
[2018-08-27] MEDS ORDERED: FAMOTIDINE 20 MG TAB PO SCH (09:00)
[2018-08-27] MEDS ORDERED: DOCUSATE SODIUM 100 MG CAP PO SCH (09:00)
[2018-08-27] MEDS ORDERED: FERROUS SULFATE (EC) 325 MG TAB PO SCH (09:00)
[2018-08-27] MEDS ORDERED: NITROFURANTOIN (SR) 100 MG CAP PO SCH (09:00)
[2018-08-27] MEDS ORDERED: CALCIUM/VITAMIN D (500/200) TAB PO SCH (09:00)
[2018-08-27] MEDS: predniSONE 20 MG TAB PO SCH (09:15)
[2018-08-27] MEDS: OXCARBAZEPINE 300 MG TAB PO SCH ×2 (09:15→20:00)
[2018-08-27] MEDS: MYCOPHENOLATE 250 MG CAP PO SCH ×2 (09:15→20:01)
[2018-08-27] MEDS: BUSPIRONE 5 MG TAB PO SCH ×2 (10:00→20:01)
--- NOTE | 2018-08-27 11:59 | CONS ---
DATE OF ADMISSION: 08/26/2018 DATE OF CONSULTATION: 08/27/2018 TYPE OF CONSULTATION: Rehabilitation post-admission physician evaluation. DATE OF ADMISSION TO THE REHABILITATION UNIT: 08/26/2018. DATE OF CONSULTATION: 08/27/2018. REHABILITATION IMPAIRMENT CATEGORY: Infectious encephalopathy. ACTIVE COMORBIDITIES: 1. Seizure disorder. 2. Dysphagia. 3. Systemic lupus erythematosus. 4. Pneumonia. 5. Impairments in self-care and mobility and cognition. HISTORY OF PRESENT ILLNESS: The patient is a 22-year-old woman with a history of lupus who apparent ly was noncompliant with medications and had a recent trip to [facility] when she was noted to have con fusion and seizure episode. The patient was felt likely to have viral infection and was admitted. H er cognition continued to remain impaired, and a lumbar puncture was performed with elevated pressure . The patient was started on Keppra and treated empirically for viral meningitis. The patient noted to have significant impairments in self-care and mobility as compared to baseline, and has been jase red to transfer to the rehabilitation unit for comprehensive interdisciplinary rehab care. FUNCTIONAL HISTORY: Prior to recent events, she was independent in self-care tasks and mobility. Cu rrently, she requires minimal assist for self-care and mobility tasks. 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 PAST MEDICAL HISTORY: Systemic lupus erythematosus. CURRENT MEDICATIONS: Please see medication list. PHYSICAL EXAMINATION: VITAL SIGNS: She is currently afebrile with stable vital signs. HEENT: Extraocular motion intact. Oropharynx clear. NECK: Supple. LUNGS: Clear anteriorly. CARDIAC: S1, S2. ABDOMEN: Soft, nontender. Positive bowel sounds. NEUROLOGIC: She is awake and alert. She is oriented to person only. She will follow simple 1-step commands. She demonstrates antigravity strength in bilateral upper extremity and lower extremity. PLAN: The patient has been admitted for comprehensive interdisciplinary acute rehab and is anticipat ed to tolerate 3 hours of daily therapy in divided doses for at least 5/7 days a week. The treatment plan will include: 1. Physical therapy to focus on bed mobility, transfers, and household ambulation, with the goal of having the patient reach a supervised level. 2. Occupational therapy to focus on hygiene, grooming, dressing, bathing, and toileting activities, with the goal of having the patient reach a supervised level. 3. Full interdisciplinary cognitive approach to include physical therapy and occupational therapy fo r cognitive carryover of functional tasks; neuropsychology to oversee cognitive program with full cog nitive assessment; the patient would benefit from speech therapy for comprehensive interdisciplinary cognitive assessment in addition to dysphagia management. ESTIMATED LENGTH OF STAY: 7 days. DISPOSITION GOAL: Home with family. REHABILITATION BARRIER: Cognition. INTERVENTION FOR BARRIER: Interdisciplinary approach. I acknowledge that I performed a full physical examination on this patient within 24 hours of admissi on to the rehabilitation unit and believe the patient is a good candidate for comprehensive interdisc iplinary rehab care, and is anticipated to make reasonable goals in a reasonable period of time as ou tlined above. Dictated By: ODALYS HUSSEIN/NTS Conf#: [id number] DID#: [id number] CC: ODALYS SHULTZ MD;*EndCC*
[2018-08-27 14:00] VITALS: BP 110/70; PULSE 88; RESP 18
--- NOTE | 2018-08-27 14:00 | NUR ---
Received patient from previous shift in stable condition. Patient appears to be anxious and wanting to go home. Spoke with the patient and explained that she needs to be evaluated first and talk to the doctor about her plan of wanting to go home. Patient was agreeable and took her morning medications at 0915. At 1000 patient became anxious again and saying that she wants to go home. Dr. Shay spoke with the patient and johns Addendum: 08/27/18 at 1522 by RONI GAVIRIA RN At 1000 patient became anxious again and saying that she wants to go home. Dr. Shay spoke with the patient and has new order of Dell CERDA. At 1132 contacted Arelis (MARIELA) to update regarding the patient but said that Dr. Christianson will be the one rounding on his patients. At [address] Christianson what time he'll be rounding on his patient and said that "I'll be there". At [address] Christianson that the patient doesn't want to eat, drink or take her medications and only wants to go home. Per Dr. Christianson, Dr. Rodriguez will be rounding on his patients.
--- NOTE | 2018-08-27 15:56 | PSY ---
Date/Time of Note Date/Time of Note DATE: 08/27/18 TIME: 15:51 Psychiatric Subjective Eval Consent Pt consented to telemedicine: Yes Subjective Evaluation Patient location: inpatient Chief Complaint: "I wanna go home or I will kill myself" History of present illness 22 yo female with hx SLE and meningeal encephalitis transferred to a rehab floor and demanding to go home, refusing meds, PT/OT , crying, refusing fluids and meals. Mother at bedside, Slovak speak , stated to RN,s he will take her home after the pt will be ready. Pt is tearful, irritable, says she will kill herself because she wants to go home. She says she will kill herself "any possible way". Uncooperative, sobbing. Says she will not do anything if held at the hospital. Pt does not know why she is in the hospital; she does not know why she was admitted and why she is in the rehab now. Past psychiatric history denies Medical history Problems Medical Problems: (1) Altered level of consciousness Status: Acute (2) Encephalopathy acute Status: Acute Allergies: Coded Allergies: No Known Allergy (Unverified , 08/25/18) Substance Abuse Substance use: No known substance abuse Social History Marital status: Occupation/[employer]: works at a [employer] shop Psychiatric Objective Eval Review of Systems: Review of Systems: Not Applicable Physical Examination: Physical Examination: Not Applicable Mental Status Examination: Appearance: Disheveled Eye Contact: Good Psychomotor Activity: Agitated Behavior: Hostile, Agitated, Other (regressed, child like) Speech: Clear AFFECT: Anxious Mood: Irritable Though Process: Perseverative Suicidal: Yes Orientation: x4 Cognition: Alert Insight: Impared Judgement: Impared Laboratory Results Laboratory Tests Test 08/26/18 21:30 08/27/18 05:56 Urine Color YELLOW Urine Clarity CLEAR Urine pH 8.0 Urine Specific [place] 1.010 Urine Ketones NEGATIVE mg/dL Urine Nitrite NEGATIVE mg/dL Urine Bilirubin NEGATIVE mg/dL Urine Urobilinogen NEGATIVE mg/dL Urine Leukocyte Esterase 1+ Camilla/ul Urine Microscopic RBC 12 /HPF Urine Microscopic WBC 13 /HPF Urine Squamous Epithelial Cells FEW /HPF Urine Bacteria MANY /HPF Urine Hemoglobin 2+ mg/dL Urine Glucose NEGATIVE mg/dL Urine Total Protein NEGATIVE mg/dl White Blood Count 4.9 10^3/ul Red Blood Count 3.37 10^6/ul Hemoglobin 10.0 g/dl Hematocrit 30.5 % Mean Corpuscular Volume 90.5 fl Mean Corpuscular Hemoglobin 29.7 pg Mean Corpuscular Hemoglobin Concent 32.8 g/dl Red Cell Distribution Width 15.9 % Platelet Count 250 10^3/UL Mean Platelet Volume 9.9 fl Immature Granulocytes % 0.600 % Neutrophils % 72.0 % Lymphocytes % 21.2 % Monocytes % 5.8 % Eosinophils % 0.2 % Basophils % 0.2 % Nucleated Red Blood Cells % 0.0 /100WBC Immature Granulocytes # 0.030 10^3/ul Neutrophils # 3.5 10^3/ul Lymphocytes # 1.0 10^3/ul Monocytes # 0.3 10^3/ul Eosinophils # 0.0 10^3/ul Basophils # 0.0 10^3/ul Nucleated Red Blood Cells # 0.0 10^3/ul Sodium Level 138 mmol/L Potassium Level 3.6 mmol/L Chloride Level 99 mmol/L Carbon Dioxide Level 29 mmol/L Anion Gap 10 Blood Urea Nitrogen 18 mg/dl Creatinine 0.56 mg/dl Est Glomerular Filtrat Rate mL/min > 60 mL/min Glucose Level 96 mg/dl Calcium Level 8.9 mg/dl Total Bilirubin 0.0 mg/dl Direct Bilirubin 0.00 mg/dl Indirect Bilirubin 0.0 mg/dl Aspartate Amino Transf (AST/SGOT) 23 IU/L Alanine Aminotransferase (ALT/SGPT) 30 IU/L Alkaline Phosphatase 97 IU/L Total Protein 6.6 g/dl Albumin 3.6 g/dl Globulin 3.00 g/dl Albumin/Globulin Ratio 1.20 Assessment and Plan Assessment/Diagnosis Diagnosis ADJUSTMENT DISORDER WITH ANXIETY AND DEPRESSION. Recommendation/Plan Medication Management ATIVAN 1 MG + zYRPEXA 5 MG+ BEANDRYL 25 MG PO OR IM PRN Q 12 HRS AGITATION. Multiple antipsychotics: Yes Discharge Disposition: Psychiatric inpatient Legal Status: Place involuntary hold Other D/W RN. KISHORE KENNY MD Aug 27, 2018 15:56
--- NOTE | 2018-08-27 15:57 | NUR ---
SOCIAL WORK NOTE: This telegraphic typewriter operator chief met w/ pt and pt mother (cayman islander speaking), beam racker was used for discussion with mother. Pt and mother confirmed pt lives w/ her (unable to understand husbands name), pt states that her is at home and does not have a phone. Pt mother reports despite pt adamant about wanting to go home, pt states that she will not participate in therapy, or eating until she goes home. Patient AAOx3, became angry when discussing stay within [facility], reports "I want to go home, if not i will kill myself". This telegraphic typewriter operator chief discussed with Motor Vehicle Examiner Dr. Shay, requested telepsych and sitter. RN coordinated sitter at bedside. This social welfare clerk picked up telepsych machine from nursing office, discussed w/ telepsych Dr. Figueroa and a telepsych eval took place at bedside. Dr. Figueroa states that pt is unsafe to go home as pt verbalized suicidal ideation, reports "I will do anything to kill myself if i cant go home today". As per Motor Vehicle Examiner pt will remain on 1:1 and will be re-evaluated tomorrow.
--- NOTE | 2018-08-27 16:25 | PN ---
Date/Time of Note Date/Time of Note DATE: 08/27/18 TIME: 16:22 Assessment/Plan VTE Prophylaxis Risk score (from Ns)>0 risk: 1 SCD applied (from Ns): No SCD contraindicated: low risk/ambulating Pharmacological prophylaxis: heparin Lines/Catheters IV Catheter Type (from Nrs): Saline Lock Assessment/Plan Hospital Course 22 yo male wiht lupus who [facility] episode of aseptic meningitis Lupus: - Management per rheumatology: cellcept and prednisone Seizures: - Oxcarbazapine Depression/suicidality: - Inpatinet psych hold per [employer], 1:1 for safety Aseptic meningitis: - supporitve care Result Diagram: 08/27/18 0556 08/27/18 0556 Results 24hrs Laboratory Tests Test 08/26/18 21:30 08/27/18 05:56 Urine Color YELLOW Urine Clarity CLEAR Urine pH 8.0 Urine Specific [place] 1.010 Urine Ketones NEGATIVE Urine Nitrite NEGATIVE Urine Bilirubin NEGATIVE Urine Urobilinogen NEGATIVE Urine Leukocyte Esterase 1+ H Urine Microscopic RBC 12 H Urine Microscopic WBC 13 H Urine Squamous Epithelial Cells FEW Urine Bacteria MANY A Urine Hemoglobin 2+ H Urine Glucose NEGATIVE Urine Total Protein NEGATIVE White Blood Count 4.9 Red Blood Count 3.37 L Hemoglobin 10.0 L Hematocrit 30.5 L Mean Corpuscular Volume 90.5 Mean Corpuscular Hemoglobin 29.7 Mean Corpuscular Hemoglobin Concent 32.8 Red Cell Distribution Width 15.9 H Platelet Count 250 Mean Platelet Volume 9.9 Immature Granulocytes % 0.600 H Neutrophils % 72.0 Lymphocytes % 21.2 Monocytes % 5.8 Eosinophils % 0.2 Basophils % 0.2 Nucleated Red Blood Cells % 0.0 Immature Granulocytes # 0.030 Neutrophils # 3.5 Lymphocytes # 1.0 Monocytes # 0.3 Eosinophils # 0.0 Basophils # 0.0 Nucleated Red Blood Cells # 0.0 Sodium Level 138 Potassium Level 3.6 Chloride Level 99 Carbon Dioxide Level 29 Anion Gap 10 Blood Urea Nitrogen 18 Creatinine 0.56 Est Glomerular Filtrat Rate mL/min > 60 Glucose Level 96 Calcium Level 8.9 Total Bilirubin 0.0 L Direct Bilirubin 0.00 Indirect Bilirubin 0.0 Aspartate Amino Transf (AST/SGOT) 23 Alanine Aminotransferase (ALT/SGPT) 30 Alkaline Phosphatase 97 Total Protein 6.6 Albumin 3.6 Globulin 3.00 Albumin/Globulin Ratio 1.20 Subjective 24 Hr Interval Summary Free Text/Dictation As I walked into room, patient was pacing around, saying she wanted to leave. This was my first encounter. As I began speaking to her SW came in with monitor for telepsych evaluation Exam/Review of Systems Exam Vitals Vital Signs Date Temp Pulse Resp B/P (MAP) Pulse Ox O2 O2 Flow FiO2 Time Delivery Rate 08/27/18 97.7 98 18 108/69 99 Room Air 07:00 (82) Constitutional: alert, oriented, well developed Psych: no complaints, nl mood/affect Head: normocephalic, atraumatic Eyes: nl conjunctiva, EOMI, nl lids, nl sclera, PERRL ENMT: nl external ears & nose, nl lips & teeth, nl nasal mucosa & septum Neck: supple, non-tender Respiratory: clear to auscultation, normal air movement Cardiovascular: regular rate and rhythm, nl pulses Gastrointestinal: soft, nl liver, spleen, non-tender Musculoskeletal: nl extremities to inspection, nl gait and stance Extremities: normal pulses Neurological: STUDENT ACTIVITIES DIRECTOR II-XII intact, nl mental status, nl speech, nl strength Skin: nl turgor; No rash or lesions Lymph: nl lymph nodes Results Results 24hrs Laboratory Tests Test 08/26/18 21:30 08/27/18 05:56 Urine Color YELLOW Urine Clarity CLEAR Urine pH 8.0 Urine Specific [place] 1.010 Urine Ketones NEGATIVE Urine Nitrite NEGATIVE Urine Bilirubin NEGATIVE Urine Urobilinogen NEGATIVE Urine Leukocyte Esterase 1+ H Urine Microscopic RBC 12 H Urine Microscopic WBC 13 H Urine Squamous Epithelial Cells FEW Urine Bacteria MANY A Urine Hemoglobin 2+ H Urine Glucose NEGATIVE Urine Total Protein NEGATIVE White Blood Count 4.9 Red Blood Count 3.37 L Hemoglobin 10.0 L Hematocrit 30.5 L Mean Corpuscular Volume 90.5 Mean Corpuscular Hemoglobin 29.7 Mean Corpuscular Hemoglobin Concent 32.8 Red Cell Distribution Width 15.9 H Platelet Count 250 Mean Platelet Volume 9.9 Immature Granulocytes % 0.600 H Neutrophils % 72.0 Lymphocytes % 21.2 Monocytes % 5.8 Eosinophils % 0.2 Basophils % 0.2 Nucleated Red Blood Cells % 0.0 Immature Granulocytes # 0.030 Neutrophils # 3.5 Lymphocytes # 1.0 Monocytes # 0.3 Eosinophils # 0.0 Basophils # 0.0 Nucleated Red Blood Cells # 0.0 Sodium Level 138 Potassium Level 3.6 Chloride Level 99 Carbon Dioxide Level 29 Anion Gap 10 Blood Urea Nitrogen 18 Creatinine 0.56 Est Glomerular Filtrat Rate mL/min > 60 Glucose Level 96 Calcium Level 8.9 Total Bilirubin 0.0 L Direct Bilirubin 0.00 Indirect Bilirubin 0.0 Aspartate Amino Transf (AST/SGOT) 23 Alanine Aminotransferase (ALT/SGPT) 30 Alkaline Phosphatase 97 Total Protein 6.6 Albumin 3.6 Globulin 3.00 Albumin/Globulin Ratio 1.20 Medications Medication Current Medications Docusate Sodium (Colace) 100 mg BID PO Last administered on 08/27/18 09:15; Admin Dose 100 MG; Start 08/27/18 at 09:00 Senna (Senokot) 1 tab HS PO ; Start 08/27/18 at 21:00 Magnesium Hydroxide (Milk Of Mag) 30 ml BID PRN PO constipation; Start 08/27/18 at 00:00 Lactulose (Enulose) 20 gm DAILY PRN PO constipation; Start 08/27/18 at 00:00 Bisacodyl (Dulcolax Supp) 10 mg DAILY PRN [place] constipation; Start 08/27/18 at 00:00 Acetaminophen (Tylenol Tab) 650 mg Q4H PRN PO PAIN LEVEL 1-3 OR FEVER; Start 08/27/18 at 00:00 Ferrous Sulfate (Ferrous Sulfate (Ec)) 325 mg DAILY PO Last administered on 08/27/18 09:15; Admin Dose 325 MG; Start 08/27/18 at 09:00 Famotidine (Pepcid) 20 mg DAILY PO Last administered on 08/27/18 09:15; Admin Dose 20 MG; Start 08/27/18 at 09:00 Lorazepam (Ativan) 1 mg Q2H PRN IV ANXIETY; Start 08/27/18 at 04:00 Mycophenolate Mofetil (Cellcept) 500 mg BID PO Last administered on 08/27/18 09:15; Admin Dose 500 MG; Start 08/27/18 at 09:00 Nitrofurantoin Macrocrystals (Macrobid) 100 mg BID PO Last administered on 08/27/18 09:15; Admin Dose 100 MG; Start 08/27/18 at 09:00; Stop 08/29/18 at 22:00 Oxcarbazepine (Trileptal) 300 mg BID PO Last administered on 08/27/18 09:15; Admin Dose 300 MG; Start 08/27/18 at 09:00 Prednisone (Prednisone) 20 mg DAILY PO Last administered on 08/27/18at 09:15; Admin Dose 20 MG; Start 08/27/18 at 09:00 Calcium/Vitamin D (Oyster Shell/ Vit-D (500/200)) 1 tab BID PO Last administered on 08/27/18 09:15; Admin Dose 1 TAB; Start 08/27/18 at 09:00 Buspirone HCl (Buspar) 10 mg BID PO ; Start 08/27/18 at 10:00 IGOR NOYOLA MD Aug 27, 2018 16:25
--- NOTE | 2018-08-27 18:15 | NUR ---
Patient was very agitated and wants to go home. Verbalized suicidal ideation. Dr. Shay aware with order for 1:1 sitter and Telepsych. Psych MD spoke with the patient via Telepsych machine and evaluated the patient. Dr. Rodriguez aware who is covering for Dr. Christianson regarding the situation and Psych MD's recommendation. Brad Nurse Asphalt Paving Machine Operator and Jeremy Nursing Design Engineering Intern at patient's bedside and spoke with the patient using an manager lean (#[id number]). Despite the lengthy conversation pt insist of going home but eventually decided to stay only for tonight and still wants to go home tomorrow. Psych consult for Siri RELASTER was ordered. Family remains at bedside and still on 1:1 sitter for safety. Will continue to monitor patient.
--- NOTE | 2018-08-27 19:47 | NUR ---
Seizure pad not available per [facility]. Patient remains anxious and wants to go home despite explanation. Remains on 1:1 sitter. Endorsed to next shift.
[2018-08-27] MEDS ORDERED: traZODone 50 MG TAB PO ONE (20:00)
--- NOTE | 2018-08-27 20:00 | NUR ---
Patient noted with increasing agitation. She is noted to be restless & crying. Family members at bedside. Pt kept saying that she wanted to go to sleep. Offered PRN Ativan IV but refused. Per pt, it does not work and kept refusing. Notified Dr. Shepard with orders noted and carried out. Pt given Trazodone 25mg x1 as ordered. Will continue to monitor patient.
[2018-08-27] MEDS ORDERED: SENNA TAB PO SCH (21:00)
[2018-08-27] MEDS ORDERED: LORAZEPAM 1 MG TAB PO ONE (21:30)
--- NOTE | 2018-08-27 21:31 | NUR ---
Pt still awake and noted to be crying. She is still agitated and anxious, kept saying that she still could not sleep and nothing is working. Family members and 1:1 sitter at bedside. Offered again PRN Ativan IV but still refused, she said she wanted a pill form. Notified Dr. Shepard with orders to give a one time order of Ativan 1mg PO. Pt medicated as ordered. Pt was able to sleep after medication was given. Will continue to monitor patient.
--- NOTE | 2018-08-28 02:42 | NUR ---
Pt able to sleep for a few hours. Pt woke up and starting to get restless & agitated again. Pt requesting medication to help her go back to sleep. Notified Dr. Shepard and with orders to change Ativan 1mg IV to PO instead. Medicated pt with PRN Ativan 1mg PO as ordered. 1:1 sitter and family at bedside. Will continue to monitor patient.
[2018-08-28] MEDS: LORAZEPAM 1 MG TAB PO PRN ×2 (02:45→23:12)
--- NOTE | 2018-08-28 07:43 | NUR ---
Pt still refused low airloss mattress, prefers deflated. Will endorse to AM nurse to have regular bed instead.
[2018-08-28 08:50] VITALS: BP 113/63; PULSE 101; RESP 18
[2018-08-28] MEDS: OXCARBAZEPINE 300 MG TAB PO SCH ×2 (09:05→20:10)
[2018-08-28] MEDS: BUSPIRONE 5 MG TAB PO SCH ×2 (09:05→20:10)
[2018-08-28] MEDS: predniSONE 20 MG TAB PO SCH (09:06)
[2018-08-28] MEDS: MYCOPHENOLATE 250 MG CAP PO SCH ×2 (09:08→20:09)
--- NOTE | 2018-08-28 09:54 | PN ---
Date/Time of Note Date/Time of Note DATE: 08/28/18 TIME: 09:48 Subjective Patient was quite agitated yesterday afternoon, and refused medications and expressed S.I. stating"I want to if I can't go home". Currently calm, participating in therapies Objective Vital Signs Date Temp Pulse Resp B/P (MAP) Pulse Ox O2 O2 Flow FiO2 Time Delivery Rate 08/28/18 98.0 101 18 113/63 100 Room Air 08:50 (80) Intake and Output 08/27/18 08/27/18 08/28/18 1515:00 23:00 07:00 IntakeIntake Total 500 ml 1200 ml OutputOutput Total 800 ml 2 ml BalanceBalance 500 ml 400 ml -2 ml Exam pulm-cta working with PT Results/Medications Result Diagram: 08/27/18 0556 08/27/18 0556 Medications Current Medications Magnesium Hydroxide (Milk Of Mag) 30 ml BID PRN PO constipation; Start 08/27/18 at 00:00 Lactulose (Enulose) 20 gm DAILY PRN PO constipation; Start 08/27/18 at 00:00 Bisacodyl (Dulcolax Supp) 10 mg DAILY PRN [place] constipation; Start 08/27/18 at 00:00 Acetaminophen (Tylenol Tab) 650 mg Q4H PRN PO PAIN LEVEL 1-3 OR FEVER; Start 08/27/18 at 00:00 Mycophenolate Mofetil (Cellcept) 500 mg BID PO Last administered on 08/28/18at 09:08; Admin Dose 500 MG; Start 08/27/18 at 09:00 Oxcarbazepine (Trileptal) 300 mg BID PO Last administered on 08/28/18at 09:05; Admin Dose 300 MG; Start 08/27/18 at 09:00 Prednisone (Prednisone) 20 mg DAILY PO Last administered on 08/28/18at 09:06; Admin Dose 20 MG; Start 08/27/18 at 09:00 Buspirone HCl (Buspar) 10 mg BID PO Last administered on 08/28/18at 09:05; Admin Dose 10 MG; Start 08/27/18 at 10:00 Lorazepam (Ativan) 1 mg Q2H PRN PO ANXIETY Last administered on 08/28/18at 02:45; Admin Dose 1 MG; Start 08/28/18 at 03:00 Assessment/Plan Additional Assessment/Plan Rehab- Infectious encephalopathy. Patient would benefit from interdisciplinary rehab program, however may need to focus on caregiver training with discharge home and home health cognitive follow up. Currently she is agreeable to therapy activities, and family requesting continued therapies Psych- Denies S.I. today. Appreciate resin coater follow up. Patient without SI, and agreeable to activities Dispo- Home upon completion of caregiver training, and home health therapies arranged Seizure disorder. Dysphagia-tolerating current diet Systemic lupus erythematosus-continue current meds Pneumonia-pulm stable ODALYS SHULTZ MD Aug 28, 2018 09:54
--- NOTE | 2018-08-28 10:25 | NUR ---
RN NOTES Patient was just seen by MARIELA Horner for suicidal ideation/thoughts. Translation services used, water plant pump operator supervisor Andrew, code is Joyce. Patient denies any history of depression or Psychiatric illness, denies any suicidal ideation/thoughts, denies hearing voices as well. Patient was educated by WOODWORKING MACHINE FEEDER to participate in the treatment and listen to health staff as well to facilitate fast recovery and then eventually safe discharge. Patient verbalized understanding. Addendum: 08/28/18 at 1339 by ANA MARIA KATHLEEN RN RN NOTES Patient refused IV reinsertion x 2, MARIELA Phillips was made aware upon rounds and gave an order for Cipro 500 mg IV BID. Will try to encourage IV reinsertion again.
--- NOTE | 2018-08-28 10:28 | PSY ---
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 Patient and mother at French speaking, however patient understands and able to communicate in some Lebanese. French referral agent service was used and patient stated she feels better today. She denies feeling of hopelessness and helplessness, denies family history of mental illness, denies active suicidal thoughts, she denies auditory hallucination and visual hallucination and contracted for safety. Patient states she is willing to comply with treatment by doing her exercise and taking her medications as this will quaking her discharge process. Past psychiatric history Denies Hospitalization: other Medical history Problems Medical Problems: (1) Altered level of consciousness Status: Acute (2) Encephalopathy acute Status: Acute Allergies: Coded Allergies: No Known Allergy (Unverified , 08/25/18) Substance Abuse Substance abuse history: No Prior substance abuse treatmen: No Social History Marital status: single DPA/Conservatorship: No Occupation/Nursing Home: works at a [employer] Psychiatric Objective Eval Review of Systems: Review of Systems: Not Applicable Physical Examination: Physical Examination: Not Applicable Appetite: Adequate Energy: Adequate Interest: Adequate Mental Status Examination: Appearance: Groomed Eye Contact: Fair Psychomotor Activity: Slow Behavior: Cooperative Speech: Clear AFFECT: Appropriate Mood: Appropriate/Full Though Process: Linear Thought Content: Normal Orientation: x4 Insight: Intact Judgement: Intact Laboratory Results Laboratory Tests Test 08/26/18 21:30 08/27/18 05:56 Urine Color YELLOW Urine Clarity CLEAR Urine pH 8.0 Urine Specific [place] 1.010 Urine Ketones NEGATIVE mg/dL Urine Nitrite NEGATIVE mg/dL Urine Bilirubin NEGATIVE mg/dL Urine Urobilinogen NEGATIVE mg/dL Urine Leukocyte Esterase 1+ Camilla/ul Urine Microscopic RBC 12 /HPF Urine Microscopic WBC 13 /HPF Urine Squamous Epithelial Cells FEW /HPF Urine Bacteria MANY /HPF Urine Hemoglobin 2+ mg/dL Urine Glucose NEGATIVE mg/dL Urine Total Protein NEGATIVE mg/dl White Blood Count 4.9 10^3/ul Red Blood Count 3.37 10^6/ul Hemoglobin 10.0 g/dl Hematocrit 30.5 % Mean Corpuscular Volume 90.5 fl Mean Corpuscular Hemoglobin 29.7 pg Mean Corpuscular Hemoglobin Concent 32.8 g/dl Red Cell Distribution Width 15.9 % Platelet Count 250 10^3/UL Mean Platelet Volume 9.9 fl Immature Granulocytes % 0.600 % Neutrophils % 72.0 % Lymphocytes % 21.2 % Monocytes % 5.8 % Eosinophils % 0.2 % Basophils % 0.2 % Nucleated Red Blood Cells % 0.0 /100WBC Immature Granulocytes # 0.030 10^3/ul Neutrophils # 3.5 10^3/ul Lymphocytes # 1.0 10^3/ul Monocytes # 0.3 10^3/ul Eosinophils # 0.0 10^3/ul Basophils # 0.0 10^3/ul Nucleated Red Blood Cells # 0.0 10^3/ul Sodium Level 138 mmol/L Potassium Level 3.6 mmol/L Chloride Level 99 mmol/L Carbon Dioxide Level 29 mmol/L Anion Gap 10 Blood Urea Nitrogen 18 mg/dl Creatinine 0.56 mg/dl Est Glomerular Filtrat Rate mL/min > 60 mL/min Glucose Level 96 mg/dl Calcium Level 8.9 mg/dl Total Bilirubin 0.0 mg/dl Direct Bilirubin 0.00 mg/dl Indirect Bilirubin 0.0 mg/dl Aspartate Amino Transf (AST/SGOT) 23 IU/L Alanine Aminotransferase (ALT/SGPT) 30 IU/L Alkaline Phosphatase 97 IU/L Total Protein 6.6 g/dl Albumin 3.6 g/dl Globulin 3.00 g/dl Albumin/Globulin Ratio 1.20 Assessment and Plan Recommendation/Plan Discharge Disposition: Other Legal Status: Voluntary (Patient does not meets criteria for 5150 hold and does not require any medication. Psychiatric gann patient is cleared) BRETT YEN NP Aug 28, 2018 10:28
[2018-08-28] MEDS ORDERED: CEFTRIAXONE 1 GM/50 ML (PMX) 50 ML IVPB SCH (13:00)
--- NOTE | 2018-08-28 13:02 | PN ---
Date/Time of Note Date/Time of Note DATE: 08/28/18 TIME: 13:01 Assessment/Plan VTE Prophylaxis Risk score (from Ns)>0 risk: 1 SCD applied (from Ns): Yes Pharmacological prophylaxis: NA/contraindicated Pharm contraindication: low risk/ambulating Lines/Catheters IV Catheter Type (from [facility]): Saline Lock Assessment/Plan Hospital Course SUBJECTIVE: Sleeping. No acute distress. OBJECTIVE: Vital signs-see below PHYSICAL EXAM: Constitutional: Well-developed, adequately built, lying in bed comfortably. Psych: nl mood/affect, no complaints Head: atraumatic, normocephalic Eyes: nl conjunctiva, nl sclera ENMT: mucosa pink and moist, nl external ears & nose Neck: non-tender, supple Respiratory: clear to auscultation, normal air movement Cardiovascular: nl pulses, regular rate and rhythm Gastrointestinal: non-tender, soft, bowel sounds active in all 4 quadrants. Musculoskeletal/extremities: nl extremities to inspection, motor strength equal bilaterally, no focal deficit. Normal pulses,no cyanosis, no edema. Neurological: Alert oriented 3,nl speech, nl strength Skin: nl turgor ASSESSMENT/PLAN:22 yo male wiht lupus who has been admitted to [facility] after episode of aseptic meningitis Lupus: - Management per rheumatology: cellcept and prednisone Seizures: - Oxcarbazapine Possible underlying psychiatric disorders: - s/p psych eval, 1:1 for safety -Supportive care Aseptic meningitis: - supporitve care GNR UTI -Patient refused IV insertion. At this time, recommend starting PO Cipro and await for final cultures. Patient is an evaluation with Dr. Antonio. Result Diagram: 08/27/18 0556 08/27/18 0556 Exam/Review of Systems Exam Vitals Vital Signs Date Temp Pulse Resp B/P (MAP) Pulse Ox O2 O2 Flow FiO2 Time Delivery Rate 08/28/18 98.0 101 18 113/63 100 Room Air 08:50 (80) Intake and Output 08/27/18 08/27/18 08/28/18 1515:00 23:00 07:00 IntakeIntake Total 500 ml 1200 ml OutputOutput Total 800 ml 2 ml BalanceBalance 500 ml 400 ml -2 ml Medications Medication Current Medications Magnesium Hydroxide (Milk Of Mag) 30 ml BID PRN PO constipation; Start 08/27/18 at 00:00 Lactulose (Enulose) 20 gm DAILY PRN PO constipation; Start 08/27/18 at 00:00 Bisacodyl (Dulcolax Supp) 10 mg DAILY PRN [place] constipation; Start 08/27/18 at 00:00 Acetaminophen (Tylenol Tab) 650 mg Q4H PRN PO PAIN LEVEL 1-3 OR FEVER; Start 08/27/18 at 00:00 Mycophenolate Mofetil (Cellcept) 500 mg BID PO Last administered on 08/28/18at 09:08; Admin Dose 500 MG; Start 08/27/18 at 09:00 Oxcarbazepine (Trileptal) 300 mg BID PO Last administered on 08/28/18at 09:05; Admin Dose 300 MG; Start 08/27/18 at 09:00 Prednisone (Prednisone) 20 mg DAILY PO Last administered on 08/28/18at 09:06; Admin Dose 20 MG; Start 08/27/18 at 09:00 Buspirone HCl (Buspar) 10 mg BID PO Last administered on 08/28/18at 09:05; Admin Dose 10 MG; Start 08/27/18 at 10:00 Lorazepam (Ativan) 1 mg Q2H PRN PO ANXIETY Last administered on 08/28/18at 0 2:45; Admin Dose 1 MG; Start 08/28/18 at 03:00 Ceftriaxone Sodium 50 ml @ 100 mls/hr Q24H IVPB ; Start 08/28/18 at 13:00 STEPHY YBARRA NP Aug 28, 2018 13:02
--- NOTE | 2018-08-28 14:20 | NUR ---
Called [facility] and inquired regarding seizure pad and according to them they are still out of it.
[2018-08-28 14:48] VITALS: BP 92/55; RESP 16
--- NOTE | 2018-08-28 15:29 | NUR ---
RN NOTES Patient was again encouraged for IV reinsertion again but then again refused and stated that she prefers oral medication. FOOT CASTER Arelis well aware. Kept safe and comfortable. Still on 1:1 sitter. Patient denied pain or discomfort. Still prefers to be on the couch rather than her bed. No nayla issues identified. Transferred care to CAROLANN TAMAYO.
--- NOTE | 2018-08-28 15:30 | NUR ---
Received report from CADEN RN for continuation of patient's care.
[2018-08-28] MEDS: CIPROFLOXACIN 500 MG TAB PO SCH (17:43)
--- NOTE | 2018-08-28 18:28 | NUR ---
End of shift summary note Patient seen not in distress or discomfort this time. Remains on 1:1 sitter for safety. Patient participated with therapy today and was cooperative. Siri LOOP TENDER spoke with the patient. Due medications given. Patient complains of pain and was medicated with Tylenol; relief noted. Patient refused to be back on bed and remains on the couch despite explanation. Needs attended and continuous monitoring provided. Will endorse to next shift.
[2018-08-28 19:51] VITALS: BP 100/56; PULSE 106; RESP 18
[2018-08-29 02:00] VITALS: BP 101/55; PULSE 88; RESP 16
--- NOTE | 2018-08-29 02:08 | NUR ---
TRUE RN Weekly Summary Dates From: 08/26/18 to 08/29/18 Patient Name: JESSICA BROCK MR#: [id number] Height: 5 ft 3 in Weight: 110 lbs 10.753 oz 50.200 kg Reason for Visit: NON TRAUMATIC BRAIN INJURY POSSIBLE DUE TO MENINGI Precautions: Date: 08/29/18 Time: 0209 User: TRISTINE MARTE Short-term Goals: 1. Pt will remain free of falls/injuries 2. Pt will have good pain control Patient's progress: Fair Short-term goals not met and reason/barriers: ongoing Bladder - level of function and accidents: 6-7, no accident Bowel - level of function and accidents: 7, no accident Skin: intact Status: Treatment: Changes: Pain: No Level: 0 Location: Management: Changes: Functional levels: Self Care: 0 Transfers: 0-4 Locomotion: 4-5 Assistance requirements: Communication: 5 Social Cognition: 4 Safety awareness: 1:1 sitter Interdisciplinary interactions: PT/OT/SW/RN/MD Patient education: Yes, education given re: safety precautions. Discharge needs: Comorbid conditions: Hx of seizure, SLE, recent PNA, (+) ESBL urine Plan of Care continuation: continue current POC
[2018-08-29] MEDS: LORAZEPAM 1 MG TAB PO PRN (03:30)
--- NOTE | 2018-08-29 06:37 | NUR ---
Pt asleep at this time. No complaints of pain, episodes of anxiety noted during the shift. Medicated per MD order. Due HS meds given. Needs attended to. 1:1 sitter, mother and at bedside. Safety precautions in place. Kept comfortable. Refused 6AM Cipro, saying she would take it later. Will endorse accordingly.
[2018-08-29 07:44] VITALS: BP 109/59; PULSE 85; RESP 17
[2018-08-29 07:46] VITALS: BP 102/59; PULSE 85; RESP 18
[2018-08-29] MEDS: CIPROFLOXACIN 500 MG TAB PO SCH (07:57)
[2018-08-29] MEDS: BUSPIRONE 5 MG TAB PO SCH ×2 (08:36→20:45)
[2018-08-29] MEDS: MYCOPHENOLATE 250 MG CAP PO SCH ×2 (08:36→20:45)
[2018-08-29] MEDS: predniSONE 20 MG TAB PO SCH (08:36)
[2018-08-29] MEDS: OXCARBAZEPINE 300 MG TAB PO SCH ×2 (08:36→20:45)
--- NOTE | 2018-08-29 10:26 | NUR ---
Received report from Microbiology (Kenyatta) that patient had K Pneumo ESBL (urine). Patient on contact isolation since admission and was started with Antibiotic yesterday (08/28/18).
--- NOTE | 2018-08-29 11:45 | PN ---
Date/Time of Note Date/Time of Note DATE: 08/29/18 TIME: 11:44 Assessment/Plan VTE Prophylaxis Risk score (from Ns)>0 risk: 1 SCD applied (from Ns): Yes Pharmacological prophylaxis: NA/contraindicated Pharm contraindication: low risk/ambulating Lines/Catheters IV Catheter Type (from Nrs): Saline Lock Assessment/Plan Hospital Course SUBJECTIVE: No acute overnight episodes OBJECTIVE: Vital signs-see below PHYSICAL EXAM: Constitutional: Well-developed, adequately built, lying in bed comfortably. Psych: nl mood/affect, no complaints Head: atraumatic, normocephalic Eyes: nl conjunctiva, nl sclera ENMT: mucosa pink and moist, nl external ears & nose Neck: non-tender, supple Respiratory: clear to auscultation, normal air movement Cardiovascular: nl pulses, regular rate and rhythm Gastrointestinal: non-tender, soft, bowel sounds active in all 4 quadrants. Musculoskeletal/extremities: nl extremities to inspection, motor strength equal bilaterally, no focal deficit. Normal pulses,no cyanosis, no edema. Neurological: Alert oriented 3,nl speech, nl strength Skin: nl turgor ASSESSMENT/PLAN:22 yo male wiht lupus who has been admitted to [facility] after episode of aseptic meningitis Lupus: - Management per rheumatology: cellcept and prednisone Seizures: - Oxcarbazapine Possible underlying psychiatric disorders: - s/p psych eval, 1:1 for safety -Supportive care Aseptic meningitis: - supporitve care ESBL UTI resistant to multiple agents -Micro noted. Start cefepime IV. Patient is seen in collaboration with Dr. Antonio. Result Diagram: 08/27/18 0556 08/27/18 0556 Exam/Review of Systems Exam Vitals Vital Signs Date Temp Pulse Resp B/P (MAP) Pulse Ox O2 O2 Flow FiO2 Time Delivery Rate 08/29/18 97.7 85 17 109/59 97 Room Air 07:44 (76) Intake and Output 08/28/18 08/28/18 08/29/18 1515:00 23:00 07:00 IntakeIntake Total 700 ml 250 ml 150 ml BalanceBalance 700 ml 250 ml 150 ml Medications Medication Current Medications Magnesium Hydroxide (Milk Of Mag) 30 ml BID PRN PO constipation; Start 08/27/18 at 00:00 Lactulose (Enulose) 20 gm DAILY PRN PO constipation; Start 08/27/18 at 00:00 Bisacodyl (Dulcolax Supp) 10 mg DAILY PRN [place] constipation; Start 08/27/18 at 00:00 Acetaminophen (Tylenol Tab) 650 mg Q4H PRN PO PAIN LEVEL 1-3 OR FEVER Last administered on 08/28/18 16:00; Admin Dose 650 MG; Start 08/27/18 at 00:00 Mycophenolate Mofetil (Cellcept) 500 mg BID PO Last administered on 08/29/18 08:36; Admin Dose 500 MG; Start 08/27/18 at 09:00 Oxcarbazepine (Trileptal) 300 mg BID PO Last administered on 08/29/18 08:36; Admin Dose 300 MG; Start 08/27/18 at 09:00 Prednisone (Prednisone) 20 mg DAILY PO Last administered on 08/29/18 08:36; Admin Dose 20 MG; Start 08/27/18 at 09:00 Buspirone HCl (Buspar) 10 mg BID PO Last administered on 08/29/18 08:36; Admin Dose 10 MG; Start 08/27/18 at 10:00 Lorazepam (Ativan) 1 mg Q2H PRN PO ANXIETY Last administered on 08/29/18 03: 30; Admin Dose 1 MG; Start 08/28/18 at 03:00 Ceftriaxone Sodium 50 ml @ 100 mls/hr Q24H IVPB ; Start 08/28/18 at 13:00 Ciprofloxacin (Cipro) 500 mg BID@06,18 PO Last administered on 08/29/18 07:57; Admin Dose 500 MG; Start 08/28/18 at 18:00 STEPHY YBARRA NP Aug 29, 2018 11:45
--- NOTE | 2018-08-29 13:00 | NUR ---
Seen patient on bed with mother at bedside and with 1:1 sitter. Patient seems calm and quiet and asked if it's okay with her to put an IV on her. Patient agreed and did not hesitate. No noted behavioral issues as of this time. Will continue to monitor patient.
[2018-08-29 14:00] VITALS: BP 110/60; PULSE 80; RESP 18
[2018-08-29] MEDS: CEFEPIME 1GM/50 ML (PMX) 50 ML IVPB SCH ×2 (14:04→20:51)
--- NOTE | 2018-08-29 16:48 | NUR ---
pt appears to be comfortable and stable. Very calm and no complains. family at bedside. Called Dr. Shay and inform her of patient status. Got an order to d/c the sitter
--- NOTE | 2018-08-29 18:56 | NUR ---
End of shift summary note Patient awake, alert and not in any distress or discomfort this time. Family remains at bedside. Due medications given. Denies any nausea or vomiting. No noted suicidal ideation or any behavioral issues at this time. Call light and bedside table placed within reach. Bed alarm activated for safety and bed placed on lowest position. Needs attended and continuous monitoring provided. Will endorse to next shift.
--- NOTE | 2018-08-29 19:49 | NUR ---
Dr. Shepard, hospitalist on-call, made aware of pt's request for sleeping med. Said gave new order of Ambien 10mg PO once.
[2018-08-29 20:09] VITALS: BP 102/50; PULSE 116; RESP 18
[2018-08-29] MEDS ORDERED: ZOLPIDEM 5 MG TAB PO ONE (21:00)
[2018-08-30] MEDS: LORAZEPAM 1 MG TAB PO PRN (00:20)
[2018-08-30 02:00] VITALS: BP 101/58; PULSE 98; RESP 18
--- NOTE | 2018-08-30 06:04 | NUR ---
Pt asleep at this time. No complaints of pain, episodes of anxiety, sleeplessness noted during the shift. Ativan, Ambien given per MD order. Due HS meds given. Needs attended to. Mother at bedside. Safety precautions in place. Kept comfortable. Encouraged to call for help whenever necessary. Frequent checks done. Will endorse accordingly.
--- NOTE | 2018-08-30 06:07 | NUR ---
Family member/s noted to be with pt all the time. No suicidal ideation noted.
[2018-08-30 08:00] VITALS: BP 105/66; PULSE 115; RESP 20
[2018-08-30] MEDS: OXCARBAZEPINE 300 MG TAB PO SCH ×2 (08:35→20:30)
[2018-08-30] MEDS: predniSONE 20 MG TAB PO SCH (08:35)
[2018-08-30] MEDS: BUSPIRONE 5 MG TAB PO SCH ×2 (08:35→20:30)
[2018-08-30] MEDS: MYCOPHENOLATE 250 MG CAP PO SCH ×2 (08:35→20:30)
[2018-08-30] MEDS: CEFEPIME 1GM/50 ML (PMX) 50 ML IVPB SCH ×2 (09:35→21:28)
--- NOTE | 2018-08-30 11:30 | PN ---
Date/Time of Note Date/Time of Note DATE: 08/30/18 TIME: 11:29 Assessment/Plan VTE Prophylaxis Risk score (from Ns)>0 risk: 1 SCD applied (from Ns): Yes Pharmacological prophylaxis: NA/contraindicated Pharm contraindication: low risk/ambulating Lines/Catheters [facility] Saline Lock Assessment/Plan Hospital Course SUBJECTIVE: No acute overnight episodes OBJECTIVE: Vital signs-see below PHYSICAL EXAM: Constitutional: Well-developed, adequately built, lying in bed comfortably. Psych: nl mood/affect, no complaints Head: atraumatic, normocephalic Eyes: nl conjunctiva, nl sclera ENMT: mucosa pink and moist, nl external ears & nose Neck: non-tender, supple Respiratory: clear to auscultation, normal air movement Cardiovascular: nl pulses, regular rate and rhythm Gastrointestinal: non-tender, soft, bowel sounds active in all 4 quadrants. Musculoskeletal/extremities: nl extremities to inspection, motor strength equal bilaterally, no focal deficit. Normal pulses,no cyanosis, no edema. Neurological: Alert oriented 3,nl speech, nl strength Skin: nl turgor ASSESSMENT/PLAN:22 yo male wiht lupus who has been admitted to [facility] after episode of aseptic meningitis Lupus: - Management per rheumatology: cellcept and prednisone Seizures: - Oxcarbazapine Possible underlying psychiatric disorders: - s/p psych eval, 1:1 for safety -Supportive care Aseptic meningitis: - supporitve care ESBL UTI resistant to multiple agents -On cefepime. Prophylaxis: SCDs/ambulate Patient is seen in collaboration with Dr. Alva Result Diagram: 08/27/18 0556 08/27/18 0556 Exam/Review of Systems Exam Vitals Vital Signs Date Temp Pulse Resp B/P (MAP) Pulse Ox O2 O2 Flow FiO2 Time Delivery Rate 08/30/18 97.3 115 20 105/66 100 Room Air 08:00 (79) Intake and Output 08/29/18 08/29/18 08/30/18 1515:00 23:00 07:00 IntakeIntake Total 1450 ml 50 ml OutputOutput Total 300 ml BalanceBalance 1150 ml 50 ml Medications Medication Current Medications Magnesium Hydroxide (Milk Of Mag) 30 ml BID PRN PO constipation; Start 08/27/18 at 00:00 Lactulose (Enulose) 20 gm DAILY PRN PO constipation; Start 08/27/18 at 00:00 Bisacodyl (Dulcolax Supp) 10 mg DAILY PRN [place] constipation; Start 08/27/18 at 00:00 Acetaminophen (Tylenol Tab) 650 mg Q4H PRN PO PAIN LEVEL 1-3 OR FEVER Last administered on 08/28/18 16:00; Admin Dose 650 MG; Start 08/27/18 at 00:00 Mycophenolate Mofetil (Cellcept) 500 mg BID PO Last administered on 08/30/18 08:35; Admin Dose 500 MG; Start 08/27/18 at 09:00 Oxcarbazepine (Trileptal) 300 mg BID PO Last administered on 08/30/18 08:35; Admin Dose 300 MG; Start 08/27/18 at 09:00 Prednisone (Prednisone) 20 mg DAILY PO Last administered on 08/30/18 08:35; Admin Dose 20 MG; Start 08/27/18 at 09:00 Buspirone HCl (Buspar) 10 mg BID PO Last administered on 08/30/18 08:35; Admin Dose 10 MG; Start 08/27/18 at 10:00 Lorazepam (Ativan) 1 mg Q2H PRN PO ANXIETY Last administered on 08/30/18 00:20; Admin Dose 1 MG; Start 08/28/18 at 03:00 Cefepime HCl 50 ml @ 100 mls/hr Q12 IVPB Last administered on 08/30/18 09:35; Admin Dose 100 MLS/HR; Start 08/29/18 at 13:00 STEPHY YBARRA NP Aug 30, 2018 11:30
--- NOTE | 2018-08-30 12:19 | PN ---
Date/Time of Note Date/Time of Note DATE: 08/30/18 TIME: 12:19 Objective Vital Signs Date Temp Pulse Resp B/P (MAP) Pulse Ox O2 O2 Flow FiO2 Time Delivery Rate 08/30/18 97.3 115 20 105/66 100 Room Air 08:00 (79) Intake and Output 08/29/18 08/29/18 08/30/18 1515:00 23:00 07:00 IntakeIntake Total 1450 ml 50 ml OutputOutput Total 300 ml BalanceBalance 1150 ml 50 ml Exam INTERDISCIPLINARY TEAM CONFERENCE Physical Exam: Pulm- cta Abd-soft BOWEL- Cont BLADDER-Cont SKIN- intact OT- DRESSING-cga BATHING-cga TOILETING-cga PT- BED MOBILITY-sba TRANSFERS-sba AMBULATION-sba 150 feet SPEECH- COGNITION- min/mod Dysphagia- upgraded to regular diet A/P- Interdisciplinary team conference held today. Please see interdisciplinary sheet. Working toward d.cRegla on 08/31 with post discharge follow up of physical therapy, occupational therapy. Results/Medications Result Diagram: 08/27/18 0556 08/27/18 0556 Medications Current Medications Magnesium Hydroxide (Milk Of Mag) 30 ml BID PRN PO constipation; Start 08/27/18 at 00:00 Lactulose (Enulose) 20 gm DAILY PRN PO constipation; Start 08/27/18 at 00:00 Bisacodyl (Dulcolax Supp) 10 mg DAILY PRN [place] constipation; Start 08/27/18 at 00:00 Acetaminophen (Tylenol Tab) 650 mg Q4H PRN PO PAIN LEVEL 1-3 OR FEVER Last administered on 08/28/18at 16:00; Admin Dose 650 MG; Start 08/27/18 at 00:00 Mycophenolate Mofetil (Cellcept) 500 mg BID PO Last administered on 08/30/18at 08:35; Admin Dose 500 MG; Start 08/27/18 at 09:00 Oxcarbazepine (Trileptal) 300 mg BID PO Last administered on 08/30/18at 08:35; Admin Dose 300 MG; Start 08/27/18 at 09:00 Prednisone (Prednisone) 20 mg DAILY PO Last administered on 08/30/18at 08:35; Admin Dose 20 MG; Start 08/27/18 at 09:00 Buspirone HCl (Buspar) 10 mg BID PO Last administered on 08/30/18at 08:35; Admin Dose 10 MG; Start 08/27/18 at 10:00 Lorazepam (Ativan) 1 mg Q2H PRN PO ANXIETY Last administered on 08/30/18at 00:20; Admin Dose 1 MG; Start 08/28/18 at 03:00 Cefepime HCl 50 ml @ 100 mls/hr Q12 IVPB Last administered on 08/30/18at 09:35; Admin Dose 100 MLS/HR; Start 08/29/18 at 13:00 ODALYS SHULTZ MD Aug 30, 2018 12:19
--- NOTE | 2018-08-30 13:31 | CONS ---
Consult Date/Type/Reason Admit Date/Time Aug 26, 2018 at 22:14 Initial Consult Date Type of Consultation: Rheumatology Date/Time of Note DATE: 08/30/18 TIME: 13:28 Subjective States feels well. No pain. Denies being confused but states that is leaving tomorrow and has appt with her Authorization Nurse tomorrow. She states she can go there anytime and will be seen. Objective Vitals Vital Signs Date Temp Pulse Resp B/P (MAP) Pulse Ox O2 O2 Flow FiO2 Time Delivery Rate 08/30/18 97.3 115 20 105/66 100 Room Air 08:00 (79) Intake and Output 08/29/18 08/29/18 08/30/18 1515:00 23:00 07:00 IntakeIntake Total 1450 ml 50 ml OutputOutput Total 300 ml BalanceBalance 1150 ml 50 ml Exam GENERAL: No acute distress, alert and oriented SKIN: Without rashes or other lesions. HEENT: Without acute oral or ocular lesions noted. NECK: Without lymphadenopathy. CHEST: Clear to auscultation. HEART: Regular rate and rhythm without gallops or murmurs noted. ABDOMEN: Soft without mass or tenderness. MUSCULOSKELETAL: Joints with good range of motion without synovitis or ten derness. NEUROLOGIC: At present grossly intact Results/Medications Result Diagram: 08/27/18 0556 08/27/18 0556 Home Meds Reported Medications Prednisone* (Prednisone*) 10 Mg Tab, 10 MG PO BID, TAB 08/20/18 Hydroxychloroquine Sulfate* (Hydroxychloroquine Sulfate*) 200 Mg Tablet, 200 MG PO BID, TAB 08/20/18 Calcium Carbonate/Vitamin D3 (OYSTER SHELL 500 MG + VIT D TB) 1 Each Tablet, 1 EACH PO BID, TAB 08/20/18 Ferrous Sulfate* (Ferrous Sulfate*) 325 Mg Tabec, 325 MG PO DAILY, TAB 08/20/18 Medications Current Medications Magnesium Hydroxide (Milk Of Mag) 30 ml BID PRN PO constipation; Start 08/27/18 at 00:00 Lactulose (Enulose) 20 gm DAILY PRN PO constipation; Start 08/27/18 at 00:00 Bisacodyl (Dulcolax Supp) 10 mg DAILY PRN [place] constipation; Start 08/27/18 at 00:00 Acetaminophen (Tylenol Tab) 650 mg Q4H PRN PO PAIN LEVEL 1-3 OR FEVER Last administered on 08/28/18 16:00; Admin Dose 650 MG; Start 08/27/18 at 00:00 Mycophenolate Mofetil (Cellcept) 500 mg BID PO Last administered on 08/30/18 08:35; Admin Dose 500 MG; Start 08/27/18 at 09:00 Oxcarbazepine (Trileptal) 300 mg BID PO Last administered on 08/30/18 08:35; Admin Dose 300 MG; Start 08/27/18 at 09:00 Prednisone (Prednisone) 20 mg DAILY PO Last administered on 08/30/18 08:35; Ad min Dose 20 MG; Start 08/27/18 at 09:00 Buspirone HCl (Buspar) 10 mg BID PO Last administered on 08/30/18 08:35; Admin Dose 10 MG; Start 08/27/18 at 10:00 Lorazepam (Ativan) 1 mg Q2H PRN PO ANXIETY Last administered on 08/30/18 00:20; Admin Dose 1 MG; Start 08/28/18 at 03:00 Cefepime HCl 50 ml @ 100 mls/hr Q12 IVPB Last administered on 08/30/18 09:35; Admin Dose 100 MLS/HR; Start 08/29/18 at 13:00 Assessment/Plan Assessment/Plan (Daily) ASSESSMENT: 1. Recent altered mental status and seizure disorder. Unclear if related to central nervous system lupus versus infectious etiology. 2. Systemic lupus erythematosus by history. Prior to her trip to [facility], she was apparently in no major distress and no evidence of active renal involvement; however, she was on CellCept and some prednisone. Patient unclear as to the dose but says she was on 20 mg prednisone. 3. Anemia with hematocrit around 25 on admission. At 30 today. Unclear if it relates to the inflammatory process versus other. RECOMMENDATIONS: 1. Continue CellCept 500 mg twice a day until reevaluated by her Authorization Nurse as outpatient. 2. Continue Prednisone 20 mg daily until reevaluated by her Authorization Nurse as outpatient. 3. I discussed with patient need to see her Authorization Nurse within a couple of days from discharge. She states she understands and will do. BERTO VERNON MD Aug 30, 2018 13:30
[2018-08-30 14:00] VITALS: BP 98/57; PULSE 96; RESP 18
--- NOTE | 2018-08-30 18:39 | NUR ---
Pt verbalizes a desire to go home, but agrees when calmly discussed that she will stay until tomorrow after breakfast. Family continues at bedside at all times. VSS. IV antibiotic continues for ESBL urine- will need medication evaluation for UTI prior to discharge. house carpenter helper aware.
[2018-08-30 20:00] VITALS: BP 100/59; PULSE 101; RESP 18
--- NOTE | 2018-08-31 01:30 | NUR ---
Found pt sleeping on the visitor's couch and the relative sleeping on the pt's bed. Explained to pt and relative the risks and pt refused to go back to bed. Merari VUONG aware .
[2018-08-31 02:00] VITALS: BP 112/63; PULSE 95; RESP 18
--- NOTE | 2018-08-31 03:00 | NUR ---
Hse pipe fitter supervisor maintenance made aware of pt sleeping on the visitors couch and the relative sleeping on the pt's bed.
--- NOTE | 2018-08-31 03:20 | NUR ---
Explained to pt and relative the risks and benefits of pt sleeping on the pt's bed and the relative sleeping on the couch. Understood explanation and the risks and benefits of it, now pt is back to bed. Linens and beddings has been changed. Call light within reached and bed alarm is activated.
--- NOTE | 2018-08-31 06:50 | NUR ---
Slept well. Resp unlabored. Denies pain . Assisted to toilet, voiding well. Needs attended. No acute distress noted.
[2018-08-31 07:30] VITALS: BP 115/71; PULSE 84; RESP 18
[2018-08-31] MEDS: BUSPIRONE 5 MG TAB PO SCH ×2 (08:07→20:21)
[2018-08-31] MEDS: MYCOPHENOLATE 250 MG CAP PO SCH ×2 (08:08→20:21)
[2018-08-31] MEDS: predniSONE 20 MG TAB PO SCH (08:08)
[2018-08-31] MEDS: OXCARBAZEPINE 300 MG TAB PO SCH ×2 (08:08→20:21)
[2018-08-31] MEDS: CEFEPIME 1GM/50 ML (PMX) 50 ML IVPB SCH ×2 (09:27→20:22)
--- NOTE | 2018-08-31 10:54 | PN ---
Date/Time of Note Date/Time of Note DATE: 08/31/18 TIME: 10:53 Assessment/Plan VTE Prophylaxis Risk score (from Ns)>0 risk: 1 SCD applied (from [facility]): No SCD contraindicated: low risk/ambulating Pharmacological prophylaxis: NA/contraindicated Pharm contraindication: low risk/ambulating Lines/Catheters [facility] Saline Lock Assessment/Plan Hospital Course SUBJECTIVE: No acute overnight episodes OBJECTIVE: Vital signs-see below PHYSICAL EXAM: Constitutional: Well-developed, adequately built, lying in bed comfortably. Psych: nl mood/affect, no complaints Head: atraumatic, normocephalic Eyes: nl conjunctiva, nl sclera ENMT: mucosa pink and moist, nl external ears & nose Neck: non-tender, supple Respiratory: clear to auscultation, normal air movement Cardiovascular: nl pulses, regular rate and rhythm Gastrointestinal: non-tender, soft, bowel sounds active in all 4 quadrants. Musculoskeletal/extremities: nl extremities to inspection, motor strength equal bilaterally, no focal deficit. Normal pulses,no cyanosis, no edema. Neurological: Alert oriented 3,nl speech, nl strength Skin: nl turgor ASSESSMENT/PLAN:22 yo male wiht lupus who has been admitted to [facility] after episode of aseptic meningitis Lupus: - Management per rheumatology: cellcept and prednisone Seizures: - Oxcarbazapine Possible underlying psychiatric disorders: -Stable with no acute issues. -Supportive care Aseptic meningitis: - supporitve care ESBL UTI resistant to multiple agents -On cefepime. Prophylaxis: SCDs/ambulate Patient is seen in collaboration with Dr. Alva Result Diagram: 08/27/18 0556 08/27/18 0556 Exam/Review of Systems Exam Vitals Vital Signs Date Temp Pulse Resp B/P (MAP) Pulse Ox O2 O2 Flow FiO2 Time Delivery Rate 08/31/18 98.6 84 18 115/71 100 Room Air 07:30 (86) Intake and Output 08/30/18 08/30/18 08/31/18 1414:59 22:59 06:59 IntakeIntake Total 50 ml 2050 ml 360 ml OutputOutput Total 800 ml BalanceBalance 50 ml 1250 ml 360 ml Medications Medication Current Medications Magnesium Hydroxide (Milk Of Mag) 30 ml BID PRN PO constipation; Start 08/27/18 at 00:00 Lactulose (Enulose) 20 gm DAILY PRN PO constipation; Start 08/27/18 at 00:00 Bisacodyl (Dulcolax Supp) 10 mg DAILY PRN [place] constipation; Start 08/27/18 at 00:00 Acetaminophen (Tylenol Tab) 650 mg Q4H PRN PO PAIN LEVEL 1-3 OR FEVER Last administered on 08/28/18 16:00; Admin Dose 650 MG; Start 08/27/18 at 00:00 Mycophenolate Mofetil (Cellcept) 500 mg BID PO Last administered on 08/31/18 08:08; Admin Dose 500 MG; Start 08/27/18 at 09:00 Oxcarbazepine (Trileptal) 300 mg BID PO Last administered on 08/31/18 08:08; Admin Dose 300 MG; Start 08/27/18 at 09:00 Prednisone (Prednisone) 20 mg DAILY PO Last administered on 08/31/18 08:08; Admin Dose 20 MG; Start 08/27/18 at 09:00 Buspirone HCl (Buspar) 10 mg BID PO Last administered on 08/31/18at 08:07; Admin Dose 10 MG; Start 08/27/18 at 10:00 Lorazepam (Ativan) 1 mg Q2H PRN PO ANXIETY Last administered on 08/30/18at 00:20; Admin Dose 1 MG; Start 08/28/18 at 03:00 Cefepime HCl 50 ml @ 100 mls/hr Q12 IVPB Last administered on 08/31/18 09:27; Admin Dose 100 MLS/HR; Start 08/29/18 at 13:00 Miscellaneous Information Patients own medicat... BID@10, XX ; Start 08/31/18 at 10:00 STEPHY YBARRA NP Aug 31, 2018 10:54
--- NOTE | 2018-08-31 12:07 | PN ---
Date/Time of Note Date/Time of Note DATE: 08/31/18 TIME: 12:06 Subjective Antibiotics d/w patient, and need to continue until tomorrow Objective Vital Signs Date Temp Pulse Resp B/P (MAP) Pulse Ox O2 O2 Flow FiO2 Time Delivery Rate 08/31/18 98.6 84 18 115/71 100 Room Air 07:30 (86) Intake and Output 08/30/18 08/30/18 08/31/18 1515:00 23:00 07:00 IntakeIntake Total 50 ml 2050 ml 360 ml OutputOutput Total 800 ml BalanceBalance 50 ml 1250 ml 360 ml Exam pulm-cta abd-soft sba ambulation Results/Medications Result Diagram: 08/27/1856 08/27/18555 Medications Current Medications Magnesium Hydroxide (Milk Of Mag) 30 ml BID PRN PO constipation; Start 08/27/18 at 00:00 Lactulose (Enulose) 20 gm DAILY PRN PO constipation; Start 08/27/18 at 00:00 Bisacodyl (Dulcolax Supp) 10 mg DAILY PRN [place] constipation; Start 08/27/18 at 00:00 Acetaminophen (Tylenol Tab) 650 mg Q4H PRN PO PAIN LEVEL 1-3 OR FEVER Last administered on 08/28/18at 16:00; Admin Dose 650 MG; Start 08/27/18 at 00:00 Mycophenolate Mofetil (Cellcept) 500 mg BID PO Last administered on 08/31/18at 08:08; Admin Dose 500 MG; Start 08/27/18 at 09:00 Oxcarbazepine (Trileptal) 300 mg BID PO Last administered on 08/31/18at 08:08; Admin Dose 300 MG; Start 08/27/18 at 09:00 Prednisone (Prednisone) 20 mg DAILY PO Last administered on 08/31/18at 08:08; Admin Dose 20 MG; Start 08/27/18 at 09:00 Buspirone HCl (Buspar) 10 mg BID PO Last administered on 08/31/18at 08:07; Admin Dose 10 MG; Start 08/27/18 at 10:00 Lorazepam (Ativan) 1 mg Q2H PRN PO ANXIETY Last administered on 08/30/18at 00:20; Admin Dose 1 MG; Start 08/28/18 at 03:00 Cefepime HCl 50 ml @ 100 mls/hr Q12 IVPB Last administered on 08/31/18at 09:27; Admin Dose 100 MLS/HR; Start 08/29/18 at 13:00 Miscellaneous Information Patients own medicat... BID@10,16 XX ; Start 08/31/18 at 10:00 Assessment/Plan Additional Assessment/Plan Rehab- Infectious encephalopathy. Patient is agreeable to therapy activities, anticipate dc tomorrow Dispo- Home tomorrow Seizure disorder Dysphagia-tolerating current diet Systemic lupus erythematosus-continue current meds Pneumonia-pulm stable ID- abx for UTI ODALYS SHULTZ MD Aug 31, 2018 12:07
[2018-08-31 14:00] VITALS: BP 106/60; PULSE 99; RESP 20
--- NOTE | 2018-08-31 14:56 | NUR ---
Attempted ST x2. Pt declining today 2/2 upset that d/c date was delayed. Reports "I am in a bad mood right now." On second attempt was sleeping.
--- NOTE | 2018-08-31 15:43 | NUR ---
NUTRITION NOTES: Pt w/good PO, 75-100%. Stg 1 . Recommend MVI and Vit C. RD Recommendation 1. MVI daily 2. Vit C 500 mg BID daily
--- NOTE | 2018-08-31 17:17 | NUR ---
Patient is alert and breathing even. no SOB. no c/o pain. patient on isolation for ESBL in urine. IV/ABT given with no A/R. Patient is alert and breathing even. patient with episode of crying. patient stated that she wanter to go hoe. speak to in a calm manner and redirected as needed. meds and diet given as ordered. Patients mom is at bedside most of the time. reminded patient to call when needed help.
[2018-08-31 20:00] VITALS: BP 110/59; PULSE 92; RESP 18
[2018-08-31 20:21] VITALS: BP 110/59; PULSE 92; RESP 18
--- NOTE | 2018-08-31 23:52 | NUR ---
Pt requested to turn bed alarm off despite teaching re: its purpose. Pt's mother agreed. Mother at bedside. Will continue to monitor.
--- NOTE | 2018-09-01 00:08 | NUR ---
Nursing Sup made aware of pt's refusal to leave bed alarm on
[2018-09-01] MEDS ORDERED: ZOLPIDEM 5 MG TAB ONE (01:10)
--- NOTE | 2018-09-01 01:17 | NUR ---
Ambien 5mg PO x1 ordered by Dr. Guo, per pt's request. Administered per MD order
[2018-09-01 02:00] VITALS: BP 112/62; PULSE 78; RESP 18
--- NOTE | 2018-09-01 06:14 | NUR ---
Pt asleep at this time. No complaints of pain. Due meds given. Needs attended to. Mother at bedside. Safety precautions in place. Kept comfortable. Encouraged to call for help whenever necessary. Frequent checks done. Will endorse accordingly.
--- NOTE | 2018-09-01 06:23 | NUR ---
Possible d/c today; med recon printed and placed in chart.
[2018-09-01 07:30] VITALS: BP 119/65; PULSE 97; RESP 20
[2018-09-01] MEDS: CEFEPIME 1GM/50 ML (PMX) 50 ML IVPB SCH ×2 (08:07→14:00)
[2018-09-01] MEDS: predniSONE 20 MG TAB PO SCH (08:07)
[2018-09-01] MEDS: MYCOPHENOLATE 250 MG CAP PO SCH (08:07)
[2018-09-01] MEDS: OXCARBAZEPINE 300 MG TAB PO SCH (08:07)
[2018-09-01] MEDS: BUSPIRONE 5 MG TAB PO SCH (08:07)
--- NOTE | 2018-09-01 11:04 | PN ---
Date/Time of Note Date/Time of Note DATE: 09/01/18 TIME: 11:03 Assessment/Plan VTE Prophylaxis Risk score (from Ns)>0 risk: 1 SCD applied (from Ns): Yes Pharmacological prophylaxis: NA/contraindicated Pharm contraindication: low risk/ambulating Lines/Catheters [facility] C[facility] (from [facility]): Saline Lock Assessment/Plan Hospital Course SUBJECTIVE: No acute overnight episodes OBJECTIVE: Vital signs-see below PHYSICAL EXAM: Constitutional: Well-developed, adequately built, lying in bed comfortably. Psych: nl mood/affect, no complaints Head: atraumatic, normocephalic Eyes: nl conjunctiva, nl sclera ENMT: mucosa pink and moist, nl external ears & nose Neck: non-tender, supple Respiratory: clear to auscultation, normal air movement Cardiovascular: nl pulses, regular rate and rhythm Gastrointestinal: non-tender, soft, bowel sounds active in all 4 quadrants. Musculoskeletal/extremities: nl extremities to inspection, motor strength equal bilaterally, no focal deficit. Normal pulses,no cyanosis, no edema. Neurological: Alert oriented 3,nl speech, nl strength Skin: nl turgor ASSESSMENT/PLAN:22 yo male wiht lupus who has been admitted to [facility] after episode of aseptic meningitis Lupus: - Management per rheumatology: cellcept and prednisone Seizures: - Oxcarbazapine Possible underlying psychiatric disorders: -Stable with no acute issues. -Supportive care Aseptic meningitis: - supporitve care ESBL UTI resistant to multiple agents -On cefepime. Prophylaxis: SCDs/ambulate Patient is seen in collaboration with Dr. Alva Exam/Review of Systems Exam Vitals Vital Signs Date Temp Pulse Resp B/P (MAP) Pulse Ox O2 O2 Flow FiO2 Time Delivery Rate 09/01/18 98.4 97 20 119/65 100 Room Air 07:30 (83) Intake and Output 08/31/18 08/31/18 09/01/18 1515:00 23:00 07:00 IntakeIntake Total 50 ml 1610 ml 440 ml OutputOutput Total 200 ml BalanceBalance 50 ml 1610 ml 240 ml Medications Medication Current Medications Magnesium Hydroxide (Milk Of Mag) 30 ml BID PRN PO constipation; Start 08/27/18 at 00:00 Lactulose (Enulose) 20 gm DAILY PRN PO constipation; Start 08/27/18 at 00:00 Bisacodyl (Dulcolax Supp) 10 mg DAILY PRN IN constipation; Start 08/27/18 at 00:00 Acetaminophen (Tylenol Tab) 650 mg Q4H PRN PO PAIN LEVEL 1-3 OR FEVER Last administered on 08/28/18at 16:00; Admin Dose 650 MG; Start 08/27/18 at 00:00 Mycophenolate Mofetil (Cellcept) 500 mg BID PO Last administered on 09/01/18 08:07; Admin Dose 500 MG; Start 08/27/18 at 09:00 Oxcarbazepine (Trileptal) 300 mg BID PO Last administered on 09/01/18 08:07; Admin Dose 300 MG; Start 08/27/18 at 09:00 Prednisone (Prednisone) 20 mg DAILY PO Last administered on 09/01/18 08:07; Admin Dose 20 MG; Start 08/27/18 at 09:00 Buspirone HCl (Buspar) 10 mg BID PO Last administered on 09/01/18 08:07; Admin Dose 10 MG; Start 08/27/18 at 10:00 Lorazepam (Ativan) 1 mg Q2H PRN PO ANXIETY Last administered on 08/30/18at 00:20; Admin Dose 1 MG; Start 08/28/18 at 03:00 Cefepime HCl 50 ml @ 100 mls/hr Q12 IVPB Last administered on 09/01/18 08:07; Admin Dose 100 MLS/HR; Start 08/29/18 at 13:00 Miscellaneous Information Patients own medicat... BID@10,16 XX ; Start 08/31/18 at 10:00 STEPHY YBARRA NP Sep 01, 2018 11:04
--- NOTE | 2018-09-01 12:57 | DS ---
Date/Time of Note Date/Time of Note DATE: 09/01/18 TIME: 12:53 Discharge Summary Admission/Discharge Info Admit Date/Time Aug 26, 2018 at 22:14 Discharge Date/Time Discharge Diagnosis 1.Infectious encephalopathy, improved 2. Seizure disorder. 3. Dysphagia, improved 4. Systemic lupus erythematosus. 5. UTI. 6. Improvements in self-care and mobility and cognition. Patient Condition: Good Hospital Course The patient was admitted for comprehensive interdisciplinary rehabilitation and made steady functional gains from a Min level to a S/CA level for self care tasks and mobility including ambulating over 150 feet . Patient had significant agitation upon intial stay, which improved through environmental and medication management. Patient did report "I wwant to kill myself if I don't go home", and telepsch along with psychiatric nurse evaluation occurred. Patient had improvement in mood and affect and no longer had any suicidal ideation. Patient is being discharged home with her mother with the recommendation of home health PT, OT and RN follow up. The DC meds are per the medication reconciliation sheet. The discharge equipment recommendations include: FWW, BSC, shower chair. The patient will follow up with PMD upon DC. Long family conference via seismic interpreter, and family and patient are agreeable with the discharge plan. Home Meds Reported Medications Prednisone* (Prednisone*) 10 Mg Tab, 10 MG PO BID, TAB 08/20/18 Hydroxychloroquine Sulfate* (Hydroxychloroquine Sulfate*) 200 Mg Tablet, 200 MG PO BID, TAB 08/20/18 Calcium Carbonate/Vitamin D3 (OYSTER SHELL 500 MG + VIT D TB) 1 Each Tablet, 1 EACH PO BID, TAB 08/20/18 Ferrous Sulfate* (Ferrous Sulfate*) 325 Mg Tabec, 325 MG PO DAILY, TAB 08/20/18 Primary Care Provider Not On Staff Doctor ODALYS SHULTZ MD Sep 01, 2018 12:57
--- NOTE | 2018-09-01 13:45 | NUR ---
Dr. Shay seen patient and okayed to give IV/ABT Maxipime (9pm dose) at 2pm then then Discharge patient.
[2018-09-01 14:00] VITALS: BP 103/60; PULSE 96; RESP 18
--- NOTE | 2018-09-01 15:14 | NUR ---
ST provided basic verbal education to patient regarding use of external memory strategies in home environment. Patient verbalized comprehension.
--- NOTE | 2018-09-01 15:38 | NUR ---
TRUE oriental rug stretcher Summary Date of Discharge: 09/01/18 Patient Name: JESSICA BROCK MR#: [id number] Height: 5 ft 3 in Weight: 110 lbs 10.753 oz 50.200 kg Reason for Visit: NON TRAUMATIC BRAIN INJURY POSSIBLE DUE TO MENINGI Precautions: Date: 09/01/18 Time: 1538 User: LOC COTTO Patient's progress, Adm-->DC: Home Short-term Goals: 1. gait training 2. medications instruction 3. skin care 4. mobility training 5. Short-term goals not met and reason/barriers: met Achievement of Long-term Goals: Long-term Goals not met and reason/barriers: Bladder - level of function and accidents: continent Bowel - level of function and accidents: continent Skin: stage 1 Status: healing Treatment: foam cushion Changes: Pain: no c/o pain at this time Level: Location: Management: Changes: Functional levels: sba for safety Self Care: sba for safety Transfers: sbA Locomotion: independently Assistance requirements: Communication: with mild difficulty Social Cognition: requires amount of time to adjust social activities Safety awareness: Interdisciplinary interactions: Patient education: medications administration, skin care, Discharge needs: walker and shower chair Comorbid conditions: SLE, ESBL in urine
--- NOTE | 2018-09-01 18:40 | NUR ---
Patient is d/c to home. patient is alert and stable. no c/o discomfort. breathing even and unlabored. lung sounds clear bilaterally. ambulatory. Discharge instruction given to patient and Siv (MOM) using parts interpreter with Kosovan speaking with ID number of RAYNA. Dr Shay was present during Discharge instruction. all concerns was answered by Dr. Shay. IV/ABT maxipime given to patient at 2pm per Dr. Shay order. tolerated well. no A/R. Skin check was done with no new skin issue. Stage 1 on sacrococcyx healing. pictures taken. Patient is going to have Home Health PT/OT/Nurse. Arelis Ruiz DOOR HANGER made aware of the discharge. Patient equipment did not arrived at 1730 patient really wants to go home. Provided patient with Walker and stated that patient and MOM will come back tomorrow to picker the shower chair. Accompanied patient to the car with one of our staff.
[2018-09-01] MEDS ORDERED: ZOLPIDEM 5 MG TAB PO ONE (21:00)
--- NOTE | 2018-09-02 11:41 | NUR ---
[facility] PT Discharge Summary Date of Discharge: 09/01/18 Patient Name: JESSICA BROCK MR#: [id number] Height: 5 ft 3 in Weight: 110 lbs 10.753 oz 50.200 kg Reason for Visit: NON TRAUMATIC BRAIN INJURY POSSIBLE DUE TO MENINGI Precautions: forgetful, dec cognition Date: 09/01/18 Time: 1142 User: ESTRADA MARIE Patient's progress, Adm-->DC: Short-term Goals: 1. Bed Mobility Supervision safety 2. All transfers safety with Supervision 3. Gait training without AD Supervision, no loss of balance 4. up/down 1 flight stairs and/or 3 steps with CGA safely Pt made excellent gains during her stay at [facility]. At the time of eval, pt was min assist for bed mobility, min assist for transfers, min assist for gait no device 25ft. At the time of dc, pt was independent for bed mobility, mod ind for transfers, mod ind for gait no device 300ft, mod ind for stairs 12steps using 1 side rail. Pt met all STG's. Recommend home with HHPT and some assistance d/t forgetfulness and dec cognition. Pt dc'd home.
--- NOTE | 2018-09-02 13:42 | NUR ---
[facility] Discharge Summary Date of Discharge: 09/02/18 Patient Name: JESSICA BROCK MR#: [id number] Height: 110 ft 3 in Weight: 110 lbs 10.753 oz 50.200 kg Reason for Visit: NON TRAUMATIC BRAIN INJURY POSSIBLE DUE TO MENINGI Precautions: Date: 09/02/18 Time: 1342 User: BARBARA BENSON Patient's progress, Adm-->DC: Short-term Goals: 1.Solve semi-complex problems 80% with supervision 2. Tolerate regular solids / thin liquids 90% opportunities without s/s aspiration Short-term goals not met and reason/barriers: 1/2 goals met met 2/2 short LOS and red. motivation and compliance with tx plan. Achievement of Long-term Goals: 1/2 met 2/2 short LOS and reduced compliance with treatment plan. Swallow: reg solids/ thin liquids Assistance requirements: Communication: Able to express wants and needs, medical needs, home responisibilities and goals. Social Cognition: Reduced insight, benefits from continued education. Mild impairments in short term memory and reasoning. Motivation: Poor, impacted by reduced insight and behavior Safety awareness: Fair Patient education: External memory strategies/ organization in home environment. Discharge needs: External memory strategies and supervision with complex ADLs
--- NOTE | 2018-09-06 12:14 | NUR ---
Pt was seen by ST and POC was set up and initiated w/in four days of admission. LTG: Solve semi-complex problems with 90% accuracy with modified independence. Tolerate LRD w/out s/s aspiration in 95% opportunities.
== END 2018-09-01 18:40 | disposition home health service (06) | DRG 71 ==
LOC: VRC 22:14
PROVIDERS: ADMIT Physical Medicine & Rehabilitation; ATTEND Internal Medicine Pulmonary Disease
DX: G93.49 Other encephalopathy (principal); N39.0 Urinary tract infection, site not specified; G40.909 Epilepsy, unspecified, not intractable, without status epilepticus; R13.10 Dysphagia, unspecified; M32.9 Systemic lupus erythematosus, unspecified; D64.9 Anemia, unspecified; F43.23 Adjustment disorder with mixed anxiety and depressed mood; Z91.14 Patient's other noncompliance with medication regimen
CPT/HCPCS: 80053; 81001; 85025; 87081; 87086; 92507; 92523; 92610; 97110; 97112; 97116; 97163; 97166; 97530; 97535; J0692; J0696; J2060; J7512; J7517